=== PATIENT | male | born 1960 | race Caucasian/White ===

== ENCOUNTER 2018-09-20 00:25 | Outpatient (CLI) | payer MEDICAID, SELFPAY ==
--- NOTE | 2018-09-20 08:36 | DI.RAD_ITS ---
SYMPTOM/DIAGNOSIS; CHRONIC PAIN LEFT FOOT: Generalized osteoporosis is demonstrated. Post surgical changes involving the left great toe are noted, presumably in connection with hallux valgus surgery. There is DJD involving the interphalangeal joints, intertarsal joints and tarsal metatarsal joints. There is no evidence of a localized area of bony destruction. There is some soft tissue prominence over the distal foot. RIGHT FOOT: A hallux valgus deformity is demonstrated and there are flexion deformities involving the toes. DJD is identified at the first metatarsal phalangeal joint, intertarsal and tarsal metatarsal joints. There is no evidence of a localized area of bony destruction or mass. There is some mild soft tissue prominence over the dorsum of the distal foot.
== END 2018-09-20 00:45 ==
PROVIDERS: PCP General Practice; Visit Provider General Practice
DX: M79.671 Pain in right foot (principal); M79.672 Pain in left foot; G89.29 Other chronic pain; M81.0 Age-related osteoporosis without current pathological fracture; M19.072 Primary osteoarthritis, left ankle and foot; M20.31 Hallux varus (acquired), right foot; M21.271 Flexion deformity, right ankle and toes; M19.071 Primary osteoarthritis, right ankle and foot
CPT/HCPCS: 73630

== ENCOUNTER 2018-10-21 14:45 | Outpatient (CLI) | payer MEDICAID, SELFPAY ==
[2018-10-21 15:47] LABS: Anion Gap 12.3 mmol/L (3-11); BUN 21 mg/dL (7-18); CO2 27.7 mmol/L (21.0-32.0); CREATININE 1.53 mg/dL (0.70-1.30); Chloride 102 mmol/L (98-107); Estimated GFR 46.66 (mL/min/1.73m2); Potassium 3.6 mmol/L (3.5-5.1); Sodium 142 mmol/L (136-145)
== END 2018-10-21 15:05 ==
PROVIDERS: PCP General Practice; Visit Provider General Practice
DX: I10 Essential (primary) hypertension (principal)
CPT/HCPCS: 36415; 80051; 84520; 82565

== ENCOUNTER 2018-11-30 13:06 | Outpatient (CLI) | payer MEDICAID, SELFPAY ==
[2018-11-30 14:01] LABS: Uric Acid 8.9 mg/dL (3.5-7.2)
== END 2018-11-30 13:26 ==
PROVIDERS: PCP General Practice; Visit Provider General Practice
DX: M10.9 Gout, unspecified (principal)
CPT/HCPCS: 36415; 84550

== ENCOUNTER 2019-02-01 13:04 | Outpatient (CLI) | payer MEDICAID, SELFPAY ==
[2019-02-01 14:15] LABS: Anion Gap 8.8 mmol/L (3-11); BUN 45 mg/dL (7-18); CO2 28.2 mmol/L (21.0-32.0); CREATININE 2.01 mg/dL (0.70-1.30); Chloride 104 mmol/L (98-107); Estimated GFR 34.06 (mL/min/1.73m2); Potassium 4.1 mmol/L (3.5-5.1); Sodium 141 mmol/L (136-145)
== END 2019-02-01 13:24 ==
PROVIDERS: PCP General Practice; Visit Provider General Practice
DX: I10 Essential (primary) hypertension (principal)
CPT/HCPCS: 36415; 80051; 84520; 82565

== ENCOUNTER 2019-06-23 10:57 | Emergency (ER) | payer MEDICAID, SELFPAY ==
[2019-06-23 11:03] VITALS: BP 137/88; PULSE 82; RESP 18; TEMP 36.4; O2SAT 100
--- NOTE | 2019-06-23 11:03 | ED.GENADUL_ITS ---
Discharge Plan Disposition Patient Disposition: HOME Condition: Good Discharge Details Chief Complaint: RespSymp Clinical Impression: Cough Primary Care Provider: Unknown,Unknown ED Provider: Pat Quintana Home Meds and New Rx's Prescriptions: No Action latanoprost 0.005 % Drops 1 drp OPHTHALMIC (EYE) QPM RF: 0 amlodipine 10 mg Tablet 10 mg PO DAILY RF: 0 indomethacin 25 mg Capsule 25 mg PO DIRECTED RF: 0 hydrochlorothiazide 25 mg Tablet 25 mg PO DAILY RF: 0 metoprolol tartrate 25 mg Tablet 25 mg PO BID RF: 0 Discharge Instructions Instructions: Acute Cough (ED) Additional Instructions: Encourage water intake. Your evaluation today is reassuring. I am concerned that your cough may be associated with your lisinopril. I placed a call to Dr. Vee, to whom you will be referred for primary care, I am awaiting her callback. I will call you to discuss medication changes. If develop difficulty breathing, shortness of breath, chest pain or other new/worsening symptoms please seek care urgently once again. Otherwise, with plan to follow-up primary care next week. Care management will be in touch. Referrals: Gisela Vee [ NON-[facility] STAFF PHYSICIAN] - Discharge Data Discharge Date/Time-TO BE ENTERED AT DEPARTURE: 06/23/19 14:11 Medical Decision Making Patient is a pleasant 58-year-old male presenting today with chief complaint of cough. He reports a cough is been intermittent for the past month. States is been quite dry with no phlegm production. He denies any fevers chills. Denies any sore throat, congestion, chest pain. No recent travel. Denies any GI upset. States that this recent episode of coughing has been present for approximate the past week. He has not been feeling short of breath. Denies any history of COPD. Patient is neck smoker, last month approximately 30 years ago. Does report distant history of CHF, last issue especially 20 years ago. We do not have any medical history or medication list in the patient's chart. He does not know what medications he is on. These have been requested from his pharmacy by nursing staff. Will attempt to find more information on this patient. Patient only endorses history of HTN. STates he is taking medications for this. On exam, patient appears nontoxic. Vital signs are stable. Lungs are clear. He does have a bilateral lower extremity edema. He has a dressing over the left mid calf where he reports he has a chronic healing wound is being followed by [facility] [place]. Patient has a shuffled gait, he states htis is baseline and assocaiates with chronic foot issues for which he sees first aid instructor Plan for chest x-ray, laboratory evaluation. Will obtain EKG. At this point, I do not suspect the patient has ACS although we will be overly cautious and perform EKG and troponin. He is not having any chest pain. This is not exertional. With the extremity edema and a cough that has been present for the last month, I am concerned for CHF exacerbation. Also consider pulmonary embolism find this unlikely with no recent travel, no risk factors, no chest pain, pleuritic pain or shortness of breath. Also consider possible infectious etiology. No history of homelessness, hx of service or high risk factors for TB. Doubt pneumonia or influenza. EKG was reviewed by Dr. Locke. Patient's normal sinus rhythm with a rate of 79. Does have some nonspecific T wave abnormalities but no evidence of STEMI or acute ischemic pathology. Consulted with radiology. They advised that while there is a poor inspiratory effort, no acute pathology is noted on chest x-ray. Labs reviewed. No leukocytosis. Patient is mildly anemic. BUN is elevated 25 and creatinine is 1.57, this is baseline for the patient. Troponin is less than 0.05. BNP is normal at 69. Labs reviewed. Patient is on lisinopril. States that he has been taking lisinopril for several years. This is likely contributing to the patient's cough. Plan to consult with his new primary care please change him to a different antihypertensive Attempted to reach in service education teacher physician, did not reach them. Discussed medications further, patient had reported using Lisinopril but pharmacy reports that he is actually on amlodipine and not on lisinopril. Patient is unclear when he switched. At this time, I see no evidence of emergent pathology. History and exam is inconcistent with ACS, PE, no evdience of pneumonia. At this time, patient will be referred to PCP, I have asked our child caregiver private home to help arrange for f/u with PCP next week. All of the patients questions and concerns were addressed, he is in agreement with this plan. HPI General Mode of arrival: ambulatory . Date/Time Provider Initiated Documentation: 06/23/19 11:03 . Limitations to Documentation: no limitations . Information obtained by: patient and RN notes reviewed . History of Present Illness 58 year old M presents to the emergency department with the chief complaint of intermittent cough, described as mild, Patient started experiencing this month(s) (1) and it has been intermittent. No relieving factors improve symptom(s), No exacerbating factors reported . Patient notes no other symptoms. and cough; denies chest pain, diaphoresis, fever/chills, loss of appetite, malaise, nausea/vomiting, rash, shortness of breath and weakness. Patient did receive the following treatments prior to arrival, none Related Data Home Medications Medication Instructions Recorded Confirmed amlodipine 10 mg PO DAILY 06/23/19 06/23/19 hydrochlorothiazide 25 mg PO DAILY 06/23/19 06/23/19 indomethacin 25 mg PO DIRECTED 06/23/19 06/23/19 latanoprost 1 drp OPHTHALMIC (EYE) QPM 06/23/19 06/23/19 metoprolol tartrate 25 mg PO BID 06/23/19 06/23/19 Allergies Allergy/AdvReac Type Severity Reaction Status Date / Time No Known Allergies Allergy Unverified 06/23/19 11:07 Review of Systems Constitutional Constitutional: Reports as per HPI, Denies chills, Denies fatigue, Denies fever(s), Denies headache(s), Denies lethargy, Denies poor appetite and Denies weight loss Eyes Eyes: Denies change in vision ENT Ears, Nose, Mouth, and Throat: Denies dizziness and Denies headache(s) Cardiovascular Cardiovascular: Reports as per HPI, Denies chest pain, Denies chest pain at rest, Denies chest pain with activity, Denies diaphoresis, Reports pedal edema, Reports edema, Reports leg edema, Denies lightheadedness, Denies radiating jaw, neck or arm pain, Denies palpitations, Denies dyspnea and Denies dyspnea on exertion Respiratory Respiratory: Reports as per HPI, Denies chest congestion, Reports cough, Denies hemoptysis, Denies excessive phlegm production (states cough has been dry), Denies pain on inspiration, Denies pain with cough, Denies dyspnea, Denies dyspnea on exertion and Denies wheezing Gastrointestinal Gastrointestinal: Reports as per HPI, Denies abdominal pain, Denies diarrhea, Denies nausea and Denies vomiting Genitourinary Genitourinary: Denies system reviewed and no additional complaints, except as docu (denies change in urinary habits) Musculoskeletal Musculoskeletal: Reports as per HPI and Denies back pain Integumentary/Breasts Skin/Breast: Reports as per HPI and Denies rash Neurologic Neurologic: Reports as per HPI, Denies dizziness and Denies headache(s) Endocrine Endocrine: Denies fatigue and Denies palpitations Allergic/Immunologic Allergic/Immunologic: Denies wheezing PFSH Social History Smoking/Tobacco Use Status: Former Tobacco Use Alcohol Intake: former Exam Const General: cooperative, healthy appearing, comfortable, no acute distress and well developed Nutritional Appearance: well nourished and overweight Orientation: alert, awake and oriented x3 HENMT Head: normal to inspection Ears: hearing grossly normal bilaterally Mouth: moist mucous membranes Chest Chest: normal inspection of the chest, normal palpation of entire chest wall and no crepitus Resp Effort & Inspection: normal respiratory effort, able to speak in complete sentences and no respiratory distress Auscultation: clear to auscultation bilaterally, no rales, no rhonchi and no wheezes Cardio Rate: regular rate Rhythm: regular rhythm Heart Sounds: S1 normal and S2 normal GI Inspection: normal to inspection, no edema and non-distended Palpation: soft, no hepatosplenomegaly, not firm, no guarding, not rigid and nontender Auscultation: normal bowel sounds Skin Wounds: wounds noted (chronic, healing wound LLE) Neuro General: alert, awake and oriented x3 Cognition: normal cognition Speech: speech normal Gait: normal gait Extrem General: normal capillary refill, no calf tenderness, abnormal gait (patient states difficulty at baseline secondary to chronic foot pain) and edema (1+ BLE edema) Laterality: bilateral Psych Appearance: grossly normal and well kempt Mental Status: mental status grossly normal Speech and Movement: speech and movement normal
--- NOTE | 2019-06-23 11:30 | DI.RAD_ITS ---
EXAM: XR CHEST 2V PA LATERAL INDICATION: cough. COMPARISON: No exams were available for comparison TECHNIQUE: 2D digital imaging was performed. FINDINGS: Exam is limited by poor pulmonary inflation on both views. The heart size is within normal limits. The aorta is tortuous. The lungs are grossly clear. IMPRESSION: Limited exam. No acute abnormality. DATA REPOSITORY: RADIATION DOSE DELIVERED:
[2019-06-23 11:54] LABS: Abs Immature Grans 0.02 k/cumm (0.0-0.09); Absolute Basophil Count 0.03 k/cumm (0.0-0.2); Absolute Eosinophil Count 0.44 k/cumm (0.0-0.7); Absolute Lymphocyte Count 1.74 k/cumm (1.2-3.4); Absolute Monocyte Count 0.74 k/cumm (0.11-0.7); Absolute Neutrophil Count 3.56 k/cumm (1.2-6.7); Basophils % 0.5; Eosinophils % 6.7; HCT 38.8 % (40.0-50.0); HGB 12.6 g/dL (13.5-17.5); Immature Grans % 0.3 %; Lymphocytes % 26.6; Mean Corp. HGB Concentration 32.5 g/dL (32.0-36.0); Mean Corpuscular Hemoglobin 28.3 pg (27.0-33.0); Mean Platelet Volume 8.9 fL (8.0-11.0); Monocytes % 11.3; Neutrophils % 54.6; Platelet Count 325 x1000/uL (130-400); RBC 4.46 m/cumm (4.50-6.00); White Blood Cell Count 6.53 k/cumm (4.4-10.8)
[2019-06-23 12:16] LABS: ALT 36 U/L (16-63); AST 21 U/L (15-37); Albumin 3.4 g/dL (3.4-5.0); Alkaline Phosphatase 67 U/L (46-116); Anion Gap 11.1 mmol/L (3-11); BUN 25 mg/dL (7-18); Bilirubin, Total 0.1 mg/dL (0.2-1.0); CO2 24.9 mmol/L (21.0-32.0); CREATININE 1.57 mg/dL (0.70-1.30); Calcium 8.2 mg/dL (8.5-10.1); Chloride 106 mmol/L (98-107); Estimated GFR 45.29 (mL/min/1.73m2); Glucose 114 mg/dL (74-106); NT-proBNP 69 pg/mL (<300); Sodium 142 mmol/L (136-145); Total Protein 7.2 g/dL (6.4-8.2); Troponin I < 0.05 ng/Ml (<0.06)
[2019-06-23 14:00] VITALS: BP 145/94; PULSE 78; RESP 18; TEMP 36.4; O2SAT 96
== END 2019-06-23 14:11 | disposition home or self-care (01) ==
PROVIDERS: Emergency Provider Physician Assistant
DX: R05 Cough (principal); I10 Essential (primary) hypertension
CPT/HCPCS: 80053; 93005; 99283; 71046; 83735; 83880; 84484; 85025; 93010

== ENCOUNTER 2020-01-08 12:48 | Inpatient (IN) | payer MEDICAID, SELFPAY ==
[2020-01-08] VITALS (7 sets, daily range): BP systolic 118–168; BP diastolic 72–91; PULSE 92–119; RESP 19–20; TEMP 37.1–39; O2SAT 94–98
--- NOTE | 2020-01-08 12:45 | RT.EKG_ITS ---
APPROVED REPORT Exam: Resting ECG Patient Location: E HR:104 bpm ECG Measurements Heart Rate 104 AXIS ND 165 P 54 QRSd 101 QRS -34 QT 357 T 123 QTc 469 Conclusion Sinus tachycardia...rate> 99 Left axis deviation...QRS axis (-30,-90) Abnormal T, consider ischemia, lateral leads...T <-0.20mV, I aVL V5 V6 sinus tachycardia at 104, left axis deviation, T wave inversion lead I and aVL, no STEMI, nondiagnost ic EKG
[2020-01-08 13:41] LABS: Abs Immature Grans 0.05 10^3/uL (0.0-0.06); Absolute Basophil Count 0.03 10^3/uL (0.0-0.2); Absolute Eosinophil Count 0.07 10^3/uL (0.0-0.7); Absolute Neutrophil Count 7.55 10^3/uL (1.2-6.7); Basophils % 0.3; Eosinophils % 0.7; HCT 39.9 % (40.0-50.0); HGB 12.8 g/dL (13.5-17.5); Immature Grans % 0.5; Lymphocytes % 10.2; MCH 27.5 pg (27.0-33.0); MCHC 32.1 % (32.0-36.0); MCV 85.8 fL (80-95); Monocytes % 11.2; Neutrophils % 77.1; Nucleated RBC 0 %; Platelet Count 287 10^3/uL (130-400); RBC 4.65 10^6/uL (4.36-5.78); RDW 13.9 % (11.8-14.1); RDW-SD 43.4 fL
[2020-01-08 13:57] LABS: ALT 24 U/L (16-63); AST 16 U/L (15-37); Albumin 3.2 g/dL (3.4-5.0); Alkaline Phosphatase 62 U/L (46-116); Anion Gap 10.7 mmol/L (3-11); BUN 25 mg/dL (7-18); Bilirubin, Total 0.7 mg/dL (0.2-1.0); CO2 22.3 mmol/L (21.0-32.0); CREATININE 1.78 mg/dL (0.70-1.30); Calcium 8.9 mg/dL (8.5-10.1); Chloride 102 mmol/L (98-107); Creatine Kinase 88 U/L (39-308); Estimated GFR 39.05 (mL/min/1.73m2); Glucose 91 mg/dL (74-106); Potassium 3.7 mmol/L (3.5-5.1); Sodium 135 mmol/L (136-145); Total Protein 7.6 g/dL (6.4-8.2); Troponin I < 0.05 ng/mL (<0.06)
--- NOTE | 2020-01-08 13:57 | DI.RAD_ITS ---
EXAM: XR PORTABLE CHEST AP CLINICAL HISTORY: generalized weakness TECHNIQUE: 2D digital imaging was performed. COMPARISON: CR XR CHEST 2V PA LATERAL from 06/23/2019 FINDINGS: Exam is limited by poor pulmonary inflation. The heart size is within normal limits. The lungs are grossly clear. IMPRESSION: No acute pulmonary findings. DATA REPOSITORY: RADIATION DOSE DELIVERED:
--- NOTE | 2020-01-08 14:17 | DI.VRAD_ITS ---
PROCEDURE INFORMATION: Exam: XR Chest, 1 View Exam date and time: 01/08/2020 1:58 PM Age: 59 years old Clinical indication: Other: Weakness TECHNIQUE: Imaging protocol: XR of the chest Views: 1 view. COMPARISON: CR XR CHEST 2V PA LATERAL 06/23/2019 12:42 PM FINDINGS: Lungs: Unremarkable. No consolidation. Pleural space: Unremarkable. No pleural effusion. No pneumothorax. Heart/Mediastinum: Unremarkable. No cardiomegaly. Bones/joints: Degenerative thoracic spine. IMPRESSION: No acute findings. Dictated and Authenticated by: Aki Garcia MD. Ordering:TIMBO San MD
--- NOTE | 2020-01-08 14:27 | ED.GENADUL_ITS ---
Discharge Plan Disposition Condition: Improving Discharge Details Chief Complaint: GenMedical Admit Date/Time: 01/09/20 09:14 Admit Provider: Sarmad Kahn Attending Provider: Sarmad Kahn Primary Care Provider: Viridiana Torres ED Provider: Mena Locke Discharge Instructions Activity:: Activity as Tolerated Equipment/Supplies:: No Equipment Needed Diet:: As Tolerated Discharge Orders Discharge Orders: Discharge Order (Routine); Ordered 01/11/20 Ordered By: Liliana Del Castillo Discharge Data Discharge Date/Time-TO BE ENTERED AT DEPARTURE: 01/08/20 16:40 Medical Decision Making Will Quezada is a 59 y/o man with h/o rheumatoid and osteoarthritis, gout, HTN who presented to the emergency department with generalized arthralgias worse in wrists and knees causing him to not move from a chair even to use the bathroom over the pat 2 days. No TTP of joints on exam, significant pain with ranging knees and wrists. Concern for rheumatoid arthritis flare. Doubt gout, metabolic/lyte derangement. Exam/hx not c/w septic arthritis, meningitis, acute spinal cord pathology, CVA. Also doubt ACS, sepsis, other acute life-threatening process, but given no mobility from chair in two days plan for screening labs, EKG, UA, CXR. CXR negative. Labs non-diagnostic. Plan for steroids, admission for pain control, further eval, PT/OT. Clinical Impression: severe joint pain, ambulatory dysfunction Disposition: [facility] inpt Medical Records Medical records reviewed: Yes I reviewed the patient's medical records. Imaging Data Radiologic Study: Attestation: I personally reviewed and interpreted this imaging study as follows: Radiologist's impression: Exam(s) PROCEDURE INFORMATION: Exam: XR Chest, 1 View Exam date and time: 01/08/2020 1:58 PM Age: 59 years old Clinical indication: Other: Weakness TECHNIQUE: Imaging protocol: XR of the chest Views: 1 view. COMPARISON: CR XR CHEST 2V PA LATERAL 06/23/2019 12:42 PM FINDINGS: Lungs: Unremarkable. No consolidation. Pleural space: Unremarkable. No pleural effusion. No pneumothorax. Heart/Mediastinum: Unremarkable. No cardiomegaly. Bones/joints: Degenerative thoracic spine. IMPRESSION: No acute findings. Lab Data Lab results reviewed: Yes I reviewed the patient's lab results. Labs: Laboratory Tests Range/Units 01/08/20 01/08/20 01/08/20 13:35 13:35 13:35 WBC (4.4-10.8) 10^3/uL 9.80 RBC (4.36-5.78) 10^6/uL 4.65 Hgb (13.5-17.5) g/dL 12.8 L Hct (40.0-50.0) % 39.9 L MCV (80-95) fL 85.8 MCH (27.0-33.0) pg 27.5 MCHC (32.0-36.0) % 32.1 RDW (11.8-14.1) % 13.9 Plt Count (130-400) 10^3/uL 287 MPV (8.0-11.0) fL 9.0 Immature Gran % 0.5 Neutrophils % 77.1 Lymphocytes % 10.2 Monocytes % 11.2 Eosinophils % 0.7 Basophils % 0.3 Nucleated RBC % % 0 Absolute Neutrophils (1.2-6.7) 10^3/uL 7.55 H Absolute Lymphocytes (1.2-3.4) 10^3/uL 1.00 L Absolute Monocytes (0.1-0.8) 10^3/uL 1.10 H Absolute Eosinophils (0.0-0.7) 10^3/uL 0.07 Absolute Basophils (0.0-0.2) 10^3/uL 0.03 VBG Lactate (0.6-1.4) mmol/L 1.0 Sodium (136-145) mmol/L 135 L Potassium (3.5-5.1) mmol/L 3.7 Chloride (98-107) mmol/L 102 Carbon Dioxide (21.0-32.0) mmol/L 22.3 Anion Gap (3-11) mmol/L 10.7 BUN (7-18) mg/dL 25 H Creatinine (0.70-1.30) mg/dL 1.78 H Estimated GFR/1.73 m2 (mL/min/1.73m2) 39.05 Glucose (74-106) mg/dL 91 Calcium (8.5-10.1) mg/dL 8.9 Magnesium (1.8-2.4) mg/dL 2.0 Total Bilirubin (0.2-1.0) mg/dL 0.7 AST (15-37) U/L 16 ALT (16-63) U/L 24 Alkaline Phosphatase (46-116) U/L 62 Creatine Kinase (39-308) U/L 88 Troponin I (<0.06) ng/mL < 0.05 Total Protein (6.4-8.2) g/dL 7.6 Albumin (3.4-5.0) g/dL 3.2 L ECG Data Attestation: I personally reviewed and interpreted this ECG (s) as follows: Interpretation: EKG shows sinus tachycardia at 104, left axis deviation, T wave inversion lead I and aVL, no STEMI, nondiagnostic EKG HPI General Mode of arrival: EMS . Date/Time Provider Initiated Documentation: 01/08/20 12:57 . Limitations to Documentation: no limitations . Information obtained by: patient, RN notes reviewed and old records reviewed . HPI Narrative: Will Quezada is a 59 y/o man with h/o rheumatoid arthritis on hydroxychloroquine, osteoarthritis, HTN, and gout presenting to the emergency department with joint pain. Pt reports that he was diagnosed with rheumatoid and osteoarthritis years ago and is currently having an arthritis flare for the past 3 days. Pt reports that he ran out of HCTZ a few days ago but has been taking his other medication as usual. Pt reports that his pain has been so severe that he has not been able to get out of his chair for the past 2 days. Pt reports pain is everywhere, all of my joints, but worse in both knees and wrists. Pt reports that pain is same in quality and location as past arthritis flares but worse in severity with this episode. He denies chest pain, abdominal pain, back pain, vomiting, diarrhea, numbness, weakness, fever, rash. Pt reports that other than joint pain he feels well and in his usual state of health. Related Data Home Medications Medication Instructions Recorded Confirmed allopurinol 300 mg PO DAILY #30 tab 01/11/20 amlodipine 10 mg PO DAILY #30 tab 01/11/20 colchicine [Colcrys] 0.6 mg PO DAILY #14 tab 01/11/20 furosemide 20 mg PO DAILY #30 tab 01/11/20 hydroxychloroquine 200 mg PO BID #30 tab 01/11/20 lisinopril 20 mg PO DAILY #30 tab 01/11/20 metoprolol tartrate 25 mg PO BID #60 tab 01/11/20 prednisone 50 mg PO DAILY #50 tab 01/11/20 Previous Rx's Medication Instructions Recorded allopurinol 300 mg PO DAILY #30 tab 01/11/20 amlodipine 10 mg PO DAILY #30 tab 01/11/20 colchicine [Colcrys] 0.6 mg PO DAILY #14 tab 01/11/20 furosemide 20 mg PO DAILY #30 tab 01/11/20 hydroxychloroquine 200 mg PO BID #30 tab 01/11/20 lisinopril 20 mg PO DAILY #30 tab 01/11/20 metoprolol tartrate 25 mg PO BID #60 tab 01/11/20 prednisone 50 mg PO DAILY #50 tab 01/11/20 Allergies Allergy/AdvReac Type Severity Reaction Status Date / Time No Known Allergies Allergy Unverified 01/08/20 12:56 General Stated Complaint: GenMedical JT: 3 Review of Systems Narrative: Constitutional: denies fevers Eyes: denies eye pain ENT: denies ear pain, dental pain, sore throat Cardiovascular: denies chest pain, edema Respiratory: denies SOB, cough GI: denies abdominal pain, vomiting, diarrhea : denies flank pain MSK: denies back pain, neck pain, myalgias, reports generalized arhtralgias worse in b/l knees and b/l wrists Skin: denies rash Neuro: denies headaches, numbness, weakness PFSH Medical History Cough Gout HTN (hypertension) Social History Smoking/Tobacco Use Status: Former Tobacco Use Alcohol Intake: former Drug use: Never Substance use type: does not use Do you feel safe at home: Yes Do you feel safe in your relationship?: Yes Exam Narrative Exam Narrative: Constitutional: well and [id number], pleasant, conversing normally HENT: head atraumatic/normocephalic/normal inspection, mucous membranes moist Eyes: conjunctiva normal, sclera normal, pupils 3mm b/l Neck: no stridor, normal ROM, trachea midline Resp: normal work of breathing, LCTAB Cardio: normal rate, normal rhythm, no murmur appreciated Skin: warm, dry, normal color, no rash Neuro: alert, not altered, grossly non-focal, normal tone Ext: no edema, b/k knees without effusion/TTP/erythema/warmth, significant pain with minimal movement of knees, b/l wrists NTTP without effusion/erythema/warmth, moderate pain with ROM, no hip/ankle/shoulder/elbow TTP b/l. Psych: normal mood, normal affect, normal behavior Course Vital Signs Vital signs: Vital Signs Temperature 37.1 C 01/08/20 12:53 Pulse 92 H 01/08/20 12:53 Respiratory Rate 20 01/08/20 12:53 Blood Pressure 118/72 01/08/20 12:53 Pulse Oximetry 97 01/08/20 12:53 Temperature 37.1 C 01/08/20 12:53 Pulse 92 H 01/08/20 12:53 Respiratory Rate 01/08/20 13:04 Respiratory Effort 01/08/20 13:04 Respiratory Depth Normal 01/08/20 13:04 Respiratory Pattern Normal 01/08/20 13:04 Blood Pressure 118/72 01/08/20 12:53 Pulse Oximetry 97 01/08/20 12:53 Oxygen Delivery Method Room Air 01/08/20 12:53 Oxygen Flow Rate 0 01/08/20 12:53 Pain Level 4 01/08/20 12:53 Lab/Test Results Lab/Test Results: Laboratory Tests Range/Units 01/08/20 01/08/20 01/08/20 13:35 13:35 13:35 WBC (4.4-10.8) 10^3/uL 9.80 RBC (4.36-5.78) 10^6/uL 4.65 Hgb (13.5-17.5) g/dL 12.8 L Hct (40.0-50.0) % 39.9 L MCV (80-95) fL 85.8 MCH (27.0-33.0) pg 27.5 MCHC (32.0-36.0) % 32.1 RDW (11.8-14.1) % 13.9 Plt Count (130-400) 10^3/uL 287 MPV (8.0-11.0) fL 9.0 Immature Gran % 0.5 Neutrophils % 77.1 Lymphocytes % 10.2 Monocytes % 11.2 Eosinophils % 0.7 Basophils % 0.3 Nucleated RBC % % 0 Absolute Neutrophils (1.2-6.7) 10^3/uL 7.55 H Absolute Lymphocytes (1.2-3.4) 10^3/uL 1.00 L Absolute Monocytes (0.1-0.8) 10^3/uL 1.10 H Absolute Eosinophils (0.0-0.7) 10^3/uL 0.07 Absolute Basophils (0.0-0.2) 10^3/uL 0.03 VBG Lactate (0.6-1.4) mmol/L 1.0 Sodium (136-145) mmol/L 135 L Potassium (3.5-5.1) mmol/L 3.7 Chloride (98-107) mmol/L 102 Carbon Dioxide (21.0-32.0) mmol/L 22.3 Anion Gap (3-11) mmol/L 10.7 BUN (7-18) mg/dL 25 H Creatinine (0.70-1.30) mg/dL 1.78 H Estimated GFR/1.73 m2 (mL/min/1.73m2) 39.05 Glucose (74-106) mg/dL 91 Calcium (8.5-10.1) mg/dL 8.9 Magnesium (1.8-2.4) mg/dL 2.0 Total Bilirubin (0.2-1.0) mg/dL 0.7 AST (15-37) U/L 16 ALT (16-63) U/L 24 Alkaline Phosphatase (46-116) U/L 62 Creatine Kinase (39-308) U/L 88 Troponin I (<0.06) ng/mL < 0.05 Total Protein (6.4-8.2) g/dL 7.6 Albumin (3.4-5.0) g/dL 3.2 L
--- NOTE | 2020-01-08 16:21 | HPE_ITS ---
Date of service: 01/08/20 Time of Service: 16:21 Assessment and Plan Assessment and plan (1) Ambulatory dysfunction: Start date: 01/08/20 Start time: 16:28 Status: Acute Assessment and plan: Inability to move due to OA/RA, started on prednisone PT/OT consulted. (2) Osteoarthritis: Start date: 01/08/20 Start time: 16:28 Status: Chronic Assessment and plan: Take plaquinel for RA as above Qualifiers: Osteoarthritis location: multiple joints Osteoarthritis type: unspecified Qualified Code(s): M15.9 - Polyosteoarthritis, unspecified (3) Arthritis, rheumatoid: Start date: 01/08/20 Start time: 16:29 Status: Chronic Assessment and plan: as above Qualifiers: Rheumatoid arthritis location: multiple sites Rheumatoid factor presence: unspecified presence Qualified Code(s): M06.9 - Rheumatoid arthritis, unspecified (4) Gout: Start date: 01/08/20 Start time: 16:50 Status: Acute Assessment and plan: Left knee erythemic and swollen, will also r/o gout, uric acid, esr, crp Qualifiers: Gout site: multiple sites Chronicity: chronic (5) HTN (hypertension): Start date: 01/08/20 Start time: 16:29 Status: Chronic Assessment and plan: Monitor bp, will continue home medication above case discussed with Dr. Kahn who is in agreement. Qualifiers: Hypertension type: essential hypertension Qualified Code(s): I10 - Essential (primary) hypertension History of Present Illness History of Present Illness Chief Complaint: Ambulatory dysfunction and pain Narrative: 59 y.o male with PMH, HTN, CKD, RA/OA presents to [facility] ED with inability to ambulate over the weekend due to worsening joint pain. Mr. Quezada was sitting at his house all weekend unable to move due to worsening knee pain from his OA. He states he has not found a new provider since his last one and his pain has been getting worse. He was unable to get out of the chair causing him to defecate and urinate all over himself over the weekend. Labs unremark able, renal function at baseline, he takes his medications regularly he has been asked to be admitted to m/s obs for further management. He was started on prednisone in addition to plaquinel, PT/OT will be consulted as well. Review of Systems All systems reviewed & are unremarkable except as noted in HPI and below PFSH Medical History Cough (Inactive) Gout (Inactive) HTN (hypertension) (Chronic) Social History Smoking/Tobacco Use Status: Former Tobacco Use Alcohol Intake: former Drug use: Never Substance use type: does not use Do you feel safe at home: Yes Do you feel safe in your relationship?: Yes Meds Home Medications and Allergies Home Medications Medication Instructions Recorded Confirmed Type amlodipine 10 mg PO DAILY 06/23/19 01/08/20 History hydrochlorothiazide 25 mg PO DAILY 06/23/19 01/08/20 History allopurinol 300 mg PO DAILY 01/08/20 01/08/20 History furosemide 20 mg PO DAILY 01/08/20 01/08/20 History hydroxychloroquine 200 mg PO BID 01/08/20 01/08/20 History lisinopril 40 mg PO DAILY 01/08/20 01/08/20 History Allergies Allergy/AdvReac Type Severity Reaction Status Date / Time No Known Allergies Allergy Unverified 01/08/20 12:56 Exam Const General: ill appearing chronically Nutritional Appearance: obese Orientation: alert, awake and oriented x3 HENMT Head: normocephalic and atraumatic Eyes Pupils: PERRL EOM: EOM intact bilaterally Neck Neck: no JVD Resp Auscultation: clear to auscultation bilaterally Cardio Jugular venous pressure: no JVD Rate: regular rate Rhythm: regular rhythm Heart Sounds: S1 normal and S2 normal GI Palpation: soft and no hepatosplenomegaly Skin General skin exam: dry skin Lesions: no lesions Rashes: no rashes Neuro General: patient alert, patient awake and patient oriented x3 Psych Speech and Movement: speech and movement normal Mood: congruent mood Results Labs Result diagrams: 01/08/20 13:35 01/08/20 13:35 Labs: Laboratory Results - last 24 hr 01/08/20 01/08/20 01/08/20 13:35 13:35 13:35 WBC 9.80 RBC 4.65 Hgb 12.8 L Hct 39.9 L MCV 85.8 MCH 27.5 MCHC 32.1 RDW 13.9 Plt Count 287 MPV 9.0 Immature Gran % 0.5 Neutrophils % 77.1 Lymphocytes % 10.2 Monocytes % 11.2 Eosinophils % 0.7 Basophils % 0.3 Nucleated RBC % 0 Absolute Neutrophils 7.55 H Absolute Lymphocytes 1.00 L Absolute Monocytes 1.10 H Absolute Eosinophils 0.07 Absolute Basophils 0.03 VBG Lactate 1.0 Sodium 135 L Potassium 3.7 Chloride 102 Carbon Dioxide 22.3 Anion Gap 10.7 BUN 25 H Creatinine 1.78 H Estimated GFR/1.73 m2 39.05 Glucose 91 Calcium 8.9 Magnesium 2.0 Total Bilirubin 0.7 AST 16 ALT 24 Alkaline Phosphatase 62 Creatine Kinase 88 Troponin I < 0.05 Total Protein 7.6 Albumin 3.2 L Last Vital Signs Temp 37.1 C 01/08/20 12:53 Pulse 92 H 01/08/20 12:53 Resp 20 01/08/20 13:04 BP 118/72 01/08/20 12:53 Pulse Ox 97 01/08/20 12:53 COVID-19 Screening Have you,or household,traveled outside [place] in last 14 days?: No Had IN PERSON contact w/suspected or confirmed C-19 person: No
[2020-01-08 17:37] LABS: Bilirubin Negative (Negative); Blood Moderate (Negative); Clarity Clear (Clear); Glucose Negative (Negative); Ketones Negative (Negative); Leukocyte Esterase Negative (Negative); Nitrite Negative (Negative); Specific Gravity >= 1.030 (1.005-1.025); Urobilinogen 0.2 EU/dL (Up TO 0.2); pH 5.5 (5-8)
[2020-01-08 17:42] LABS: C-Reactive Protein 23.48 mg/dL (0.0-0.3); Uric Acid 9.1 mg/dL (3.5-7.2)
[2020-01-08 17:50] LABS: Troponin I < 0.05 ng/mL (<0.06)
[2020-01-08 17:53] LABS: Bacteria Few HPF (Negative); C & S Indicated? No; Casts Negative LPF (Negative); Crystals Negative HPF (Negative); Epithelial Cells Negative HPF (Negative); Mucus Trace (Negative); Other Cells Negative (Negative); WBC Negative HPF (0-5)
[2020-01-08] MEDS: Acetaminophen 325 MG TAB 650 MG PO (18:20)
[2020-01-08] MEDS: traMADol 50 MG TAB PO (18:20)
[2020-01-08 18:38] LABS: ESR 59 mm/hr (1-20)
[2020-01-08] MEDS: Normal Saline Flush 10 ML SYR IVP (19:56)
[2020-01-08] MEDS: Enoxaparin 40 MG/0.4 ML SYR SC (19:56)
[2020-01-08] MEDS: Hydroxychloroquine 200 MG TAB PO (19:56)
[2020-01-09 03:49] VITALS: BP 147/88; PULSE 101; RESP 16; TEMP 37.9; O2SAT 95
[2020-01-09] MEDS: hydroCHLOROthiazide 25 MG TAB PO (08:01)
[2020-01-09] MEDS: predniSONE 20 MG TAB 60 MG PO (08:01)
[2020-01-09] MEDS: Furosemide 20 MG TAB PO (08:02)
[2020-01-09] MEDS: Omeprazole 20 MG CAPCR PO (08:02)
[2020-01-09] MEDS: amLODIPine 10 MG TAB PO (08:02)
[2020-01-09] MEDS: traMADol 50 MG TAB PO ×2 (08:02→14:39)
[2020-01-09] MEDS: Allopurinol 300 MG TAB PO (08:02)
[2020-01-09] MEDS: Hydroxychloroquine 200 MG TAB PO ×2 (08:02→19:36)
[2020-01-09 08:18] LABS: COVID-19 RT-PCR UVMMC Result Negative (Negative)
[2020-01-09 08:26] VITALS: BP 131/79; PULSE 115; RESP 19; TEMP 37.8; O2SAT 96
[2020-01-09 08:29] VITALS: TEMP 37.8
[2020-01-09] MEDS: Acetaminophen 325 MG TAB 650 MG PO (08:29)
--- NOTE | 2020-01-09 08:49 | PDOC.CMIN ---
- If Service Date Differs Date of service: 01/09/20 Time of Service: 17:16 Care Management Initial Assess REASON FOR HOSPITALIZATION:: Pain, Ambulatory dysfunction PAST MEDICAL HISTORY/PAST SURGICAL HISTORY:: Cough, Gout, HTN, CKD, RA/OA presents to [facility] ED with inability to ambulate over the weekend due to worsening joint pain. Mr. Quezada was sitting at his house all weekend unable to move due to worsening knee pain from his OA. PREVIOUS FUNCTIONAL STATUS/SOCIAL/FAMILY SUPPORTS:: Will resides with his significant other in [place], [place]. He reports living locally for the last two years and enjoying his custodial. 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 He speaks highly of the company. Will reports his quality of life is limited by pain r/t RA and since his PCP retired, he has not been medically managed. He reports no longer seeing a [facility] RA specialist (previously Earline Bernal), labs not being monitored and medications not being refilled. He reports being able to drive but not currently having a vehicle. He reports being aware of local resources and does not identify any needs that are not currently being met (except his medical needs). CURRENT FUNCTIONAL STATUS:: Will is lying in bed, forthcoming with information and pleasant in action. ADVANCE DIRECTIVES:: None on file at [facility]. CODE STATUS:: Full Code INSURANCE COVERAGE / FINANCIAL ISSUES:: Medicaid CURRENT HOME/COMMUNITY SERVICES/EQUIPMENT:: No current services or equipment. PRIMARY CARE PHYSICIAN:: Referral faxed to Renaldo Will will require [facility] support for transportation to appointments. POTENTIAL DISCHARGE NEEDS:: Nutrition consult, physical therapy/occupational therapy evaluations, determination of discharge planning recommendations. PATIENT/FAMILY EDUCATION NEEDS:: Review of discharge instructions, discuss Ask Me Three. ANTICIPATED BARRIERS TO DISCHARGE:: None identified. TRANSPORTATION:: TBD by disposition. PLAN:: Will will be evaluated for further needs, CM continues to follow.
--- NOTE | 2020-01-09 09:02 | OT.INIE ---
Occupational Therapy Notes Inpatient Occupational Therapy Evaluation Date: 01/09/20 Referring Doctor:Nuha Almazan NP OT Orders: Non-Urgent Precautions: Fall, Standard, Full PATIENT PROFILE/ADMITTING DIAGNOSIS: Pt presented to the ED on 01/08/20 with c/o pain in his (B) LE. He was admitted to Med Surg with Gout, OA, RA, and HTN. Past Medical History- Medical History Cough (Inactive) Gout (Inactive) HTN (hypertension) (Chronic) Social History/Home Situation: Pt states that he lives in an apartment with his girlfriend. He reports that he has stairs to enter and that he has a walk in shower but denies discussing his baseline level of function reporting that he is (I) when he is not in pain. He can drive but is not currently as he is in between cars and he notes that he has no issues when the pain is not present. Pt reports that he utilizes a cane at times for functional mobility. Equipment owned/DME: Cane SUBJECTIVE: Pt was lying in bed when OT arrived. He is agreeable to OT session but slightly agitated as he reports a 5-7/10 pain throughout his (B) LE and (R) UE which he refuses to move at this time. OT does try to assess pt's baseline when he reports I would rather you figure out my pain because none of that matters. OBJECTIVE: General Observation: (R) UE with limited AROM, IV (R) UE, decreased (B) LE movement, pt expresses pain and pain behaviors throughout session. Mental Status: A&Ox3 Pain: 5-7/10 pain ROM: RUE Pt denies only slight shoulder flexion L UE AROM WFL STRENGTH: RUE pt has weak public health staff nurse strength LUE 4/5 throughout globally SENSATION: Intact (B) UE FUNCTIONAL MOBILITY/ADLS: Supine-sit (S) Sit-supine (S) BATHING Pt denies performance due to his pain. DRESSING Sitting in bed pt denies performance of don and doffing socks and reports that he is not interested. He was willing to perform AROM which he has AROM WFL of (L) UE which he states pain is the limiting factor. GROOMING Sitting in bed pt is able to touch the top of his head which is required for brushing hair. BALANCE: Static sitting Normal Dynamic Sitting Good SPECIAL TESTS: Daily Activity Limitations Standardized Measure [facility] AM -PAC ?6 clicks? Daily Activity Inpatient Short Form: Raw score: 13 Standardized score: 32.03 CMS score: 66.57% INFORMED CONSENT/EDUCATION: Pt instructed in purpose of OT Consult and plan of care. ASSESSMENT: Patient is a 59-year-old male referred to occupational therapy services with diagnosis of Gout, OA, RA, HTN. Patient presents with clinical signs and symptoms consistent with dx, as demonstrated by the following impairment level findings: Pain in (B) LE and (R) UE, decreased functional mobility required for ADL performance, decreased ADL/IADL performance which is limited due to pain, decrease performance of standing ADLs, inability to perform ADLs at baseline level of function. Impairments are contributing to the following functional limitations: Decreased functional mobility, decreased LE dressing and bathing, decreased (B) UE use for ADL performance. [facility] score 13 Patient is assessed as a Moderate 73026 complexity based on the following: History: see above Examination: see functional limitations as noted above Presentation: evolving Decision Making: [facility] 13 GOALS Goals x1 week 1. Transfers (I) from supine to sit and from bed-chair 2. Dressing (I) with don and doffing (B) socks, (I) don and doffing shirt 3. Bathing at sink (I) UE and seated in chair (I) (B) LE 4. Toileting on toilet (I) 5. Eating (I) PLAN OF CARE/TREATMENT PLAN: 1x/day, 5 days/ week x 1week Initiate Occupational Therapy Services for bathing, dressing, grooming, toileting, eating, transfer training. DISCHARGE RECOMMENDATIONS Pt is limited in his ADL/IADL routines due to pain. OT does feel that pt could return home when medically cleared per MD once pain is better managed. TREATMENT TIME/MINUTES/CODES 13819, 20 minutes (07:40) [facility]
[2020-01-09] MEDS: Colchicine 0.6 MG TAB 1.2 MG PO (10:19)
--- NOTE | 2020-01-09 10:58 | IN_ITS ---
Date of service: 01/09/20 Time of Service: 10:58 PT Notes Visit Reasons: PAIN, AMBULATORY DYSFUNCTION Physical Therapy Inpatient Initial Evaluation Date: 01/09/2020 Referring Doctor: Nuha Almazan NP PT Orders: PT CONSULT: Eval/treat. Precautions: Fall. Standard. Activity as tolerated. Patient Profile/Admitting Diagnosis: Will is a 59-year-old male who presented to the ED on 01/08/2020 with complaints of generalized pain and inability to walk. Patient is diagnosed with osteoarthritis, ambulatory dysfunction, gout, and hypertension with a referral for physical therapy for mobility progression and safety assessment. PMHX: Medical History Cough (Inactive) Gout (Inactive) HTN (hypertension) (Chronic) Social History/Home Situation: Lives with girlfriend in a private home with 10- 12 steps to enter with a rail on the right going up. Independent with household distances only using the single-point cane. 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 Equipment Owned/DME: Single-point cane Subjective: Will is not agreeable to getting out of bed until they can figure out his colchicine dosaging. He feels that waiting for the pain to be more manageable will be the best course of action as movement adds to his struggle. He states that he has not gotten bed since he came in yesterday. Objective: General Observation: IV access in left UE. Index finger, middle finger and ring finger on the left side and fixed MCP and IP extension as flexion causes pain. Elbow in flexion. Mental Status: Alert and oriented x4 Pain: 8/10 in the left upper extremity and 4?5/10 in bilateral knees and left ankle and foot ROM: Right Upper Extremity: Shoulder Flexion WFL. Shoulder abduction WFL. Elbow flexion WFL. Wrist flexion WFL. Opening and closing of hand WFL. Left Upper Extremity: Shoulder Flexion allows only up to 10 degrees of shoulder flexion due to pain. Shoulder abduction allows up to about 10 degrees due to pain. Elbow flexion unable to move due to pain, about 45 degrees of flexion. Wrist flexion unable due to pain. Unable to open and close hand due to pain. Right Lower Extremity: Hip flexion allows up to 90 degrees in supine. Hip abduction allows up to 10 degrees. Knee flexion up to 80 degrees. Ankle dorsiflexion unable due to pain. Ankle plantarflexion unable due to pain. Left Lower Extremity: Hip flexion unable due to pain. Hip abduction unable due to pain. Knee flexion unable due to pain. Ankle dorsiflexion unable due to pain. Ankle plantarflexion unable due to pain. Strength: Right Upper Extremity: Shoulder flexors 4-/5. Shoulder abductors 4-/5. Elbow flexors 4-/5. Elbow extensors 4-/5. Grain Broker strong. Left Upper Extremity: Shoulder flexors 3-/5. Shoulder abductors 3-/5. Elbow flexors 3-/5. Elbow extensors 3-/5. Grain Broker unable due to pain. Right Lower Extremity: Hip flexors 3--/5. Hip abductors 3-/5. Knee flexors 3-/5. Knee extensors 3-/5. Ankle dorsiflexors unable to test due to pain. Ankle plantarflexors unable to test due to pain. Left Lower Extremity: Unable due to pain. Sensation: Intact as to pain and pressure on bilateral lower extremities. Bed Mobility/Transfers: Patient refused due to pain complaint. Will assess in the next visit and coordinate with nurse for premedication for pain. Gait: Patient refused due to pain complaint. Will assess in the next visit and coordinate with nurse for premedication for pain. Balance: Patient refused due to pain complaint. Will assess in the next visit and coordinate with nurse for premedication for pain. Special Tests: Mobility Limitations Standardized Measure [facility] AM-PAC 6 clicks Basic Mobility Inpatient Short Form: Raw Score: 6 CMS Score: 100% deficit Informed Consent/Education: Patient instructed in purpose of PT consult and plan of care. Assessment: Will demonstrates severe mobility deficit limiting bed mobility, transfers, and ambulation performance resulting from significant pain complaint from gout and osteoarthritis. Premedication for pain will be needed to encouarge gradual return to mobility ADL task completion. Will is a 59-year-old male who presented to the ED on 01/08/2020 with complaints of generalized pain and inability to walk. Patient is diagnosed with osteoarthritis, ambulatory dysfunction, gout, and hypertension with a referral for physical therapy for mobility progression and safety assessment. Patient presents with clinical signs and symptoms consistent with current/admitting diagnoses that have resulted to mobility limitations, gait instability, generalized weakness, and impairment of motor control as demonstrated by the following impairment level findings: 1. Decreased strength to B UE/LE major muscle groups 2. Impaired sitting/standing balance 3. Impaired activity tolerance 4. Limitation of joint range of motion in B UE/LE Impairments are contributing to the following functional limitations: 1. Dependent bed mobility skills 2. Increased dependence with transfers 3. Inability to safely ambulate without assistive device and physical assistance 4. Increase completion time for mobility ADL performance 5. Increased fall risk 6. Inability to negotiate steps alone safely Patient is assessed as a 58611 moderate complexity based on the following: History: 59 [id number] with impairment level findings, functional limitations, and past medical history as indicated above Examination: Demonstrable impairment in strength, balance, and mobility level with underlying impairments and functional limitations as documented above Presentation:Evolving Decision Makin moderate complexity Goals: Goals X1 week 1. Supine-Sit standby assist 2. Sit-Supine standby assist 3. Sit-Stand standby assist 4. Stand-Sit standby assist 5. Bed-Chair standby assist 6. Chair-Bedstandby assist 7. Contact-guard assist for gait on level surface with use of least restrictive device for at least 300 feet without report of pain nor dyspnea 8. Contact-guard assist for stair negotiation while holding onto bilateral rails for at least 10 steps without report of pain nor dyspnea 9. Independent with home exercise program 10. Good static and dynamic standing balance/tolerance Plan of Care/Treatment Plan: 1-2x/day, 7 days/week x 1 week. Plan of care has been reviewed with the SPIN[employer]ING [employer]AME [employer]ER providing the service under Physical Therapy direction. Initiate Physical Therapy intervention for strengthening, bed mobility, transfers, gait, stairs, balance training, use of assistive device. DISCHARGE RECOMMENDATIONS: Patient will benefit from [facility] facility placement for continued skilled physical therapy services in order to progress mobility level, strength, and balance in preparation for a safe discharge to home. TREATMENT CODE/TIME: 11382 x 27 minutes beginning at 10:58 AM. Thank you for the opportunity to participate in the care of this patient. Mari Llamas PT, DPT, CLT [facility] [place], [place]
[2020-01-09] MEDS: Colchicine 0.6 MG TAB PO (11:25)
--- NOTE | 2020-01-09 13:53 | CHAPLAIN ---
Will was resting in bed when I visited. He told me that his girlfriend lives a stone's throw away from the hospital. He was very pleasant, but not interested in further conversation.
--- NOTE | 2020-01-09 14:35 | PGE_ITS ---
Date of Service Date of service: 01/09/20 Time of Service: 14:36 Assessment and Plan Assessment and plan (1) Ambulatory dysfunction: Status: Acute Assessment and plan: Inability to move due to OA/RA, started on prednisone PT/OT consulted. (2) Osteoarthritis: Status: Chronic Assessment and plan: Take plaquinel for RA as above Qualifiers: Osteoarthritis location: multiple joints Osteoarthritis type: unspecified Qualified Code(s): M15.9 - Polyosteoarthritis, unspecified (3) Arthritis, rheumatoid: Status: Chronic Assessment and plan: as above Qualifiers: Rheumatoid arthritis location: multiple sites Rheumatoid factor presence: unspecified presence Qualified Code(s): M06.9 - Rheumatoid arthritis, unspecified (4) Gout: Status: Acute Assessment and plan: started on colchicine Qualifiers: Gout site: multiple sites Chronicity: chronic (5) HTN (hypertension): Status: Chronic Assessment and plan: Monitor bp, will continue home medication above case discussed with Dr. Kahn who is in agreement. Qualifiers: Hypertension type: essential hypertension Qualified Code(s): I10 - Essential (primary) hypertension Subjective Subjective Interval history since last seen: c/o bilateral knee and left wrist/hand pain, still running temps with max 39.0 last evening, max 37.8. Exam Const General: ill appearing chronically Nutritional Appearance: obese Orientation: alert, awake and oriented x3 HENMT Head: normocephalic and atraumatic Eyes Pupils: PERRL EOM: EOM intact bilaterally Neck Neck: no JVD Resp Auscultation: clear to auscultation bilaterally Cardio Jugular venous pressure: no JVD Rate: regular rate Rhythm: regular rhythm Heart Sounds: S1 normal and S2 normal GI Palpation: soft and no hepatosplenomegaly Skin General skin exam: dry skin Lesions: no lesions Rashes: no rashes Neuro General: patient alert, patient awake and patient oriented x3 Psych Speech and Movement: speech and movement normal Mood: congruent mood Objective Objective Clinical Data: Abnormal lab results 01/08/20 01/08/20 01/08/20 Range/Units 17:15 17:20 17:20 ESR 59 H (1-20) mm/hr Uric Acid 9.1 H (3.5-7.2) mg/dL C-Reactive Protein 23.48 H (0.0-0.3) mg/dL Ur Specific [place] >= 1.030 H (1.005-1.025) Urine Protein 100 H (Negative) mg/dL Urine Blood Moderate H (Negative) Urine RBC 5-10 H (0-2) HPF Vital Signs Temperature 37.8 C H 01/09/20 08:29 Temperature Source Tympanic 01/09/20 08:26 Pulse 115 H 01/09/20 08:26 Pulse Rhythm Regular 01/09/20 09:13 Respiratory Rate 19 01/09/20 08:26 Respiratory Effort Non-Labored 01/09/20 09:13 Respiratory Depth Normal 01/09/20 09:13 Respiratory Pattern Normal 01/09/20 09:13 Blood Pressure 131/79 01/09/20 08:26 Pulse Oximetry 96 01/09/20 08:26 Oxygen Delivery Method Room Air 01/09/20 08:26 Oxygen Flow Rate 0 01/09/20 08:26 Pain Level 4 01/09/20 09:29 Intake & Output 01/08/20 01/09/20 01/09/20 23:59 11:59 23:59 Intake Total 480 / 480 Output Total 125 / 125 925 / 1325 400 / 1325 Balance -125 / -125 -445 / -845 -400 / -845 Weight 136.078 kg Intake: Oral 480 / 480 Output: Urine 125 / 125 925 / 1325 400 / 1325 Other: Urine Color Dark Ling Yellow Yellow Urine Appearance Clear Clear Clear Urine Odor Normal Strong Comment concentrated Voiding Methods Urinal Urinal Urinal Laboratory Results WBC 9.80 10^3/uL (4.4-10.8) 01/08/20 13:35 RBC 4.65 10^6/uL (4.36-5.78) 01/08/20 13:35 Hgb 12.8 g/dL (13.5-17.5) L 01/08/20 13:35 Hct 39.9 % (40.0-50.0) L 01/08/20 13:35 MCV 85.8 fL (80-95) 01/08/20 13:35 MCH 27.5 pg (27.0-33.0) 01/08/20 13:35 MCHC 32.1 % (32.0-36.0) 01/08/20 13:35 RDW 13.9 % (11.8-14.1) 01/08/20 13:35 Plt Count 287 10^3/uL (130-400) 01/08/20 13:35 MPV 9.0 fL (8.0-11.0) 01/08/20 13:35 Immature Gran % 0.5 01/08/20 13:35 Neutrophils % 77.1 01/08/20 13:35 Lymphocytes % 10.2 01/08/20 13:35 Monocytes % 11.2 01/08/20 13:35 Eosinophils % 0.7 01/08/20 13:35 Basophils % 0.3 01/08/20 13:35 Nucleated RBC % 0 % 01/08/20 13:35 Absolute Neutrophils 7.55 10^3/uL (1.2-6.7) H 01/08/20 13:35 Absolute Lymphocytes 1.00 10^3/uL (1.2-3.4) L 01/08/20 13:35 Absolute Monocytes 1.10 10^3/uL (0.1-0.8) H 01/08/20 13:35 Absolute Eosinophils 0.07 10^3/uL (0.0-0.7) 01/08/20 13:35 Absolute Basophils 0.03 10^3/uL (0.0-0.2) 01/08/20 13:35 ESR 59 mm/hr (1-20) H 01/08/20 17:20 VBG Lactate 1.0 mmol/L (0.6-1.4) 01/08/20 13:35 Sodium 135 mmol/L (136-145) L 01/08/20 13:35 Potassium 3.7 mmol/L (3.5-5.1) 01/08/20 13:35 Chloride 102 mmol/L (98-107) 01/08/20 13:35 Carbon Dioxide 22.3 mmol/L (21.0-32.0) 01/08/20 13:35 Anion Gap 10.7 mmol/L (3-11) 01/08/20 13:35 BUN 25 mg/dL (7-18) H 01/08/20 13:35 Creatinine 1.78 mg/dL (0.70-1.30) H 01/08/20 13:35 Estimated GFR/1.73 m2 39.05 (mL/min/1.73m2) 01/08/20 13:35 Glucose 91 mg/dL (74-106) 01/08/20 13:35 Uric Acid 9.1 mg/dL (3.5-7.2) H 01/08/20 17:20 Calcium 8.9 mg/dL (8.5-10.1) 01/08/20 13:35 Magnesium 2.0 mg/dL (1.8-2.4) 01/08/20 13:35 Total Bilirubin 0.7 mg/dL (0.2-1.0) 01/08/20 13:35 AST 16 U/L (15-37) 01/08/20 13:35 ALT 24 U/L (16-63) 01/08/20 13:35 Alkaline Phosphatase 62 U/L (46-116) 01/08/20 13:35 Creatine Kinase 88 U/L (39-308) 01/08/20 13:35 Troponin I < 0.05 ng/mL (<0.06) 01/08/20 17:20 C-Reactive Protein 23.48 mg/dL (0.0-0.3) H 01/08/20 17:20 Total Protein 7.6 g/dL (6.4-8.2) 01/08/20 13:35 Albumin 3.2 g/dL (3.4-5.0) L 01/08/20 13:35 Urine Color Yellow (Yellow) 01/08/20 17:15 Urine Clarity Clear (Clear) 01/08/20 17:15 Urine pH 5.5 (5-8) 01/08/20 17:15 Ur Specific [place] >= 1.030 (1.005-1.025) H 01/08/20 17:15 Urine Protein 100 mg/dL (Negative) H 01/08/20 17:15 Urine Ketones Negative mg/dL (Negative) 01/08/20 17:15 Urine Blood Moderate (Negative) H 01/08/20 17:15 Urine Nitrite Negative (Negative) 01/08/20 17:15 Urine Bilirubin Negative (Negative) 01/08/20 17:15 Urine Urobilinogen 0.2 EU/dL (Up TO 0.2) 01/08/20 17:15 Ur Leukocyte Esterase Negative (Negative) 01/08/20 17:15 Urine RBC 5-10 HPF (0-2) H 01/08/20 17:15 Urine WBC Negative HPF (0-5) 01/08/20 17:15 Ur Epithelial Cells Negative HPF (Negative) 01/08/20 17:15 Urine Crystals Negative HPF (Negative) 01/08/20 17:15 Urine Bacteria Few HPF (Negative) 01/08/20 17:15 Urine Casts Negative LPF (Negative) 01/08/20 17:15 Urine Mucus Trace (Negative) 01/08/20 17:15 Urine Other Negative (Negative) 01/08/20 17:15 Ur Culture Indicated? No 01/08/20 17:15 Urine Glucose Negative mg/dL (Negative) 01/08/20 17:15 COVID-19 PCR Cancelled 01/08/20 17:01 Nasopharyn COVID-19 PCR Cancelled 01/08/20 17:01 Ref Test Perform Site Cancelled 01/08/20 17:01
--- NOTE | 2020-01-09 15:24 | PTTR_ITS ---
Date of service: 01/09/20 Time of Service: 15:24 PT Notes Visit Reasons: PAIN, AMBULATORY DYSFUNCTION Physical Therapy Inpatient Treatment Note Date: 01/09/2020 Precautions: Fall. Standard. Activity as tolerated. Subjective: Emphasizing prevention of pneumonia and clots, patient is agreeable to sitting up and getting out of bed to transfer to reclining chair for the afternoon session. He complained of B knee pain during stand to sit movement transition. Objective: General Observation: IV access in left UE. Index finger, middle finger and ring finger on the left side able to bend and grasp nurse Jorge Luis' hand during forward scoot to edge of bed. Mental Status: Alert and oriented x4 Pain: 5/10 in B knees, L elbow Bed Mobility/Transfers: Supine to sit mod assist with HOB at 45 degrees Sit to stand minimal assist of 2, increased completion time due to pain Stand to sit minimal assist of 2, increased completion time due to pain Bed to chair minimal assist of 2, increased completion time due to pain Gait: 10-12 small steps using front and walker with full weightbearing and minimal assist of 2 with decreased step length/height and decreased marshall with moderate pain report in bilateral knees. Balance: Static Sitting: Good Dynamic Sitting: Good Static standing: Poor Dyanamic standing: Poor Assessment: Will demonstrates severe mobility deficit limiting bed mobility, transfers, and ambulation performance resulting from significant pain complaint from gout and osteoarthritis. Premedication for pain will be needed to encouarge gradual return to mobility ADL task completion. Will is a 59-year-old male who presented to the ED on 01/08/2020 with complaints of generalized pain and inability to walk. Patient is diagnosed with osteoarthritis, ambulatory dysfunction, gout, and hypertension with a referral for physical therapy for mobility progression and safety assessment. Patient presents with clinical signs and symptoms consistent with current/admitting diagnoses that have Plan of Care/Treatment Plan: 1-2x/day, 7 days/week x 1 week. Plan of care has been reviewed with the CARDIOPULMONARY TECHNOLOGIST providing the service under Physical Therapy direction. Initiate Physical Therapy intervention for strengthening, bed mobility, transfers, gait, stairs, balance training, use of assistive device. DISCHARGE RECOMMENDATIONS: Patient will benefit from [facility] for continued skilled physical therapy services in order to progress mobility level, strength, and balance in preparation for a safe discharge to home. TREATMENT CODE/TIME: 20260 x 24 minutes beginning at 15:24 PM.
[2020-01-09 15:36] VITALS: BP 118/71; PULSE 98; RESP 18; TEMP 36.1; O2SAT 93
[2020-01-09 19:29] VITALS: BP 128/80; PULSE 109; RESP 18; TEMP 36.8; O2SAT 95
[2020-01-09] MEDS: Enoxaparin 40 MG/0.4 ML SYR SC (19:36)
[2020-01-09] MEDS: Normal Saline Flush 10 ML SYR IVP (21:18)
[2020-01-10] MEDS: traMADol 50 MG TAB PO ×2 (00:05→07:50)
[2020-01-10 03:15] VITALS: BP 133/78; PULSE 95; RESP 18; TEMP 36.6; O2SAT 96
[2020-01-10 07:18] VITALS: BP 124/81; PULSE 95; RESP 18; TEMP 36.7; O2SAT 96
[2020-01-10] MEDS: Allopurinol 300 MG TAB PO (07:50)
[2020-01-10] MEDS: Hydroxychloroquine 200 MG TAB PO ×2 (07:50→19:49)
[2020-01-10] MEDS: Omeprazole 20 MG CAPCR PO (07:50)
[2020-01-10] MEDS: Colchicine 0.6 MG TAB PO (07:51)
[2020-01-10] MEDS: predniSONE 20 MG TAB 60 MG PO (07:51)
[2020-01-10] MEDS: Furosemide 20 MG TAB PO (07:51)
[2020-01-10] MEDS: hydroCHLOROthiazide 25 MG TAB PO (07:51)
[2020-01-10] MEDS: amLODIPine 10 MG TAB PO (07:51)
--- NOTE | 2020-01-10 09:17 | PDOC.CMPRO ---
Care Management Progress Note S/O: Will continues to be closely monitored at this time. He was sitting up in his chair when CM met with him. He reported feeling much better and stated his wrist felt better but was still at about 70%. He reported feeling like now that he is on the right medications, he will be on the mend. He reported being in much less pain today. CM continues to follow. A: 59 year old male admitted to [facility] 01/09/20 for Pain, Ambulatory dysfunction P: Will continues to be closely monitored but is making gains toward discharge. PT and OT are recommending SNF, though Will is hesitant to agree as he feels once he is stable on his medications, he will be able to return home. CM will continue to follow and review with Will. He will require follow up appointment with Dr. Earline Loredo at [facility], as well as new patient appointment at [facility]; CM faxed referral and continues to follow.
--- NOTE | 2020-01-10 09:33 | OTTR_ITS ---
Date of service: 01/10/20 Time of Service: 09:15 Occupational Therapy Notes Occupational Therapy Inpatient Treatment Note Date: 01/10/20 PRECAUTIONS: Fall, Standard, Full SUBJECTIVE: Pt was sitting in bed when OT arrived. He was agreeable to OT session and reports that he is ready to get washed up. OBJECTIVE: PAIN: c/o pain in (L) UE and (B) LE BATHING: sitting in bed with max (A) Set up/clean up Upper Body: With use of (R) UE (I) with face, abdomen and upper side of (L) UE, max (A) under (L) arm and under side if (L) UE Lower Body: (I) with (R) UE to (B) knees but denies any further due to pain DRESSING: Sitting in bed Upper Extremity: Min (A) with [facility] gown GROOMING: with max (A) set up/clean up able to brush his teeth with good technique. EATING: Sitting in bed able to bring food to mouth, open and close containers and cut food (I) with use of (R) hand. ASSESSMENT/PLAN: Pt is unable to use his (L) UE per his request. He notes that his pain is limiting in terms of his functional (I) and he is unable to perform his ADLs without being in the seated position. He is not able to hold any AROM of his (L) UE for greater than 30 seconds. He is receptive to education today but is not willing to use his (L) UE at this noting that the pain is too much in his (L) wrist and forearm. OT will work with pt to progress his functional (I). IF his pain continues to be as bothersome, OT does feel that pt would benefit from SNF. TREATMENT CODES/TIME: 45095, 17 minutes (09:15) Keila Horton OTR/[facility]
--- NOTE | 2020-01-10 10:30 | PT.INTREAT ---
Date of service: 01/10/20 Time of Service: 10:30 PT Notes Visit Reasons: PAIN, AMBULATORY DYSFUNCTION Physical Therapy Inpatient Treatment Note Date: 01/10/2020 Precautions: Fall. Standard. Activity as tolerated. Subjective: Will is more cooperative today and is agreeable to wlaking and performing exercises for this session. He states that as his gout is being flushed out of his body, he hopes to move a lot better. He reports that he has not gotten a good night's sleep. Objective: General Observation: IV access in left UE. Index finger, middle finger and ring finger on the left side able to bend and grasp nurse Jorge Luis' hand during forward scoot to edge of bed. Mental Status: Alert and oriented x4 Pain: 5/10 in B knees, L elbow Bed Mobility/Transfers: Supine to sit minimal assist with HOB at 45 degrees Sit to stand minimal assist cues needed for hand placement Stand to sit minimal assist cues needed for hand placement Bed to chair minimal assist cues needed for hand placement Gait: 60 feet using front and walker with full weight bearing and CGA with step-to gait pattern with no increase in pain complaint. [place] increasing. Balance: Static Sitting: Normal Dynamic Sitting: Normal Static standing: Fair Dyanamic standing: Fair Assessment: Will demonstrates significant mobility improvement for this morning's session compared to yesterday requiring only CGA of 1 compared to needing assist of 2 yesterday. His pain level has improved since yesterday allowing improved independence and confidence with ambulation and transfers. His level of cooperation is improving as well. Plan of Care/Treatment Plan: 1-2x/day, 7 days/week x 1 week. Plan of care has been reviewed with the FINANCIAL AID ADMINISTRATOR providing the service under Physical Therapy direction. Initiate Physical Therapy intervention for strengthening, bed mobility, transfers, gait, stairs, balance training, use of assistive device. DISCHARGE RECOMMENDATIONS: Patient will benefit from [facility] facility placement for continued skilled physical therapy services in order to progress mobility level, strength, and balance in preparation for a safe discharge to home. TREATMENT CODE/TIME: 72954 x 16 minutes, 72959 x 15 minutes beginning at 10:30 AM.
[2020-01-10] MEDS: Acetaminophen 325 MG TAB 650 MG PO (11:06)
--- NOTE | 2020-01-10 11:21 | W.NUTRFU ---
Date of service: 01/10/20 Time of Service: 11:21 Nutritional Follow up NOTE: 59 year old male admitted with OA, with HTN, CKD. Following Heart Healthy Diet with excellent intake (>75% of meals), BMI indicates morbid obesity. Not at risk for nutritional decline at this time. Will continue to follow. Time Spent in Nutritional Counseling and Treatment: 0 time spent face to face
--- NOTE | 2020-01-10 12:46 | PGE_ITS ---
Date of Service Date of service: 01/10/20 Time of Service: 12:46 Assessment and Plan Assessment and plan (1) Ambulatory dysfunction: Status: Acute Assessment and plan: Inability to move due to OA/RA, started on prednisone PT/OT consulted. (2) Osteoarthritis: Status: Chronic Assessment and plan: Take plaquinel for RA as above Qualifiers: Osteoarthritis location: multiple joints Osteoarthritis type: unspecified Qualified Code(s): M15.9 - Polyosteoarthritis, unspecified (3) Arthritis, rheumatoid: Status: Chronic Assessment and plan: as above Qualifiers: Rheumatoid arthritis location: multiple sites Rheumatoid factor presence: unspecified presence Qualified Code(s): M06.9 - Rheumatoid arthritis, unspecified (4) Gout: Status: Acute Assessment and plan: started on colchicine with some improvements. Qualifiers: Chronicity: chronic Gout site: multiple sites (5) HTN (hypertension): Status: Chronic Assessment and plan: Monitor bp, will continue home medication above case discussed with Dr. Kahn who is in agreement. Qualifiers: Hypertension type: essential hypertension Qualified Code(s): I10 - Essential (primary) hypertension Subjective Subjective Patient reports: still having pain, tolerating liquids well, tolerating a regular diet and afebrile Interval history since last seen: pain is slowly improving. no fevers, hemodynamically stable, eating and drinking well, voicing no new c/o Exam Const General: ill appearing chronically Nutritional Appearance: obese Orientation: alert, awake and oriented x3 [facility] Head: normocephalic and atraumatic Eyes Pupils: PERRL EOM: EOM intact bilaterally Neck Neck: no JVD Resp Auscultation: clear to auscultation bilaterally Cardio Jugular venous pressure: no JVD Rate: regular rate Rhythm: regular rhythm Heart Sounds: S1 normal and S2 normal GI Inspection: normal to inspection Palpation: soft Auscultation: normal bowel sounds Skin General skin exam: dry skin Lesions: no lesions Rashes: no rashes Neuro General: patient alert, patient awake and patient oriented x3 Psych Speech and Movement: speech and movement normal Mood: congruent mood Objective Objective Clinical Data: Vital Signs Temperature 36.7 C 01/10/20 07:18 Temperature Source Tympanic 01/10/20 07:18 Pulse 95 H 01/10/20 07:18 Pulse Rhythm Regular 01/10/20 07:11 Respiratory Rate 18 01/10/20 07:18 Respiratory Effort Non-Labored 01/10/20 07:11 Respiratory Depth Normal 01/10/20 07:11 Respiratory Pattern Normal 01/10/20 07:11 Blood Pressure 124/81 01/10/20 07:18 Pulse Oximetry 96 01/10/20 07:18 Oxygen Delivery Method Room Air 01/10/20 07:18 Oxygen Flow Rate 0 01/10/20 07:18 Pain Level 4 01/10/20 12:06 Intake & Output 01/09/20 01/10/20 01/10/20 23:59 11:59 23:59 Intake Total 250 / 730 790 / 790 Output Total 600 / 1525 900 / 900 Balance -350 / -795 -110 / -110 Intake: Oral 250 / 730 790 / 790 Output: Urine 600 / 1525 900 / 900 Other: Urine Color Yellow Yellow Urine Appearance Clear Clear Urine Odor Normal Comment Void x1 in the urinal. Voiding Methods Urinal Urinal Laboratory Results WBC 9.80 10^3/uL (4.4-10.8) 01/08/20 13:35 RBC 4.65 10^6/uL (4.36-5.78) 01/08/20 13:35 Hgb 12.8 g/dL (13.5-17.5) L 01/08/20 13:35 Hct 39.9 % (40.0-50.0) L 01/08/20 13:35 MCV 85.8 fL (80-95) 01/08/20 13:35 MCH 27.5 pg (27.0-33.0) 01/08/20 13:35 MCHC 32.1 % (32.0-36.0) 01/08/20 13:35 RDW 13.9 % (11.8-14.1) 01/08/20 13:35 Plt Count 287 10^3/uL (130-400) 01/08/20 13:35 MPV 9.0 fL (8.0-11.0) 01/08/20 13:35 Immature Gran % 0.5 01/08/20 13:35 Neutrophils % 77.1 01/08/20 13:35 Lymphocytes % 10.2 01/08/20 13:35 Monocytes % 11.2 09/07/20 13:35 Eosinophils % 0.7 01/08/20 13:35 Basophils % 0.3 01/08/20 13:35 Nucleated RBC % 0 % 01/08/20 13:35 Absolute Neutrophils 7.55 10^3/uL (1.2-6.7) H 01/08/20 13:35 Absolute Lymphocytes 1.00 10^3/uL (1.2-3.4) L 01/08/20 13:35 Absolute Monocytes 1.10 10^3/uL (0.1-0.8) H 01/08/20 13:35 Absolute Eosinophils 0.07 10^3/uL (0.0-0.7) 01/08/20 13:35 Absolute Basophils 0.03 10^3/uL (0.0-0.2) 01/08/20 13:35 ESR 59 mm/hr (1-20) H 01/08/20 17:20 VBG Lactate 1.0 mmol/L (0.6-1.4) 01/08/20 13:35 Sodium 135 mmol/L (136-145) L 01/08/20 13:35 Potassium 3.7 mmol/L (3.5-5.1) 01/08/20 13:35 Chloride 102 mmol/L (98-107) 01/08/20 13:35 Carbon Dioxide 22.3 mmol/L (21.0-32.0) 01/08/20 13:35 Anion Gap 10.7 mmol/L (3-11) 01/08/20 13:35 BUN 25 mg/dL (7-18) H 01/08/20 13:35 Creatinine 1.78 mg/dL (0.70-1.30) H 01/08/20 13:35 Estimated GFR/1.73 m2 39.05 (mL/min/1.73m2) 01/08/20 13:35 Glucose 91 mg/dL (74-106) 01/08/20 13:35 Uric Acid 9.1 mg/dL (3.5-7.2) H 01/08/20 17:20 Calcium 8.9 mg/dL (8.5-10.1) 01/08/20 13:35 Magnesium 2.0 mg/dL (1.8-2.4) 01/08/20 13:35 Total Bilirubin 0.7 mg/dL (0.2-1.0) 01/08/20 13:35 AST 16 U/L (15-37) 01/08/20 13:35 ALT 24 U/L (16-63) 01/08/20 13:35 Alkaline Phosphatase 62 U/L (46-116) 01/08/20 13:35 Creatine Kinase 88 U/L (39-308) 01/08/20 13:35 Troponin I < 0.05 ng/mL (<0.06) 01/08/20 17:20 C-Reactive Protein 23.48 mg/dL (0.0-0.3) H 01/08/20 17:20 Total Protein 7.6 g/dL (6.4-8.2) 01/08/20 13:35 Albumin 3.2 g/dL (3.4-5.0) L 01/08/20 13:35 Urine Color Yellow (Yellow) 01/08/20 17:15 Urine Clarity Clear (Clear) 01/08/20 17:15 Urine pH 5.5 (5-8) 01/08/20 17:15 Ur Specific [place] >= 1.030 (1.005-1.025) H 01/08/20 17:15 Urine Protein 100 mg/dL (Negative) H 01/08/20 17:15 Urine Ketones Negative mg/dL (Negative) 01/08/20 17:15 Urine Blood Moderate (Negative) H 01/08/20 17:15 Urine Nitrite Negative (Negative) 01/08/20 17:15 Urine Bilirubin Negative (Negative) 01/08/20 17:15 Urine Urobilinogen 0.2 EU/dL (Up TO 0.2) 01/08/20 17:15 Ur Leukocyte Esterase Negative (Negative) 01/08/20 17:15 Urine RBC 5-10 HPF (0-2) H 01/08/20 17:15 Urine WBC Negative HPF (0-5) 01/08/20 17:15 Ur Epithelial Cells Negative HPF (Negative) 01/08/20 17:15 Urine Crystals Negative HPF (Negative) 01/08/20 17:15 Urine Bacteria Few HPF (Negative) 01/08/20 17:15 Urine Casts Negative LPF (Negative) 01/08/20 17:15 Urine Mucus Trace (Negative) 01/08/20 17:15 Urine Other Negative (Negative) 01/08/20 17:15 Ur Culture Indicated? No 01/08/20 17:15 Urine Glucose Negative mg/dL (Negative) 01/08/20 17:15 COVID-19 PCR Cancelled 01/08/20 17:01 Nasopharyn COVID-19 PCR Cancelled 01/08/20 17:01 Ref Test Perform Site Cancelled 01/08/20 17:01
--- NOTE | 2020-01-10 14:46 | PHA.REVIEW ---
Pharmacy Admission Review - Admission Clinical Review (Last Updated 01/08/20 @ 16:49 by Nuha Almazan NP) Gout (Acute) Ambulatory dysfunction (Acute) No Known Allergies Allergy (Unverified 01/08/20 12:56) Height 5 ft 10.08 in Weight 136.078 kg - Renal Dosing Renal Dosing: BUN 25 mg/dL (7-18) H 01/08/20 13:35 Creatinine 1.78 mg/dL (0.70-1.30) H 01/08/20 13:35 Medications needing adjustments: Reviewed (Lisinopril held due to increased SCr - no labs since 01/07 to reevaluate) - Anticoagulation Anticoagulation: Hgb 12.8 g/dL (13.5-17.5) L 01/08/20 13:35 Hct 39.9 % (40.0-50.0) L 01/08/20 13:35 Plt Count 287 10^3/uL (130-400) 01/08/20 13:35 Creatinine 1.78 mg/dL (0.70-1.30) H 01/08/20 13:35 DVT Prohphylaxis: Reviewed Medications: Enoxaparin Therapeutic Anticoagulation: N/A - Opiate Usage Evaluate Pain Scale/Pains Meds: Reviewed (only trsmsfol) Scheduled Bowel Reg ordered if on Opiates?: Yes (prn orders) - Relevant Labs ESR 59 mm/hr (1-20) H 01/08/20 17:20 Sodium 135 mmol/L (136-145) L 01/08/20 13:35 Potassium 3.7 mmol/L (3.5-5.1) 01/08/20 13:35 Chloride 102 mmol/L (98-107) 01/08/20 13:35 Magnesium 2.0 mg/dL (1.8-2.4) 01/08/20 13:35 C-Reactive Protein 23.48 mg/dL (0.0-0.3) H 01/08/20 17:20 Electrolytes, C-Reactive P, ESR: Reviewed - DM Control DM Control: Glucose 91 mg/dL (74-106) 01/08/20 13:35 Insulin Dosing: Reviewed - Heart Failure/OH Heart Failure/OH: Troponin I < 0.05 ng/mL (<0.06) 01/08/20 17:20 EF%, YADY's, B-Blockers, Diuretics: Reviewed - BP Control BP Control: Blood Pressure 124/81 Blood Pressure 133/78 If elevated: Reviewed - IV to PO Switch IV Medications: Reviewed - Home Meds Home Med List reviewed: Reviewed Relevent Home Meds Not ordered & why?: Lisinopril, metoprolol; furosemide and allopurinol are on home med list and ordered but cannot confirm pt is still taking via external med hx -- per CM continuity of care has been difficult since pt's PCP retired - Current meds Current Medication Order Review: Reviewed
--- NOTE | 2020-01-10 16:01 | PT.INTREAT ---
Date of service: 01/10/20 Time of Service: 16:01 PT Notes Visit Reasons: PAIN, AMBULATORY DYSFUNCTION Physical Therapy Inpatient Treatment Note Date: 01/10/2020 (AFTERNOON session) Precautions: Fall. Standard. Activity as tolerated. Subjective: Much more agreeable to working with PT this afternoon. Reports continued decrease in pain level and is happy that MD has figured out medication dosaging for his gout and osteoaarthritis. Objective: General Observation: IV access in left UE. Mental Status: Alert and oriented x4 Pain: 3-4/10 in B knees, L elbow Bed Mobility/Transfers: Sit to stand from reclining chair minimal assist cues needed for hand placement Stand to sit onot recliner chair minimal assist cues needed for hand placement Gait: 70 feet using front and walker with full weight bearing and CGA with step-to gait pattern with no increase in pain complaint. [place] increasing. Verbal cues needed for walker management as he tends to lag behind his walker. Balance: Static Sitting: Normal Dynamic Sitting: Normal Static standing: Fair Dyanamic standing: Fair Assessment: Will demonstrates significant mobility improvement for this afternoon's session compared to yesterday requiring only CGA of 1 compared to needing assist of 2 yesterday. His pain level has improved since yesterday allowing improved independence and confidence with ambulation and transfers. His level of cooperation is improving as well. Plan of Care/Treatment Plan: 1-2x/day, 7 days/week x 1 week. Plan of care has been reviewed with the GROUP EXERCISE INSTRUCTOR providing the service under Physical Therapy direction. Initiate Physical Therapy intervention for strengthening, bed mobility, transfers, gait, stairs, balance training, use of assistive device. DISCHARGE RECOMMENDATIONS: Patient will benefit from retirement facility placement for continued skilled physical therapy services in order to progress mobility level, strength, and balance in preparation for a safe discharge to home. TREATMENT CODE/TIME: 98117 x 24 minutes beginning at 16:01 PM.
[2020-01-10 16:15] VITALS: BP 117/79; PULSE 101; RESP 18; TEMP 36.6; O2SAT 98
[2020-01-10] MEDS: Enoxaparin 40 MG/0.4 ML SYR SC (19:49)
[2020-01-11 00:26] VITALS: BP 124/86; PULSE 101; RESP 18; TEMP 36.3; O2SAT 98
[2020-01-11 07:17] LABS: Anion Gap 12.6 mmol/L (3-11); BUN 35 mg/dL (7-18); CO2 23.4 mmol/L (21.0-32.0); CREATININE 1.82 mg/dL (0.70-1.30); Calcium 8.6 mg/dL (8.5-10.1); Chloride 98 mmol/L (98-107); Estimated GFR 38.06 (mL/min/1.73m2); Glucose 105 mg/dL (74-106); Potassium 3.8 mmol/L (3.5-5.1); Sodium 134 mmol/L (136-145)
[2020-01-11 07:21] LABS: Abs Immature Grans 0.09 10^3/uL (0.0-0.06); Absolute Basophil Count 0.01 10^3/uL (0.0-0.2); Absolute Lymphocyte Count 1.46 10^3/uL (1.2-3.4); Absolute Monocyte Count 1.14 10^3/uL (0.1-0.8); Basophils % 0.1; HGB 12.5 g/dL (13.5-17.5); Immature Grans % 0.7; Lymphocytes % 10.9; MCH 27.4 pg (27.0-33.0); MCHC 32.9 % (32.0-36.0); MCV 83.2 fL (80-95); MPV 9.7 fL (8.0-11.0); Monocytes % 8.5; Neutrophils % 79.8; Nucleated RBC 0 %; Platelet Count 376 10^3/uL (130-400); RBC 4.57 10^6/uL (4.36-5.78); RDW 13.7 % (11.8-14.1); RDW-SD 41.8 fL; WBC 13.43 10^3/uL (4.4-10.8)
[2020-01-11 07:25] LABS: Absolute Neutrophil Count 10.72 10^3/uL (1.2-6.7)
--- NOTE | 2020-01-11 07:28 | OT.INTREAT ---
Date of service: 01/11/20 Time of Service: 07:05 Occupational Therapy Notes Occupational Therapy Inpatient Treatment Note Date: 01/11/20 PRECAUTIONS: Fall, Standard, Full SUBJECTIVE: Pt was sitting on the side of the bed when OT arrived. He was agreeable to OT session and reports that he is feeling better and anxious to return home. OBJECTIVE: PAIN:no c/o pain BATHING: Sitting on side of the bed with max (A) set up/clean up Upper Body: (I) face, (B) UE, abdomen and underarms, min (A) hair Lower Body: (I) jasmyne area, (B) LE to ankles DRESSING: Sitting on side of the bed Upper Extremity: (I) [facility] gown Lower Extremity: (I) able to don and doff (B) socks GROOMING: Sitting on side of the bed (I) with brushing teeth with max (A) clean up ASSESSMENT/PLAN: Pt was able to perform his dressing and bathing (I) with no c/o pain or discomfort in his (B) UE. He refused standing ADLs as he reports that he just wants to return home and not use too much of his energy. OT did not have to provide vc or (A) to pt besides set up/clean up at this time. OT does feel that pts pain is getting better and this is overall increasing his functional activity tolerance. TREATMENT CODES/TIME: 50401y9, 25 minutes (07:05) Keila Horton OTR/[facility]
[2020-01-11 07:32] VITALS: BP 150/93; PULSE 104; RESP 16; TEMP 36.8; O2SAT 95
[2020-01-11] MEDS: Hydroxychloroquine 200 MG TAB PO (07:54)
[2020-01-11] MEDS: Acetaminophen 325 MG TAB 650 MG PO (07:54)
[2020-01-11] MEDS: Allopurinol 300 MG TAB PO (07:55)
[2020-01-11] MEDS: Omeprazole 20 MG CAPCR PO (07:55)
[2020-01-11] MEDS: hydroCHLOROthiazide 25 MG TAB PO (07:55)
[2020-01-11] MEDS: Colchicine 0.6 MG TAB PO (07:55)
[2020-01-11] MEDS: amLODIPine 10 MG TAB PO (07:55)
[2020-01-11] MEDS: predniSONE 20 MG TAB 60 MG PO (07:56)
[2020-01-11] MEDS: Furosemide 20 MG TAB PO (07:56)
[2020-01-11] MEDS: Normal Saline Flush 10 ML SYR IVP (07:56)
--- NOTE | 2020-01-11 09:58 | PT.INTREAT ---
Date of service: 01/11/20 Time of Service: 09:58 PT Notes Visit Reasons: PAIN, AMBULATORY DYSFUNCTION Inpatient Physical Therapy Treatment Note [facility] Date: 01/11/2020 PRECAUTIONS:Fall SUBJECTIVE: Will is agreeable to participating in PT this morning, although he does indicate that he has been extremely busy already this morning. OBJECTIVE: Issued and measured FWW for patient for at home and personal use. PAIN: No c/o pain BED MOBILITY/TRANSFERS Sit-stand: Min A from recliner surface Stand-sit: SBA GAIT Assistive Device: FWW Weight bearing: Full Assist: CGA Distance: 80' Deviation: Cueing for FWW mechanics for safety THEREX: Patient completed a LE strengthening program, in a seated position, as per flow sheet. He requires verbal and visual cueing for proper exercise performance. ASSESSMENT: Patient tolerated session well, without complaint. He was able to tolerate a slight progression in gait distance with FWW support, CGA, and wheelchair follow. Patient would benefit from continued global strengthening including gait and transfer training for improved mobility and ability to perform daily functional tasks. PLAN: Continue with global strengthening, gait and transfer training, and addition of stair training. TREATMENT CODE/TIME: 25 minutes; 94220, [id number]
--- NOTE | 2020-01-11 10:38 | W.PM.DS.N ---
Date of service: 01/11/20 Time of Service: 10:38 DS: Diagnosis Discharge Diagnosis (1) Ambulatory dysfunction: Status: Acute (2) Osteoarthritis: Status: Chronic (3) Arthritis, rheumatoid: Status: Chronic (4) Gout: Status: Acute (5) HTN (hypertension): Status: Chronic Discharge Plan Disposition Patient Disposition: HOME Condition: Improving Discharge Details Reason For Visit: PAIN, AMBULATORY DYSFUNCTION Admit Date/Time: 01/09/20 09:14 Admit Provider: Sarmad Kahn Attending Provider: Sarmad Kahn Primary Care Provider: Viridiana Torres Hospital Course Hospital Course: This is a 59 y.o male with past medical history of HTN, CKD, RA/OA presents to the ED with inability to ambulate over the weekend due to worsening joint pain. His work up was suggestive of his untreated RA and he was started on prednisone in addition to plaquinel. His symptoms were very slow to respond and gouty flare was also a concern so he was started on colchicine. His symptoms finally started improving. He was working with PT/OT and slowly improved to safely be discharged. he declined home health services. Case management following and he will be followed up outpatient at [facility], he will be referred to [place] [facility] On admission his lisinopril was placed on hold due to his elevated creatinine. This has stabilized and his creatinine on discharge is 1.8. He will be resumed on lisinopril 20 mg daily which is half his previous dose. Due to his gouty flare his hydrochlorothiazide will be placed on hold. He has been provided prescriptions for all of his medication a 30-day supply. He will also be tapered on prednisone 50 mg daily for 3 days 40 mg daily for 3 days 30 mg daily etc. he was advised to continue colchicine for 2 to 3 days beyond resolution of his gouty flare. discharge plan discussed with Dr Kahn who is in agreement Home Meds and New Rx's Prescriptions: New colchicine [Colcrys] 0.6 mg Tablet 0.6 mg PO DAILY Qty: 14 RF: 0 prednisone 10 mg tablet 50 mg PO DAILY Qty: 50 RF: 0 Continued amlodipine 10 mg Tablet 10 mg PO DAILY Qty: 30 RF: 0 allopurinol 300 mg Tablet 300 mg PO DAILY Qty: 30 RF: 0 furosemide 20 mg Tablet 20 mg PO DAILY Qty: 30 RF: 0 hydroxychloroquine 200 mg tablet 200 mg PO BID Qty: 30 RF: 0 metoprolol tartrate 25 mg Tablet 25 mg PO BID Qty: 60 RF: 0 Changed lisinopril 40 mg tablet 20 mg PO DAILY Qty: 30 RF: 0 Discontinued hydrochlorothiazide 25 mg Tablet 25 mg PO DAILY RF: 0 Discharge Instructions Instructions: Gout (DC), Rheumatoid Arthritis (DC) Additional Instructions: Continue colchicine and stop 2 to 3 days after flare resolves. You can increase dose to 0.6 mg twice daily if needed. You will taper steroids starting tomorrow morning with prednisone 50 mg daily for 3 days then 40 mg daily for 3 days then 30 mg daily for 3 days then 20 mg daily for 3 days then 10 mg daily for 3 days then defer to primary care provider or rheumatology. Make sure you take this with food and morning is best. Stand Alone Forms: Nursing Discharge Form Referrals: Nuha Mcmillan FURNACE CHARGER [NURSE PRACTITIONER] - 02/12/20 11:15 am (New Patient appointment) Activity:: Activity as Tolerated Equipment/Supplies:: No Equipment Needed Diet:: As Tolerated Discharge Orders Discharge Orders: Discharge Order (Routine); Ordered 01/11/20 Ordered By: Liliana Del Castillo DS: Summary Status at Discharge Functional status at discharge: uses cane/walker Overall status at discharge: patient is progressing back to baseline Mental Status: mental status grossly normal Speech and Movement: speech and movement normal Mood: congruent mood Affect: normal affect Exam Const General: ill appearing chronically Nutritional Appearance: obese Orientation: alert, awake and oriented x3 HENMT Head: normocephalic and atraumatic Eyes Pupils: PERRL EOM: EOM intact bilaterally Neck Neck: no JVD Resp Auscultation: clear to auscultation bilaterally Cardio Jugular venous pressure: no JVD Rate: regular rate Rhythm: regular rhythm Heart Sounds: S1 normal and S2 normal GI Inspection: normal to inspection Palpation: soft Auscultation: normal bowel sounds Skin General skin exam: dry skin Lesions: no lesions Rashes: no rashes Neuro General: patient alert, patient awake and patient oriented x3 Psych Mental Status: mental status grossly normal Speech and Movement: speech and movement normal Mood: congruent mood Affect: normal affect DS: Data Vitals/I&O Vitals and I&O: Vital Signs Temperature 36.8 C 01/11/20 07:32 Temperature Source Tympanic 01/11/20 07:32 Pulse 104 H 01/11/20 07:32 Pulse Rhythm Regular 01/11/20 08:37 Respiratory Rate 16 01/11/20 07:32 Respiratory Effort 01/11/20 08:37 Respiratory Depth Normal 01/11/20 08:37 Respiratory Pattern Normal 01/11/20 08:37 Blood Pressure 150/93 H 01/11/20 07:32 Pulse Oximetry 95 01/11/20 07:32 Oxygen Delivery Method Room Air 01/11/20 07:32 Oxygen Flow Rate 0 01/11/20 07:32 Pain Level 2 01/11/20 07:54 Intake & Output 01/10/20 01/10/20 01/11/20 11:59 23:59 11:59 Intake Total 790 / 1470 680 / 1470 680 / 680 Output Total 900 / 1650 750 / 1650 480 / 480 Balance -110 / -180 -70 / -180 200 / 200 Intake: IV Oral 790 / 1470 680 / 1470 670 / 670 Output: Urine 900 / 1650 750 / 1650 480 / 480 Other: Urine Color Yellow Yellow Yellow Urine Appearance Clear Clear Clear Urine Odor Normal Normal None Comment Void x1 in the urinal. Void x1 in the toilet. Stool Size Large Stool Characteristics Soft Formed Brown Voiding Methods Urinal Urinal Urinal Data Completed and Pending Labs on day of discharge: Labs from last 24 hours 01/11/20 01/11/20 06:20 05:35 WBC 13.43 H RBC 4.57 Hgb 12.5 L Hct 38.0 L MCV 83.2 MCH 27.4 MCHC 32.9 RDW 13.7 Plt Count 376 MPV 9.7 Immature Gran % 0.7 Neutrophils % 79.8 Lymphocytes % 10.9 Monocytes % 8.5 Eosinophils % 0.0 Basophils % 0.1 Nucleated RBC % 0 Absolute Neutrophils 10.72 H Absolute Lymphocytes 1.46 Absolute Monocytes 1.14 H Absolute Eosinophils 0.00 Absolute Basophils 0.01 Sodium 134 L Potassium 3.8 Chloride 98 Carbon Dioxide 23.4 Anion Gap 12.6 H BUN 35 H D Creatinine 1.82 H Estimated GFR/1.73 m2 38.06 Glucose 105 Calcium 8.6 Preliminary micro results at discharge 01/08/20 19:08 Blood Culture - Preliminary Blood NO GROWTH 48 HOURS 01/08/20 18:55 Blood Culture - Preliminary Blood NO GROWTH 48 HOURS PFSH Medical History (Updated 01/08/20 @ 16:50 by Nuha Almazan NP) Cough Gout HTN (hypertension) Social History Smoking/Tobacco Use Status: Former Tobacco Use Alcohol Intake: former Drug use: Never Substance use type: does not use Do you feel safe at home: Yes Do you feel safe in your relationship?: Yes
--- NOTE | 2020-01-11 10:39 | PDOC.CMPRO ---
- If Service Date Differs Date of service: 01/11/20 Time of Service: 10:39
[2020-01-11 11:00] VITALS: BP 114/77; PULSE 102; RESP 14; TEMP 36.5; O2SAT 96
[2020-01-11] MEDS: Metoprolol 25 MG TAB PO (11:11)
[2020-01-11] MEDS: Lisinopril 20 MG TAB PO (11:11)
--- NOTE | 2020-01-11 15:21 | PDOC.CMDIS ---
- If Service Date Differs Date of service: 01/11/20 Time of Service: 15:21 LACE Index Scoring Tool - Questions: Length of Stay (in days): 2 Acuity (Admit via E.D.?): Yes Comorbidities: Liver or Renal Disease E.D. Visits: 2 - Answers: Total Score: 12 Risk of Readmission: High Risk Care Management Discharge Reason for Hospitalization: Pain, Ambulatory dysfunction Discharge Plan: Will will be discharged home with no new services. He declined HH or outpatient PT services. He will follow up with his providers and dischage plan of care. Will will transport via [facility] coordinated by CM. Patient/Family Education Needs: Discharge plan, limitations, follow up, Ask Me Three.
--- NOTE | 2020-01-12 08:19 | INDS_ITS ---
Date of service: 01/12/20 Time of Service: 08:19 PT Notes Visit Reasons: PAIN, AMBULATORY DYSFUNCTION Inpatient Physical Therapy Discharge Summary Dates: 01/12/2020 Dates of Service: 01/09/2020 through 01/11/2020 This is a clinical summary of care provided on the duration of dates listed above. No charge was made in the completion of this documentation. Referring Doctor: Nuha Almazan NP PT Orders: PT CONSULT: Eval/treat. Precautions: Fall. Standard. Activity as tolerated. Patient Profile/Admitting Diagnosis: Will is a 59-year-old male who presented to the ED on 01/08/2020 with complaints of generalized pain and inability to walk. Patient is diagnosed with osteoarthritis, ambulatory dysfunction, gout, and hypertension with a referral for physical therapy for mobility progression and safety assessment. PMHX: Medical History Cough (Inactive) Gout (Inactive) HTN (hypertension) (Chronic) Social History/Home Situation: Lives with girlfriend in a private home with 10- 12 steps to enter with a rail on the right going up. Independent with household distances only using the single-point cane. 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 Equipment Owned/DME: Single-point cane Subjective: NT. See most recent [facility] notes. Objective: General Observation: NT. See most recent [facility] notes. Mental Status: NT. See most recent [facility] notes. Pain: NT. See most recent [facility] notes. T ROM: Right Upper Extremity: Shoulder Flexion WFL. Shoulder abduction WFL. Elbow flexion WFL. Wrist flexion WFL. Opening and closing of hand WFL. Left Upper Extremity: Shoulder Flexion allows only up to 10 degrees of shoulder flexion due to pain. Shoulder abduction allows up to about 10 degrees due to pain. Elbow flexion unable to move due to pain, about 45 degrees of flexion. Wrist flexion unable due to pain. Unable to open and close hand due to pain. Right Lower Extremity: Hip flexion allows up to 90 degrees in supine. Hip abduction allows up to 10 degrees. Knee flexion up to 80 degrees. Ankle dorsiflexion unable due to pain. Ankle plantarflexion unable due to pain. Left Lower Extremity: Hip flexion unable due to pain. Hip abduction unable due to pain. Knee flexion unable due to pain. Ankle dorsiflexion unable due to pain. Ankle plantarflexion unable due to pain. Strength: Right Upper Extremity: Shoulder flexors 4-/5. Shoulder abductors 4-/5. Elbow flexors 4-/5. Elbow extensors 4-/5. Garbage Collection Supervisor strong. Left Upper Extremity: Shoulder flexors 3-/5. Shoulder abductors 3-/5. Elbow flexors 3-/5. Elbow extensors 3-/5. Garbage Collection Supervisor unable due to pain. Right Lower Extremity: Hip flexors 3--/5. Hip abductors 3-/5. Knee flexors 3-/5. Knee extensors 3-/5. Ankle dorsiflexors unable to test due to pain. Ankle plantarflexors unable to test due to pain. Left Lower Extremity: Unable due to pain. Sensation: Intact as to pain and pressure on bilateral lower extremities. Bed Mobility/Transfers: Supine to sit contact-guard assist Sit to stand minimal assist Stand to sit standby assist Bed to chair minimal assist Chair to bed minimal assist Gait: 80 feet using a front wheeled walker with full weight bearing and contact- guard assist with minimal cueing provided for walker management. Balance: Sitting static: Normal Sitting dynamic: Normal Standing static: Fair Standing dynamic: Fair Assessment: Will demonstrates improving mobility level as a result of this episode of care. Pre-medication for pain will be needed to encourage gradual return to mobility ADL task completion. Will is a 59-year-old male who presented to the ED on 01/08/2020 with complaints of generalized pain and inability to walk. Patient is diagnosed with osteoarthritis, ambulatory dysfunction, gout, and hypertension with a referral for physical therapy for mobility progression and safety assessment. Patient continues to present with clinical signs and symptoms consistent with current/admitting diagnoses that have resulted to mobility limitations, gait instability, generalized weakness, and impairment of motor control as demonstrated by the following impairment level findings: 1. Decreased strength to B UE/LE major muscle groups 2. Impaired standing balance 3. Impaired activity tolerance 4. Limitation of joint range of motion in B UE/LE Impairments are continue to contribute to the following functional limitations: 1. Increased dependence with transfers 2. Inability to safely ambulate without assistive device and physical assistance 3. Increase completion time for mobility ADL performance 4. Increased fall risk 5. Inability to negotiate steps alone safely Goals: Goals X1 week 1. Supine-Sit standby assist MET 2. Sit-Supine standby assist MET 3. Sit-Stand standby assist NOT MET 4. Stand-Sit standby assist MET 5. Bed-Chair standby assist NOT MET 6. Chair-Bedstandby assist NOT MET 7. Contact-guard assist for gait on level surface with use of least restrictive device for at least 300 feet without report of pain nor dyspnea MET 8. Contact-guard assist for stair negotiation while holding onto bilateral rails for at least 10 steps without report of pain nor dyspnea NOT MET 9. Independent with home exercise program NOT MET 10. Good static and dynamic standing balance/tolerance NOT MET DISCHARGE RECOMMENDATIONS: Patient will benefit from [facility] facility placement for continued skilled physical therapy services in order to progress mobility level, strength, and balance in preparation for a safe discharge to home. TREATMENT CODE/TIME: ME Thank you for the opportunity to participate in the care of this patient. Mari Llamas PT, DPT, CLT [facility] [place], [place]
--- NOTE | 2020-01-15 07:13 | OT.INDS ---
Date of service: 01/15/20 Time of Service: 07:13 Occupational Therapy Notes Occupational Therapy Inpatient Discharge Summary Date: 01/15/20 Dates of Service: 01/09/20-01/12/20 Referring Doctor:Nuha Almazan NP OT Orders: Non-Urgent Precautions: Fall, Standard, Full This document serves as a summary of care, no skilled OT services were provided for this documentation PATIENT PROFILE/ADMITTING DIAGNOSIS: Pt presented to the ED on 01/08/20 with c/o pain in his (B) LE. He was admitted to Med Surg with Gout, OA, RA, and HTN. Past Medical History- Medical History Cough (Inactive) Gout (Inactive) HTN (hypertension) (Chronic) Social History/Home Situation: Pt states that he lives in an apartment with his girlfriend. He reports that he has stairs to enter and that he has a walk in shower but denies discussing his baseline level of function reporting that he is (I) when he is not in pain. He can drive but is not currently as he is in between cars and he notes that he has no issues when the pain is not present. Pt reports that he utilizes a cane at times for functional mobility. Equipment owned/DME: Cane SUBJECTIVE: NT OBJECTIVE: ROM: RUE Pt denies only slight shoulder flexion L UE AROM WFL STRENGTH: RUE pt has weak sample maker original strength LUE 4/5 throughout globally SENSATION: Intact (B) UE FUNCTIONAL MOBILITY/ADLS: BATHING: Sitting on side of the bed with max (A) set up/clean up Upper Body: (I) face, (B) UE, abdomen and underarms, min (A) hair Lower Body: (I) jasmyne area, (B) LE to ankles DRESSING: Sitting on side of the bed Upper Extremity: (I) don and doffing hospital gown Lower Extremity: (I) able to don and doff (B) socks GROOMING: Sitting on side of the bed (I) with brushing teeth with max (A) clean up BALANCE: Static sitting Normal Dynamic Sitting Good ASSESSMENT: Patient is a 59-year-old male referred to occupational therapy services with diagnosis of Gout, OA, RA, HTN. Pt was seen for 3 skilled OT sessions. He was not agreeable to use of his (B) UE until his last session. He was limited due to pain in his (L) UE and (B) LE. He was not receptive to education at the first 2 sessions but in his last session made significant improvements in his functional activity tolerance. OT does feel that this was due to pts pain tolerance and level. GOALS 1. Transfers (I) from supine to sit and from bed-chair -met 2. Dressing (I) with don and doffing (B) socks, (I) don and doffing shirt -met 3. Bathing at sink (I) UE and seated in chair (I) (B) LE- pt denied at all attempts 4. Toileting on toilet (I)- NT 5. Eating (I)- met PLAN OF CARE/TREATMENT PLAN: Pt denied services as well as Outpatient care and was discharged home and medically cleared per MD on 01/12/20 DISCHARGE RECOMMENDATIONS Pt is limited in his ADL/IADL routines due to pain. OT does feel that pt could return home when medically cleared per MD once pain is better managed. TREATMENT TIME/MINUTES/CODES N/A Keila Horton OTR/L [facility]
== END 2020-01-11 13:11 | disposition home or self-care (01) | DRG 556 ==
LOC: ER 16:04 → MS 17:01
PROVIDERS: Nurse Practitioner Acute Care; Nurse Practitioner Family; Admitting Provider Family Medicine; Emergency Provider Student in an Organized Health Care Education/Training Program; PCP Nurse Practitioner Family; Visit Provider Family Medicine
DX: R26.2 Difficulty in walking, not elsewhere classified (principal); Z68.41 Body mass index [BMI] 40.0-44.9, adult; M15.9 Polyosteoarthritis, unspecified; M06.9 Rheumatoid arthritis, unspecified; M1A.9XX0 Chronic gout, unspecified, without tophus (tophi); I12.9 Hypertensive chronic kidney disease with stage 1 through stage 4 chronic kidney disease, or unspecified chronic kidney disease; N18.9 Chronic kidney disease, unspecified; E66.9 Obesity, unspecified
CPT/HCPCS: 36410; 36415; 80048; 80053; 82550; 85652; 87040; 93005; 97110; 97162; 97166; 97530; 97535; 99223; 99233; 99239; 99285; J1650; U0003; 71045; 81003; 81015; 83605; 83735; 84484; 84550; 85025; 86140; 93010; 99284; G0378; J7512

== ENCOUNTER 2020-05-16 12:25 | Outpatient (REF) | payer MEDICAID, SELFPAY ==
[2020-05-16 13:56] LABS: ALT 32 U/L (16-63); AST 21 U/L (15-37); Albumin 3.7 g/dL (3.4-5.0); Alkaline Phosphatase 63 U/L (46-116); Anion Gap 10.7 mmol/L (3-11); BUN 19 mg/dL (7-18); Bilirubin, Total 0.3 mg/dL (0.2-1.0); CO2 25.3 mmol/L (21.0-32.0); CREATININE 1.52 mg/dL (0.70-1.30); Calcium 8.3 mg/dL (8.5-10.1); Calculated LDL 127 mg/dL (<100); Chloride 103 mmol/L (98-107); Cholesterol 173 mg/dL (<200); Estimated GFR 46.86 (mL/min/1.73m2); Glucose 93 mg/dL (74-106); HDL Cholesterol 36 mg/dL (40-60); Potassium 4.1 mmol/L (3.5-5.1); Sodium 139 mmol/L (136-145); Triglyceride 54 mg/dL (<150)
[2020-05-16 14:09] LABS: Uric Acid 4.5 mg/dL (3.5-7.2)
== END 2020-05-16 12:45 ==
LOC: NCHCN 12:25
PROVIDERS: PCP Nurse Practitioner Family; Visit Provider Family Medicine
DX: I10 Essential (primary) hypertension (principal); E66.3 Overweight; M06.9 Rheumatoid arthritis, unspecified
CPT/HCPCS: 80053; 80061; 84550

== ENCOUNTER 2021-05-29 08:44 | Outpatient (REF) | payer MEDICARE, MEDICAID, SELFPAY ==
[2021-05-29 16:12] LABS: ALT 19 U/L (16-63); AST 16 U/L (15-37); Albumin 3.8 g/dL (3.4-5.0); Alkaline Phosphatase 80 U/L (46-116); Anion Gap 13.3 mmol/L (3-11); BUN 14 mg/dL (7-18); Bilirubin, Total 0.4 mg/dL (0.2-1.0); CO2 23.7 mmol/L (21.0-32.0); CREATININE 1.4 mg/dL (0.70-1.30); Calcium 8.7 mg/dL (8.5-10.1); Calculated LDL 125 mg/dL (<100); Chloride 103 mmol/L (98-107); Cholesterol 176 mg/dL (<200); Estimated GFR 51.35 (mL/min/1.73m2); Glucose 91 mg/dL (74-106); HDL Cholesterol 32 mg/dL (40-60); Potassium 3.7 mmol/L (3.5-5.1); Sodium 140 mmol/L (136-145); Total Protein 7.2 g/dL (6.4-8.2); Triglyceride 98 mg/dL (<150)
== END 2021-05-29 08:45 | disposition home or self-care (01) ==
LOC: NCHCN 08:44
PROVIDERS: PCP Nurse Practitioner Family; Visit Provider Family Medicine
DX: I10 Essential (primary) hypertension (principal); E66.3 Overweight; Z79.899 Other long term (current) drug therapy
CPT/HCPCS: 80053; 80061

== ENCOUNTER 2022-06-24 13:00 | Inpatient (IN) | payer MEDICARE, MEDICAID, SELFPAY ==
[2022-06-24] VITALS (38 sets, daily range): BP systolic 121–167; BP diastolic 91–111; PULSE 71–115; RESP 11–33; TEMP 36.7–37.1; O2SAT 95–100
--- NOTE | 2022-06-24 13:00 | DI.RAD_ITS ---
Exam(s) XR PORTABLE CHEST AP EXAM: XR PORTABLE CHEST AP CLINICAL HISTORY: vtach s/p cardioversion TECHNIQUE: 2D digital imaging was performed of the chest. Two images were obtained. AP views were obtained. COMPARISON: CR,XR XR PORTABLE CHEST AP from 01/08/2020 FINDINGS: There is poor inspiration. Monitoring equipment is seen overlying the left hemithorax. MEDIASTINUM: Normal. HEART: Normal. PULMONARY VASCULATURE: Normal. LUNGS: Clear. PLEURAL SPACE: No pleural effusion or pneumothorax. BONE:Within normal limits for the patient's age. OTHER FINDINGS:Normal. IMPRESSION: No acute pulmonary findings. DATA REPOSITORY: RADIATION DOSE DELIVERED:
--- NOTE | 2022-06-24 13:00 | RT.EKG_ITS ---
APPROVED REPORT Exam: Resting ECG Reason for Exam: [facility] Patient Location: E HR:105 bpm ECG Measurements Heart Rate 105 AXIS MS 148 P 33 QRSd 111 QRS -42 QT 375 T 120 QTc 496 Conclusion Sinus tachycardia...rate> 99 LAD, consider left anterior fascicular block...axis(240,-40), S>R II III aVF Posterior infarct, old...prom R T, V1-V3 or Q >40mS, V7-V9 Abnormal T, consider ischemia, lateral leads...T <-0.20mV, I aVL V5 V6 st dep I, aVL
--- NOTE | 2022-06-24 13:14 | ED.GENADUL_ITS ---
Discharge Plan Disposition Patient Disposition: Admit to [facility] Condition: Serious Discharge Details Clinical Impression: Ventricular tachycardia Primary Care Provider: Viridiana Torres ED Provider: Shakeel Locke Home Meds and New Rx's Prescriptions: Continued amlodipine 10 mg Tablet 10 mg PO DAILY Qty: 30 0RF allopurinol 300 mg Tablet 300 mg PO DAILY Qty: 30 0RF furosemide 20 mg Tablet 20 mg PO DAILY Qty: 30 0RF hydroxychloroquine 200 mg tablet 200 mg PO BID Qty: 30 0RF lisinopril 40 mg tablet 20 mg PO DAILY Qty: 30 0RF Patient Comments: take 1 tablet by mouth once daily metoprolol tartrate 25 mg Tablet 25 mg PO BID Qty: 60 0RF cyclobenzaprine 10 mg tablet 10 mg PO 1XD Patient Comments: TAKE ONE TABLET BY MOUTH THREE TIMES A DAY NEEDED Medical Decision Making 1315 --61-year-old male with history of hypertension, osteoarthritis, ambulatory dysfunction, here after episode of monomorphic ventricular tachycardia and hypotension requiring cardioversion in the field. Patient is now hemodynamically stable and mentating well. Unclear etiology for ventricular tachycardia. Consider ACS. EKG was reviewed and interpreted by me: Sinus tachycardia 105 bpm no STEMI, ST depressions noted lead I and aVL Consider electrolyte abnormalities. Patient also seems to have some facial spasm is intermittent. Consider seizure disorder lives not been previously diagnosed versus other neurologic disease. -- Labs reviewed: Creatinine is elevated at 1.7. Free T4 mildly elevated. D- dimer negative. Troponin negative. CT of the head was interpreted by radiology: Negative for acute process. Patient is remained stable on residential monitor. Heart rate improved to 70s and blood pressure stable. Plan to admit to hospitalist service. I called and spoke with Dr. Kahn, discussed ED presentation and course, he will admit the patient. Care transition at time of admission. Lab Data Lab results reviewed: Yes I reviewed the patient's lab results. Labs: Laboratory Tests Range/Units 06/24/22 06/24/22 06/24/22 13:05 13:05 13:21 WBC (4.4-10.8) 10^3/uL 5.05 RBC (4.36-5.78) 10^6/uL 5.71 Hgb (13.5-17.5) g/dL 16.3 Hct (40.0-50.0) % 50.6 H MCV (80-95) fL 89 MCH (27.0-33.0) pg 28.5 MCHC (32.0-36.0) % 32.2 RDW (11.8-14.1) % 13.7 Plt Count (130-400) 10^3/uL 327 MPV (8.0-11.0) fL 9.3 Immature Gran % 0.6 Neutrophils % 51.3 Lymphocytes % 31.5 Monocytes % 10.1 Eosinophils % 5.5 Basophils % 1.0 Nucleated RBC % (0.0-0.3) % 0.0 Absolute Neutrophils (1.2-6.7) 10^3/uL 2.59 Absolute Lymphocytes (1.2-3.4) 10^3/uL 1.59 Absolute Monocytes (0.1-0.8) 10^3/uL 0.51 Absolute Eosinophils (0.0-0.7) 10^3/uL 0.28 Absolute Basophils (0.0-0.2) 10^3/uL 0.05 Sodium (136-145) mmol/L 142 Potassium (3.5-5.1) mmol/L 4.2 Chloride (98-107) mmol/L 104 Carbon Dioxide (21.0-32.0) mmol/L 29.1 Anion Gap (3-11) mmol/L 8.9 BUN (7-18) mg/dL 13 Creatinine (0.70-1.30) mg/dL 1.7 H Est GFR (CKD-EPI 2020) (mL/min/1.73m2) 44.74 Glucose (74-106) mg/dL 88 Calcium (8.5-10.1) mg/dL 9.2 Magnesium (1.8-2.4) mg/dL 1.8 Total Bilirubin (0.2-1.0) mg/dL 0.4 AST (15-37) U/L 50 H ALT (16-63) U/L 50 Alkaline Phosphatase (46-116) U/L 73 Troponin I (<or=60) ng/L < 50 Total Protein (6.4-8.2) g/dL 8.0 Albumin (3.4-5.0) g/dL 4.0 TSH (0.36-3.74) uIU/mL 6.59 H Free T4 (0.76-1.46) ng/dL 1.91 H COVID-19 Source Nasal/Nares SARS-CoV-2 (PCR) (Negative) Negative HPI General Mode of arrival: EMS . Date/Time Provider Initiated Documentation: 06/24/22 13:10 . Limitations to Documentation: no limitations . Information obtained by: patient and EMS . HPI Narrative: 61-year-old male presents after unresponsive episode with ventricular ta chycardia. Patient notes he woke up this morning feeling well and later developed palpitations. He was in his recliner when he lost consciousness. called EMS. EMS arrived to find the patient unconscious hypotensive and with wide-complex regular tachycardia. Cardioversion was performed with 100 J and patient successfully cardioverted. Patient patient now mentating at baseline. He has no complaints. Related Data Home Medications Medication Instructions Recorded Confirmed allopurinol 300 mg tablet 300 mg PO DAILY #30 tabs 01/11/20 06/24/22 amlodipine 10 mg tablet 10 mg PO DAILY #30 tabs 01/11/20 06/24/22 furosemide 20 mg tablet 20 mg PO DAILY #30 tabs 01/11/20 06/24/22 hydroxychloroquine 200 mg tablet 200 mg PO BID #30 tabs 01/11/20 06/24/22 lisinopril 40 mg tablet 20 mg PO DAILY #30 tabs 01/11/20 06/24/22 metoprolol tartrate 25 mg tablet 25 mg PO BID #60 tabs 01/11/20 06/24/22 cyclobenzaprine 10 mg tablet 10 mg PO 1XD 06/24/22 06/24/22 Previous Rx's Medication Instructions Recorded allopurinol 300 mg tablet 300 mg PO DAILY #30 tabs 01/11/20 amlodipine 10 mg tablet 10 mg PO DAILY #30 tabs 01/11/20 furosemide 20 mg tablet 20 mg PO DAILY #30 tabs 01/11/20 hydroxychloroquine 200 mg tablet 200 mg PO BID #30 tabs 01/11/20 lisinopril 40 mg tablet 20 mg PO DAILY #30 tabs 01/11/20 metoprolol tartrate 25 mg tablet 25 mg PO BID #60 tabs 01/11/20 Allergies Allergy/AdvReac Type Severity Reaction Status Date / Time No Known Allergies Allergy Unverified 06/24/22 14:32 General Stated Complaint: Palpitatns JT: 2 PFSH All Active Problems (Updated 06/24/22 @ 14:43 by Shakeel Locke MD) Ventricular tachycardia (Chronic) Gout (Acute) Ambulatory dysfunction (Acute) Osteoarthritis (Chronic) Arthritis, rheumatoid (Chronic) HTN (hypertension) (Chronic) Medical History Cough Surgical History History of bunionectomy of left great toe Social History Smoking/Tobacco Use Status: Former Tobacco Use Smoking risk assessment performed?: Yes Alcohol Intake: former Drug use: Never Substance use type: does not use Do you feel safe at home: Yes Do you feel safe in your relationship?: Yes Exam Const General: cooperative and no acute distress HENMT Mouth: mucous membranes dry Eyes Conjunctivae: normal conjunctivae Sclera: normal sclerae Neck Neck: trachea midline Resp Auscultation: clear to auscultation bilaterally, no rales, no rhonchi and no wheezes Cardio Rate: tachycardic Rhythm: regular rhythm Heart Sounds: no murmurs GI Palpation: soft, not firm, no guarding, no masses, not rigid and nontender Skin General skin exam: no rashes or lesions noted Neuro General: patient alert, patient awake and tone normal Other: Intermittent spasms of left face that are involuntary Extrem General: no edema Psych Appearance: grossly normal Mental Status: mental status grossly normal Course Vital Signs Vital signs: Vital Signs Temperature 37.1 C 06/24/22 13:00 Pulse 115 H 06/24/22 13:00 Respiratory Rate 20 06/24/22 13:00 Blood Pressure 154/103 H 06/24/22 13:00 Pulse Oximetry 98 06/24/22 13:00 Temperature 37.1 C 06/24/22 13:00 Pulse 115 H 06/24/22 13:00 Respiratory Rate 20 06/24/22 13:00 Blood Pressure 154/103 H 06/24/22 13:00 Pulse Oximetry 98 06/24/22 13:00 Oxygen Delivery Method Room Air 06/24/22 13:00 Oxygen Flow Rate 0 06/24/22 13:00 Pain Level 0 06/24/22 13:00
[2022-06-24 13:24] LABS: Source Nasal/Nares
[2022-06-24 13:29] LABS: Abs Immature Grans 0.03 10^3/uL (0.0-0.06); Absolute Basophil Count 0.05 10^3/uL (0.0-0.2); Absolute Eosinophil Count 0.28 10^3/uL (0.0-0.7); Absolute Lymphocyte Count 1.59 10^3/uL (1.2-3.4); Absolute Monocyte Count 0.51 10^3/uL (0.1-0.8); Absolute Neutrophil Count 2.59 10^3/uL (1.2-6.7); Eosinophils % 5.5; HCT 50.6 % (40.0-50.0); HGB 16.3 g/dL (13.5-17.5); Immature Grans % 0.6; Lymphocytes % 31.5; MCH 28.5 pg (27.0-33.0); MCHC 32.2 % (32.0-36.0); MCV 89 fL (80-95); MPV 9.3 fL (8.0-11.0); Monocytes % 10.1; Neutrophils % 51.3; Platelet Count 327 10^3/uL (130-400); RBC 5.71 10^6/uL (4.36-5.78); RDW 13.7 % (11.8-14.1); RDW-SD 44.4 fL; WBC 5.05 10^3/uL (4.4-10.8)
[2022-06-24 13:49] LABS: ALT 50 U/L (16-63); AST 50 U/L (15-37); Alkaline Phosphatase 73 U/L (46-116); Anion Gap 8.9 mmol/L (3-11); BUN 13 mg/dL (7-18); Bilirubin, Total 0.4 mg/dL (0.2-1.0); CO2 29.1 mmol/L (21.0-32.0); CREATININE 1.7 mg/dL (0.70-1.30); Calcium 9.2 mg/dL (8.5-10.1); Chloride 104 mmol/L (98-107); Estimated GFR 44.74 (mL/min/1.73m2); Glucose 88 mg/dL (74-106); Magnesium 1.8 mg/dL (1.8-2.4); Potassium 4.2 mmol/L (3.5-5.1); Sodium 142 mmol/L (136-145); TSH (W/Ref FT4) 6.59 uIU/mL (0.36-3.74); Troponin I < 50 ng/L (<or=60)
[2022-06-24 13:56] LABS: COVID-19 PCR Negative (Negative)
[2022-06-24 14:07] LABS: FREE T4 1.91 ng/dL (0.76-1.46)
[2022-06-24 17:28] LABS: Troponin I 526 ng/L (<or=60)
--- NOTE | 2022-06-24 18:43 | HPE_ITS ---
Date of service: 06/24/22 Time of Service: 18:43 Assessment and Plan Assessment and plan (1) Ventricular tachycardia: Status: Chronic Assessment and plan: Now in NSR s/p cardioversion. Cardiology consulted. Telemetry monitoring in the ICU Will likely need cardiac catheterization. Troponin initially negative, then 526 > 439. Demand ischemia d/t Vtach. (2) HTN (hypertension): Status: Chronic Assessment and plan: Cont metoprolol; may need to titrate upward. Cont amlodipine and lisinopril. 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 Palliative consult. (4) Arthritis, rheumatoid: Status: Chronic Assessment and plan: Cont hydroxychloroquine. Qualifiers: Rheumatoid arthritis location: multiple sites Rheumatoid factor presence: unspecified presence Qualified Code(s): M06.9 - Rheumatoid arthritis, unspecified History of Present Illness History of Present Illness Chief Complaint: Syncope, V-tach Narrative: This is a 61 yo male with a PMH of HTN, ambulatory dysfunction, impaired cognition, RA, ambulatory dysfunction. He presented via EMS after his found him unresponsive in a recliner. He had told his earlier that he felt well initially upon waking then developed palpitations. He did not c/o CP. EMS found him unresponsive and hypotensive with a wide-complex regular tachycardia. Cardioversion performed with 100J and he cardioverted to sinus rhythm. He returned, per , to his baseline level of mentation. He was hemodynamically stable upon arrival to the ED. Labs of note were a creatinine of 1.7. Negative d-dimer and troponin. Free T4 mildly elevated. TSH 6.59. CT head negative for acute process. On monitoring engineer his HR was in the 70's and BP stable. Admitted to the ICU for further workup and cardiology consult. Review of Systems All systems reviewed & are unremarkable except as noted in HPI and below PFSH All Active Problems (Updated 06/25/22 @ 14:43 by Sarmad Kahn MD) Cognitive impairment (Acute) Urinary retention (Acute) Ventricular tachycardia (Chronic) Gout (Acute) Ambulatory dysfunction (Acute) Osteoarthritis (Chronic) Arthritis, rheumatoid (Chronic) HTN (hypertension) (Chronic) Medical History Cough Surgical History History of bunionectomy of left great toe Social History Smoking/Tobacco Use Status: Former Tobacco Use Smoking risk assessment performed?: Yes Alcohol Intake: former Drug use: Never Substance use type: does not use Do you feel safe at home: Yes Do you feel safe in your relationship?: Yes Meds Allergies and Home Medications Allergies Allergy/AdvReac Type Severity Reaction Status Date / Time No Known Allergies Allergy Unverified 06/24/22 14:32 Home Medications Medication Instructions Recorded Confirmed Type allopurinol 300 mg tablet 300 mg PO DAILY #30 tabs 01/11/20 06/24/22 Rx amlodipine 10 mg tablet 10 mg PO DAILY #30 tabs 01/11/20 06/24/22 Rx furosemide 20 mg tablet 20 mg PO DAILY #30 tabs 01/11/20 06/24/22 Rx hydroxychloroquine 200 mg tablet 200 mg PO BID #30 tabs 01/11/20 06/24/22 Rx lisinopril 40 mg tablet 20 mg PO DAILY #30 tabs 01/11/20 06/24/22 Rx metoprolol tartrate 25 mg tablet 25 mg PO BID #60 tabs 01/11/20 06/24/22 Rx cyclobenzaprine 10 mg tablet 10 mg PO 1XD 06/24/22 06/24/22 History Exam Narrative Exam Narrative: 61 yo male that appears older than stated age. He was initially using the urinal while in bed. Appeared restless but not agitated. Const General: cooperative and no acute distress Nutritional Appearance: obese Orientation: alert and oriented to person Limitations: altered mental status (Poor recall of recent events. ) [facility] Head: normocephalic and atraumatic Eyes General: appearance normal, both eyes and all related structures Sclera: sclerae normal Neck Neck: full ROM Resp Effort & Inspection: normal respiratory effort Auscultation: clear to auscultation bilaterally Cardio Rate: regular rate Rhythm: regular rhythm Heart Sounds: S1 normal and S2 normal GI Inspection: non-distended Palpation: soft and nontender Skin General skin exam: no rashes or lesions noted Neuro General: no focal motor deficits Cranial Nerves: facial strength normal Speech: speech normal Extrem General: no pedal edema and no calf tenderness Psych Appearance: grossly normal Affect: blunted Results Labs 06/24/22 13:05 06/24/22 13:05 Labs: Laboratory Results - last 24 hr 06/24/22 06/24/22 06/24/22 13:05 13:05 13:21 WBC 5.05 RBC 5.71 Hgb 16.3 Hct 50.6 H MCV 89 MCH 28.5 MCHC 32.2 RDW 13.7 Plt Count 327 MPV 9.3 Immature Gran % 0.6 Neutrophils % 51.3 Lymphocytes % 31.5 Monocytes % 10.1 Eosinophils % 5.5 Basophils % 1.0 Nucleated RBC % 0.0 Absolute Neutrophils 2.59 Absolute Lymphocytes 1.59 Absolute Monocytes 0.51 Absolute Eosinophils 0.28 Absolute Basophils 0.05 Sodium 142 Potassium 4.2 Chloride 104 Carbon Dioxide 29.1 Anion Gap 8.9 BUN 13 Creatinine 1.7 H Est GFR (CKD-EPI 2020) 44.74 Glucose 88 Calcium 9.2 Magnesium 1.8 Total Bilirubin 0.4 AST 50 H ALT 50 Alkaline Phosphatase 73 Troponin I < 50 Total Protein 8.0 Albumin 4.0 TSH 6.59 H Free T4 1.91 H COVID-19 Source Nasal/Nares SARS-CoV-2 (PCR) Negative 06/24/22 16:45 WBC RBC Hgb Hct MCV MCH MCHC RDW Plt Count MPV Immature Gran % Neutrophils % Lymphocytes % Monocytes % Eosinophils % Basophils % Nucleated RBC % Absolute Neutrophils Absolute Lymphocytes Absolute Monocytes Absolute Eosinophils Absolute Basophils Sodium Potassium Chloride Carbon Dioxide Anion Gap BUN Creatinine Est GFR (CKD-EPI 2020) Glucose Calcium Magnesium Total Bilirubin AST ALT Alkaline Phosphatase Troponin I 526 H* Total Protein Albumin TSH Free T4 COVID-19 Source SARS-CoV-2 (PCR) Last Vital Signs Temp 36.7 C 06/24/22 16:08 Pulse 71 06/24/22 16:08 Resp 20 06/24/22 16:08 BP 134/94 H 06/24/22 15:45 Pulse Ox 95 06/24/22 16:08 Time Spent Time spent with Patient: 40-54 minutes Time was spent: preparing to see the patient(eg.review tests), ordering medications,tests, procedures, indepentently interpreting results and counseling the patient
[2022-06-24] MEDS: Metoprolol 25 MG TAB PO (20:41)
[2022-06-24] MEDS: Hydroxychloroquine 200 MG TAB PO (20:41)
[2022-06-24 21:24] LABS: Troponin I 439 ng/L (<or=60)
[2022-06-25] VITALS (36 sets, daily range): BP systolic 129–185; BP diastolic 80–134; PULSE 66–95; RESP 10–30; TEMP 36.6–37.4; O2SAT 93–100
[2022-06-25] MEDS: LORazepam 1 MG TAB PO ×2 (01:32→19:40)
[2022-06-25] MEDS: hydrALAZINE 10 MG TAB PO (03:03)
[2022-06-25 06:41] LABS: Anion Gap 8.6 mmol/L (3-11); BUN 17 mg/dL (7-18); CO2 25.4 mmol/L (21.0-32.0); CREATININE 1.4 mg/dL (0.70-1.30); Calcium 8.6 mg/dL (8.5-10.1); Chloride 106 mmol/L (98-107); Estimated GFR 56.48 (mL/min/1.73m2); Glucose 91 mg/dL (74-106); Potassium 3.7 mmol/L (3.5-5.1); Sodium 140 mmol/L (136-145)
--- NOTE | 2022-06-25 08:44 | PDOC.CMIN ---
- If Service Date Differs Date of service: 06/25/22 Time of Service: 08:44 Care Management Initial Assess REASON FOR HOSPITALIZATION:: Ventricular tachycardia PAST MEDICAL HISTORY/PAST SURGICAL HISTORY:: All Active Problems (Updated 06/24/22 @ 14:43 by Shakeel Locke MD). Ventricular tachycardia (Chronic). Gout (Acute). Ambulatory dysfunction (Acute). Osteoarthritis (Chronic). Arthritis, rheumatoid (Chronic). HTN (hypertension) (Chronic). Medical History . Cough. Surgical History . History of bunionectomy of left great toe PREVIOUS FUNCTIONAL STATUS/SOCIAL/FAMILY SUPPORTS:: Will, who likes to be called Kamran, resides with his significant other Chavez in an apartment in [place], [place]. 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 He requires help with showering and dressing and uses a walker for ambulation. Chavez provides all of his care and they receive no community services. CURRENT FUNCTIONAL STATUS:: Kamran was sitting up in bed talking to his significant other Chavez on the phone when CM met with him. He stated that he felt well and that things are going well at home. He denied the need for any services or assistance. CM also spoke to Chavez on the phone earlier. She confirmed that they are doing alright'. She indicated that Kamran began having memoy issues a couple of years ago and that it seems to be getting worse. She did state that she has been giving him Prevagen and it seems to help. She also stated that his confusion is worse in the morning and tends to clear later in the day. CM offered to send a referral to [facility] for memory loss support but Chavez declined at this time. ADVANCE DIRECTIVES:: none on file Has patient been provided with info about the portal/API?: Yes Did the patient sign up for the portal?: No CODE STATUS:: Full Code INSURANCE COVERAGE / FINANCIAL ISSUES:: Medicare. Medicaid CURRENT HOME/COMMUNITY SERVICES/EQUIPMENT:: uses a walker at time PRIMARY CARE PHYSICIAN:: Viridiana Torres POTENTIAL DISCHARGE NEEDS:: follow up with PCP and plan of care PATIENT/FAMILY EDUCATION NEEDS:: Review of discharge instructions, limitations, follow up plan, activity, discuss [employer] TRANSPORTATION:: via privatre vehicle with family PLAN:: Anticipate Kamran will discharge home with no new services. He will follow up with Cardiology and his PCP and plan of care as prescribed. CM will offer support to Kamran and his discharge planning needs.
--- NOTE | 2022-06-25 09:05 | W.CARDCONSUL ---
Date of service: 06/25/22 Time of Service: 09:05 Assessment and Plan Assessment and plan (1) Ventricular tachycardia: Status: Chronic Assessment and plan: The case was discussed with Dr. Kahn Patient had sustained monomorphic ventricular tachycardia requiring cardioversion. This would be presumed to be on the basis of myocardial ischemia unless determined otherwise. His troponins are elevated and would be consistent with this. I would recommend uptitrating his beta-yoni as allowed by blood pressure and heart rate (he is on low-dose Lopressor). Consider change to metoprolol succinate. He also should have amiodarone administered intravenously for 24 to 48 hours, follow-up EKGs and an echocardiogram. Ideally an ischemic evaluation consisting of coronary angiography would be recommended. It is important to know if his LV function is normal so the echo would be the first step (2) HTN (hypertension): Status: Chronic Qualifiers: Hypertension type: essential hypertension Qualified Code(s): I10 - Essential (primary) hypertension History of Present Illness History of Present Illness Chief Complaint: Ventricular tachycardia Narrative: This is a 61-year-old man with a history of hypertension and rheumatoid arthritis who was admitted after being found with monomorphic ventricular tachycardia requiring cardioversion. History was obtained from the patient's over phone. She says he was in his usual state of health went to sit in their living room. He said his heart was racing. She tried to feel his pulse and noted that it was rapid and weak. Thereafter he did not respond appropriately to questioning and she called 911. According to the emergency room records, the patient required cardioversion for monomorphic ventricular tachycardia. His subsequent electrocardiogram showed sinus rhythm left anterior fascicular block early R wave transition and lateral ST-T abnormalities. No ST elevation was noted. Troponins have been elevated to 526 and 439. He has had additional brief runs of nonsustained ventricular tachycardia and AIVR overnight. He has not had a second EKG. Echocardiogram is pending Reportedly the patient has no specific cardiac history though the says that years ago when they lived in [place] he had a similar unresponsive spell for which she was briefly hospitalized. She does not think he had any cardiac testing. Family history is notable for coronary disease in his mother In addition to rheumatoid arthritis, the patient has gout and some degree of abnormal mental status and is often confused or has memory issues Review of Systems Narrative: Unable to obtain due to patient's mental status PFSH All Active Problems (Updated 06/24/22 @ 14:43 by Shakeel Locke MD) Ventricular tachycardia (Chronic) Gout (Acute) Ambulatory dysfunction (Acute) Osteoarthritis (Chronic) Arthritis, rheumatoid (Chronic) HTN (hypertension) (Chronic) Medical History Cough Surgical History History of bunionectomy of left great toe Social History Smoking/Tobacco Use Status: Former Tobacco Use Smoking risk assessment performed?: Yes Alcohol Intake: former Drug use: Never Substance use type: does not use Do you feel safe at home: Yes Do you feel safe in your relationship?: Yes Exam Const Other: Well-developed well-nourished looks older than stated age no acute distress Neck Other: No neck vein distention no V waves carotid pulsations are grossly normal Resp Auscultation: clear to auscultation bilaterally Cardio Other: Heart is regular distant no murmur or gallop Extrem Other: No peripheral edema Results Last Vital Signs Temp 36.8 C 06/24/22 20:00 Pulse 73 06/25/22 06:01 Resp 18 06/25/22 06:01 BP 155/95 H 06/25/22 06:01 Pulse Ox 98 06/25/22 03:31 Labs 06/24/22 13:05 06/25/22 05:23 Labs: Laboratory Results - last 24 hr 06/24/22 06/24/22 06/24/22 13:05 13:05 13:21 WBC 5.05 RBC 5.71 Hgb 16.3 Hct 50.6 H MCV 89 MCH 28.5 MCHC 32.2 RDW 13.7 Plt Count 327 MPV 9.3 Immature Gran % 0.6 Neutrophils % 51.3 Lymphocytes % 31.5 Monocytes % 10.1 Eosinophils % 5.5 Basophils % 1.0 Nucleated RBC % 0.0 Absolute Neutrophils 2.59 Absolute Lymphocytes 1.59 Absolute Monocytes 0.51 Absolute Eosinophils 0.28 Absolute Basophils 0.05 Sodium 142 Potassium 4.2 Chloride 104 Carbon Dioxide 29.1 Anion Gap 8.9 BUN 13 Creatinine 1.7 H Est GFR (CKD-EPI 2021) 44.74 Glucose 88 Calcium 9.2 Magnesium 1.8 Total Bilirubin 0.4 AST 50 H ALT 50 Alkaline Phosphatase 73 Troponin I < 50 Total Protein 8.0 Albumin 4.0 TSH 6.59 H Free T4 1.91 H COVID-19 Source Nasal/Nares SARS-CoV-2 (PCR) Negative 06/24/22 06/24/22 06/25/22 16:45 20:46 05:23 WBC RBC Hgb Hct MCV MCH MCHC RDW Plt Count MPV Immature Gran % Neutrophils % Lymphocytes % Monocytes % Eosinophils % Basophils % Nucleated RBC % Absolute Neutrophils Absolute Lymphocytes Absolute Monocytes Absolute Eosinophils Absolute Basophils Sodium 140 Potassium 3.7 Chloride 106 Carbon Dioxide 25.4 Anion Gap 8.6 BUN 17 Creatinine 1.4 H Est GFR (CKD-EPI 2020) 56.48 Glucose 91 Calcium 8.6 Magnesium Total Bilirubin AST ALT Alkaline Phosphatase Troponin I 526 H* 439 H* Total Protein Albumin TSH Free T4 COVID-19 Source SARS-CoV-2 (PCR)
[2022-06-25] MEDS: Lisinopril 20 MG TAB PO (09:32)
[2022-06-25] MEDS: amLODIPine 10 MG TAB PO (09:32)
[2022-06-25] MEDS: Cyclobenzaprine 10 MG TAB PO (09:32)
[2022-06-25] MEDS: Hydroxychloroquine 200 MG TAB PO ×2 (09:32→19:40)
[2022-06-25] MEDS: Allopurinol 300 MG TAB PO (09:32)
[2022-06-25] MEDS: Metoprolol CR 50 MG TABCR PO ×2 (09:32→19:48)
--- NOTE | 2022-06-25 09:55 | PHA.REVIEW2 ---
Pharmacy Admission Review - Admission Clinical Review No Known Allergies Allergy (Unverified 06/24/22 14:32) Resuscitation Status Full Code Height 5 ft 10 in Weight 99.2 kg - Renal Dosing Renal Dosing: BUN 17 mg/dL (7-18) 06/25/22 05:23 Creatinine 1.4 mg/dL (0.70-1.30) H 06/25/22 05:23 - Anticoagulation Anticoagulation: Hgb 16.3 g/dL (13.5-17.5) 06/24/22 13:05 Hct 50.6 % (40.0-50.0) H 06/24/22 13:05 Plt Count 327 10^3/uL (130-400) 06/24/22 13:05 Creatinine 1.4 mg/dL (0.70-1.30) H 06/25/22 05:23 - Relevant Labs Sodium 140 mmol/L (136-145) 06/25/22 05:23 Potassium 3.7 mmol/L (3.5-5.1) 06/25/22 05:23 Chloride 106 mmol/L (98-107) 06/25/22 05:23 Magnesium 1.8 mg/dL (1.8-2.4) 06/24/22 13:05 - DM Control DM Control: Glucose 91 mg/dL (74-106) 06/25/22 05:23 - Cardiac Review Cardiac Review: Troponin I 439 ng/L (<or=60) H* 06/24/22 20:46
[2022-06-25] MEDS: Lidocaine 2% Jelly 6 ML SYR ×2 (11:15→14:14)
[2022-06-25] MEDS: Tamsulosin 0.4 MG CAPCR PO (11:40)
--- NOTE | 2022-06-25 12:37 | W.UROLOGYCON ---
Date of service: 06/25/22 Time of Service: 12:40 Assessment and Plan Assessment and plan (1) Urinary retention: Status: Acute Assessment and plan: His Castellanos cath that there is now successfully placed and he has been started on tamsulosin. We generally recommend a voiding trial after about 3 days worth of tamsulosin. It is also helpful to optimize the patient's bowel function and mobility before giving a voiding trial. I would expect the patient's voiding symptoms to return to his baseline as he recovers. History of Present Illness History of Present Illness Chief Complaint: Urinary retention Narrative: This is a 61-year-old gentleman who was admitted to the hospital for an episode of ventricular tachycardia. The patient tells me he did not really have any urinary symptoms prior to his admission, but he has had issues with urinary incontinence and an inability to completely empty his bladder since his cardiac episode. He was bladder scanned for a volume of 350 cc. The staff was unable to place a Castellanos catheter. I have been asked to place an indwelling catheter. He has not had any prior urologic surgery. He has had catheters previously. He has no other history of urethral injuries or trauma. Review of Systems Constitutional Constitutional: Denies chills and Denies fever(s) Gastrointestinal Gastrointestinal: Denies nausea and Denies vomiting Neurologic Neurologic: Denies confusion and Denies seizure-like activity Psychiatric Psychiatric: Denies confusion PFSH All Active Problems (Updated 06/25/22 @ 12:47 by Noel Hernández MD) Urinary retention (Acute) Ventricular tachycardia (Chronic) Gout (Acute) Ambulatory dysfunction (Acute) Osteoarthritis (Chronic) Arthritis, rheumatoid (Chronic) HTN (hypertension) (Chronic) Medical History Cough Surgical History History of bunionectomy of left great toe Social History Smoking/Tobacco Use Status: Former Tobacco Use Smoking risk assessment performed?: Yes Alcohol Intake: former Drug use: Never Substance use type: does not use Do you feel safe at home: Yes Do you feel safe in your relationship?: Yes Exam Narrative Exam Narrative: He appears fairly stable He does not appear septic or toxic His vital signs are documented elsewhere His abdomen is soft with no peritoneal signs He is uncircumcised. He is awake and alert Results Last Vital Signs Temp 36.7 C 06/25/22 08:00 Pulse 86 06/25/22 11:01 Resp 23 06/25/22 11:01 BP 139/81 06/25/22 11:01 Pulse Ox 100 06/25/22 08:06 Labs 06/24/22 13:05 06/25/22 05:23 Labs: Laboratory Results - last 24 hr 06/24/22 06/24/22 06/24/22 13:05 13:05 13:21 WBC 5.05 RBC 5.71 Hgb 16.3 Hct 50.6 H MCV 89 MCH 28.5 MCHC 32.2 RDW 13.7 Plt Count 327 MPV 9.3 Immature Gran % 0.6 Neutrophils % 51.3 Lymphocytes % 31.5 Monocytes % 10.1 Eosinophils % 5.5 Basophils % 1.0 Nucleated RBC % 0.0 Absolute Neutrophils 2.59 Absolute Lymphocytes 1.59 Absolute Monocytes 0.51 Absolute Eosinophils 0.28 Absolute Basophils 0.05 Sodium 142 Potassium 4.2 Chloride 104 Carbon Dioxide 29.1 Anion Gap 8.9 BUN 13 Creatinine 1.7 H Est GFR (CKD-EPI 2020) 44.74 Glucose 88 Calcium 9.2 Magnesium 1.8 Total Bilirubin 0.4 AST 50 H ALT 50 Alkaline Phosphatase 73 Troponin I < 50 Total Protein 8.0 Albumin 4.0 TSH 6.59 H Free T4 1.91 H COVID-19 Source Nasal/Nares SARS-CoV-2 (PCR) Negative 06/24/22 06/24/22 06/25/22 16:45 20:46 05:23 WBC RBC Hgb Hct MCV MCH MCHC RDW Plt Count MPV Immature Gran % Neutrophils % Lymphocytes % Monocytes % Eosinophils % Basophils % Nucleated RBC % Absolute Neutrophils Absolute Lymphocytes Absolute Monocytes Absolute Eosinophils Absolute Basophils Sodium 140 Potassium 3.7 Chloride 106 Carbon Dioxide 25.4 Anion Gap 8.6 BUN 17 Creatinine 1.4 H Est GFR (CKD-EPI 2020) 56.48 Glucose 91 Calcium 8.6 Magnesium Total Bilirubin AST ALT Alkaline Phosphatase Troponin I 526 H* 439 H* Total Protein Albumin TSH Free T4 COVID-19 Source SARS-CoV-2 (PCR) Insert Bladder Catheter Procedure performed by: Noel Hernández Indication for procedure: Yes Position of patient: supine Sterilizing agent: Yes Type: other Type of anesthesia: topical gel Catheter size (Fr): 16 Catheter type: coude tip Lubrication: Yes Catheter inserted: without difficulty Volume instilled into catheter balloon: 10 mL Amount of urine: 100 mL Urine color: clear Urine clarity: clear Clots present: No Irrigation: No Catheter attached to: bedside drainage bag Patient tolerated procedures: well Complications: No
[2022-06-25] MEDS: Normal Saline-STERILE FIELD 0.9% 10 ML SYR (14:07)
--- NOTE | 2022-06-25 14:10 | DI.US_ITS ---
APPROVED REPORT EXAM: Comprehensive 2D, Doppler, and color-flow Echocardiogram Patient Location: In-Patient Room/Bed: PCI379 Wallpaper Inspector And Shipper: Adri Mares RDCS (AE) Indications: V Tach, Cardioverted HTN Other Information Study Quality: Fair. Technically limited study due to body habitus, inability to position patient exa m done supine bedside. Conclusion Normal left ventricular wall thickness and chamber size. Estimated ejection fraction is 50 to 55%. There are no segmental wall motion abnormalities Normal right ventricular size and systolic function Both atria are normal in size Aortic valve is mildly sclerotic and trileaflet without stenosis or regurgitation Normal mitral valve with mild regurgitation Wall motion Left Ventricle The left ventricle is normal size. Left ventricular systolic function is mildly decreased. There is n ormal left ventricular wall thickness. There are no segmental wall motion abnormalities There is no v entricular septal defect visualized. LVEF is 50-55%. Right Ventricle The right ventricle is normal size. The right ventricular systolic function is normal. Atria The left atrium size is normal. The right atrium size is normal. The interatrial septum is intact wit h no evidence for an atrial septal defect. Aortic Valve The Aortic valve is mildly sclerotic. Aortic valve is trileaflet. There is no aortic valvular stenosi s. No aortic regurgitation is present. Mitral Valve The mitral valve is normal in structure. No evidence of mitral valve stenosis. Mild mitral regurgitat ion. Tricuspid Valve The tricuspid valve is normal in structure. There is no tricuspid valve stenosis. Trace tricuspid reg urgitation. Unable to assess PA pressure. Pulmonic Valve The pulmonary valve is normal in structure. There is no pulmonic valvular stenosis. There is no pulmo wilber valvular regurgitation. Great Vessels The aortic root is normal in size. The ascending aorta is normal in size. Aortic arch is not l visual ized. The IVC was not visualized. Pericardium Technically limited subcostal imaging 2D Dimensions IVSD d PLAX 0.73 cm M: 0.6-1.2 LV Vol A2C d MOD 119.6 mL LVPW d PLAX 0.73 cm M: 0.6 - 1.2 LV Vol A4C d MOD 123.2 mL LVID d PLAX 4.67 cm M: 4.2 - 5.8 LA vol/ BSA A2C s A-L 20.2 mL/m2 LVDs 3.40 cm M: 2.5 - 4.0 LA vol/ BSA A4C s A-L 24.7 mL/m2 Ao Root d 2.85 cm M: 3.1 - 3.7 LA Vol/ BSA Biplane s A-L 23.8 mL/m2 RA Area A4C 15.21 cm2 LA Area A4C s MOD 19.29 cm2 RA Vol/ BSA A4C s A-L 17.2 mL/m2 LA Area A2C s MOD 16.34 cm2 Ao Asc Diam d 3.36 cm M: 2.6 - 3.4 LV EF A4C MOD 50.4 % LV EF Teichholz 52.6 % LV EF A2C MOD 50.5 % LVEF (Serrano's) 49.47 % M: 52 - 72 LV EF Biplane MOD 49.5 % LV Volume 89.30 mL M: 62 - 150 SV 60.44 mL LV Volume Index 41.15 mL/m2 M: 34 - 74 SV Index 27.91 mL/m2 LV Vol Biplane MOD 122.2 mL FS 26.90 % M-Mode TAPSE 1.37 cm (M/F) >1.7 LV Diastology MV E' medial 0.056 (>0.07 m/s) E/A Ratio 0.6 LV E/e MED 10.60 (<14) MV E Vmax 0.60 (0.4-1.3 m/s) MV E' lateral 0.072 (>0.1 m/s) MV A Vmax 0.95 (0.4-1.3 m/s) LV E/e LAT 8.25 (<14) MV E/A Ratio 0.60 MV E/E' medial 10.61 MV E/E' lateral 8.27 Aortic Valve LVOT Area 3.58 cm2 AoV Area Vmax 3.20 cm2 LVOT Vmax 1.21 m/s AoV Area/ BSA (Vmax) 1.48 cm2/m2 LVOT Mean Derik. 0.74 m/s KORY Mean Derik. 2.81 cm2 LVOT Peak Grad 5.9 mmHg KORY Mean Derik. Index 1.30 cm2/m2 LVOT Mean Grad 2.7 mmHg LVOT VTI 0.209 m LVOT Diam s 2.10 cm AoV Vmax 1.36 m/s Velocity Ratio 0.89 AoV Mean Derik. 0.94 m/s AoV Peak Grad 7.4 mmHg LVOT SV 74.73 mL AoV Mean Grad 4.0 mmHg AoV VTI 0.230 m AoV Area VTI 3.24 cm2 AoV Area/ BSA (VTI) 1.50 cm/m2 Mitral Valve MV DT 279 (160-240 msec) MV PHT 81 msec MV Area PHT 2.72 cm2 MV VTI 0.211 m MV Area VTI 3.54 (4.0-6.0 cm2) Pulmonary Valve PV Vmax 0.82 (0.5-1.5 m/s) RVOT Peak Gr. 1.50 mmHg PV Peak Grad 2.7 mmHg RVOT Mean Gr. 0.70 mmHg PV Mean Grad 1.5 mmHg RVOT VTI 0.107 m PV VTI 0.141 m RVOT Vmax 0.61 m/s
--- NOTE | 2022-06-25 15:11 | PGE_ITS ---
Date of Service Date of service: 06/25/22 Time of Service: 15:12 Assessment and Plan Assessment and plan (1) Urinary retention: Status: Acute Assessment and plan: Obstructive process secondary to BPH. Urology consult appreciated. Initiated tamsulosin Castellanos catheter placed by Dr Hernández (2) Gout: Status: Acute Assessment and plan: Cont allopurinol Qualifiers: Gout site: multiple sites Chronicity: chronic (3) Ventricular tachycardia: Status: Chronic Assessment and plan: Now in NSR s/p cardioversion. Cardiology consult appreciated. Recommended amiodarone drip for 24-48 hours. This was initiated. Also recommended increasing metoprolol; increased to Toprol Xl 50mg BID. Telemetry monitoring in the ICU Will likely need cardiac catheterization. Troponin initially negative, then 526 > 439. Demand ischemia d/t Vtach. (4) HTN (hypertension): Status: Chronic Assessment and plan: Cont metoprolol, now at increased dosage. Cont amlodipine and lisinopril. 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 Palliative consult. (6) Arthritis, rheumatoid: Status: Chronic Assessment and plan: Cont hydroxychloroquine. Qualifiers: Rheumatoid arthritis location: multiple sites Rheumatoid factor presence: unspecified presence Qualified Code(s): M06.9 - Rheumatoid arthritis, unspecified Subjective Subjective Patient reports: tolerating a regular diet and afebrile; denies nausea or vomiting Interval history since last seen: Patient having difficulty voiding; voids small amounts. No dysuria. Also noted to be confused and endorses this has been gradually progressing. Impulsive. Exam Narrative Exam Narrative: 61 yo male that appears older than stated age. Const General: cooperative and no acute distress Nutritional Appearance: obese Orientation: alert and oriented to person Limitations: altered mental status (Poor recall of recent events. ) HENWA Head: normocephalic and atraumatic Eyes General: appearance normal, both eyes and all related structures Sclera: sclerae normal Neck Neck: full ROM Resp Effort & Inspection: normal respiratory effort Auscultation: clear to auscultation bilaterally Cardio Rate: regular rate Rhythm: regular rhythm Heart Sounds: S1 normal and S2 normal GI Inspection: non-distended Palpation: soft and nontender Skin General skin exam: no rashes or lesions noted Neuro General: no focal motor deficits Cranial Nerves: facial strength normal Speech: speech normal Extrem General: no pedal edema and no calf tenderness Psych Appearance: grossly normal Mental Status: other (confused. Memory impaired. ) Mood: other (confused. Memory impaired. ) Affect: blunted Objective Last Vital Signs Temp 36.6 C 06/25/22 12:40 Pulse 87 06/25/22 14:12 Resp 23 06/25/22 14:00 BP 161/106 H 06/25/22 14:12 Pulse Ox 93 06/25/22 12:40 Laboratory Results - last 24 hr 06/24/22 06/24/22 06/25/22 16:45 20:46 05:23 Sodium 140 Potassium 3.7 Chloride 106 Carbon Dioxide 25.4 Anion Gap 8.6 BUN 17 Creatinine 1.4 H Est GFR (CKD-EPI 2020) 56.48 Glucose 91 Calcium 8.6 Troponin I 526 H* 439 H* Time Spent with Patient Time Spent with Patient: 25-34 minutes Time was spent: preparing to see the patient(eg.review tests), ordering medications,tests, procedures, referring, communicating with other health adult daycare coordinator and indepentently interpreting results
[2022-06-25] MEDS: Polyethylene Glycol 3350 17 GM PACKET PO (15:29)
[2022-06-25] MEDS: Metoprolol CR 25 MG TABCR PO (17:09)
[2022-06-25] MEDS: Amiodarone in Dextrose 360 MG/200 ML BAG 33.333 MG IV (17:57)
[2022-06-25] MEDS: Normal Saline Flush 10 ML SYR IVP (19:40)
[2022-06-25] MEDS: Haloperidol 5 MG/ML VIAL IM/IV (19:48)
[2022-06-26] VITALS (27 sets, daily range): BP systolic 126–151; BP diastolic 88–121; PULSE 63–90; RESP 14–28; TEMP 36.4–36.8; O2SAT 95–98
[2022-06-26] MEDS: Amiodarone in Dextrose 360 MG/200 ML BAG 16.667 MG IV ×2 (02:49→15:50)
[2022-06-26 07:27] LABS: ALT 30 U/L (16-63); AST 23 U/L (15-37); Albumin 3.1 g/dL (3.4-5.0); Alkaline Phosphatase 61 U/L (46-116); BUN 17 mg/dL (7-18); Bilirubin, Total 0.3 mg/dL (0.2-1.0); CREATININE 1.4 mg/dL (0.70-1.30); Calcium 8.8 mg/dL (8.5-10.1); Chloride 105 mmol/L (98-107); Estimated GFR 56.48 (mL/min/1.73m2); Glucose 97 mg/dL (74-106); Potassium 3.8 mmol/L (3.5-5.1); Sodium 139 mmol/L (136-145); Total Protein 6.4 g/dL (6.4-8.2)
[2022-06-26] MEDS: Cyclobenzaprine 10 MG TAB PO (09:04)
[2022-06-26] MEDS: Metoprolol CR 50 MG TABCR PO ×2 (09:04→20:03)
[2022-06-26] MEDS: Tamsulosin 0.4 MG CAPCR PO (09:05)
[2022-06-26] MEDS: Hydroxychloroquine 200 MG TAB PO ×2 (09:05→20:03)
[2022-06-26] MEDS: amLODIPine 10 MG TAB PO (09:05)
[2022-06-26] MEDS: Allopurinol 300 MG TAB PO (09:05)
[2022-06-26] MEDS: Polyethylene Glycol 3350 17 GM PACKET PO (09:06)
[2022-06-26] MEDS: Normal Saline Flush 10 ML SYR IVP ×2 (09:06→20:03)
[2022-06-26] MEDS: Lisinopril 20 MG TAB PO (09:06)
--- NOTE | 2022-06-26 10:16 | PDOC.CMPRO ---
- If Service Date Differs Date of service: 06/26/22 Time of Service: 10:16 Care Management Progress Note S/O:Kamran was sitting up in bed when CM met with him. He engaged easily with CM and was very pleasant, but also very vague. He smiled often and answered questions but was unable to provide a lot of information. He is unclear about his plan of care and does not have any idea when he will be discharged. A PT consult has been ordered but will not be done until tomorrow. Kamran has no further episodes of ventricular tachycardia. A: Kamran is a 61 year old man admitted on 06/24/22 with ventricular tachycardia P:Anticipate Kamran will discharge home with no new services. He will follow up with Cardiology and his PCP and plan of care as prescribed. CM will offer support to Kamran and his discharge planning needs.
--- NOTE | 2022-06-26 15:11 | W.PM.PROGNOT ---
Date of Service Date of service: 06/26/22 Time of Service: 15:11 Assessment and Plan Assessment and plan (1) Urinary retention: Status: Acute Assessment and plan: Obstructive process secondary to BPH. Urology consult appreciated. Initiated tamsulosin Castellanos catheter placed by Dr Hernández Voiding trial tomorrow. (2) Gout: Status: Acute Assessment and plan: Cont allopurinol Qualifiers: Gout site: multiple sites Chronicity: chronic (3) Ventricular tachycardia: Status: Chronic Assessment and plan: Now in NSR s/p cardioversion. Cardiology consult appreciated. Recommended amiodarone drip for 24-48 hours. This was initiated. Also recommended increasing metoprolol; increased to Toprol Xl 50mg BID. Telemetry monitoring in the ICU Cardiac catheterization would be recommended, however, given his significant dementia, he would not be considered a good candidate for cardiac interventions. Palliative consulted; is a full code. Troponin initially negative, then 526 > 439. Demand ischemia d/t Vtach. (4) HTN (hypertension): Status: Chronic Assessment and plan: Cont metoprolol, now at increased dosage. Cont amlodipine and lisinopril. Improved. 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 Palliative consult. (6) Arthritis, rheumatoid: Status: Chronic Assessment and plan: Ambulatory dysfunction from arthritis. Uses a wheelchair. Cont hydroxychloroquine. Qualifiers: Rheumatoid arthritis location: multiple sites Rheumatoid factor presence: unspecified presence Qualified Code(s): M06.9 - Rheumatoid arthritis, unspecified (7) Discharge planning issues: Status: Acute Assessment and plan: A meeting of palliative with the would be very helpful in deciding on goals of care. Certainly his code status should be addressed. I spoke with his significant other, Chavez. She still feels he would want to be a full code though he doesn't have the cognitive capacity at this time to comprehend the implications of full code vs DNR. Subjective Subjective Patient reports: no new complaints, tolerating a regular diet and afebrile; denies diarrhea, nausea or vomiting Interval history since last seen: Less impulsive; is more redirectable. Exam Narrative Exam Narrative: 61 yo male that appears older than stated age. In bed. Const General: cooperative and no acute distress Nutritional Appearance: obese Orientation: alert and oriented to person Limitations: altered mental status (Poor recall of recent events. ) [facility] Head: normocephalic and atraumatic Eyes General: appearance normal, both eyes and all related structures Sclera: sclerae normal Neck Neck: full ROM Resp Effort & Inspection: normal respiratory effort Auscultation: clear to auscultation bilaterally Cardio Rate: regular rate Rhythm: regular rhythm Heart Sounds: S1 normal and S2 normal GI Inspection: non-distended Palpation: soft and nontender Skin General skin exam: no rashes or lesions noted Neuro General: no focal motor deficits Cranial Nerves: facial strength normal Speech: speech normal Extrem General: no pedal edema and no calf tenderness Psych Appearance: grossly normal Mental Status: other (confused. Memory impaired. ) Mood: other (confused. Memory impaired. ) Affect: blunted Objective Last Vital Signs Temp 36.5 C 06/26/22 09:00 Pulse 75 06/26/22 08:01 Resp 20 06/26/22 08:01 BP 141/98 H 06/26/22 08:01 Pulse Ox 96 06/26/22 04:00 Laboratory Results - last 24 hr 06/26/22 05:40 Sodium 139 Potassium 3.8 Chloride 105 Carbon Dioxide 26.0 Anion Gap 8.0 BUN 17 Creatinine 1.4 H Est GFR (CKD-EPI 2020) 56.48 Glucose 97 Calcium 8.8 Total Bilirubin 0.3 AST 23 ALT 30 Alkaline Phosphatase 61 Total Protein 6.4 Albumin 3.1 L Time Spent with Patient Time Spent with Patient: 25-34 minutes Time was spent: preparing to see the patient(eg.review tests), ordering medications,tests, procedures, indepentently interpreting results and counseling the patient
--- NOTE | 2022-06-26 16:07 | IN_ITS ---
Date of service: 06/26/22 Time of Service: 15:30 PT Notes Visit Reasons: V-Tach Inpatient Physical Therapy Evaluation Date: 06/26/22 Referring Doctor: Sarmad Kahn MD PT Orders: PT CONSULT: non-urgent evaluation Precautions: Standard, fall risk Patient Profile/Admitting Diagnosis: 61-year-old male admitted for management of ventricular tachycardia now NSR status post cardioversion, with other complicating factors of urinary retention and gout. PMHX: All Active Problems?(Updated 06/25/22 @ 14:43 by Sarmad Kahn MD) Cognitive impairment (Acute) Urinary retention (Acute) Ventricular tachycardia (Chronic) Gout (Acute) Ambulatory dysfunction (Acute) Osteoarthritis (Chronic) Arthritis, rheumatoid (Chronic) HTN (hypertension) (Chronic) Medical History? Cough Surgical History? History of bunionectomy of left great toe Social History/Home Situation: Lives in a private home with his , this is a two-story home with a bedroom on the second floor. He does have a bedroom on the first floor that he can utilize, as well as a first-floor bathroom. He has 5 steps to enter with a rail. He is retired. His is supportive. Current Functional Limitations: Requires assist and guarding for sit to stand and ambulation with RW, limited to 30 feet of walking. Premorbid level of function: Independent with ambulation of walker and furniture traveling within the home. Tolerated 45 minutes of activity without rest. No fall history Equipment Owned/DME: RW Subjective: Denies any pain, fatigues quickly Objective: General Observation: Sitting upright in chair, on the phone with his . He has telemetry, Castellanos, IV left cubital fossa Mental Status: Alert and oriented to person place and time Pain: 0/10 Vital Signs: BP 137/98, HR 80, O2 on room air 98 to 100% including w/activity ROM: Right Upper Extremity: Grossly about 145 degrees of shoulder elevation, elbow wrist digits WNL Left Upper Extremity: Grossly about 145 degrees of shoulder elevation, elbow wrist digits WNL Right Lower Extremity: Grossly WNL Left Lower Extremity: Grossly WNL Strength: Right Upper Extremity: Grossly 4+/5 throughout Left Upper Extremity: Grossly 4+/5 throughout Right Lower Extremity: Grossly 5/5 throughout Left Lower Extremity: Grossly 5/5 throughout Sensation: Intact Bed Mobility/Transfers: STS RW, CG x1 Stand to sit from RW, CG x1 Stand pivot, RW, CG x1 Nursing reporting getting out of bed, required mod assist of 2 Gait: RW x 30 ft, CG x1. Unsteady Balance: Static Sitting: Good Dynamic Sitting: Good Static Standing: Fair with RW Dynamic Standing: Poor Special Tests: Mobility Limitations Standardized Measure [facility] AM-PAC 6 clicks Basic Mobility Inpatient Short Form: 57.7% disability Informed Consent/Education: Patient instructed in purpose of PT consult and plan of care. Assessment: Patient is a 61 year old male referred to physical therapy services with the diagnosis of ventricular tachycardia now NSR status post cardioversion with complications of urinary retention and gout, admitted on 06/24/2022. Patient presents with clinical signs and symptoms consistent with generalized weakness and gait instability due to patient's cardiac condition, requiring PT services to improve overall strength, balance, and dynamic stability to perform functional tasks without risk of falling, and in hopes of returning to premorbid level of function for return home. Patient is assessed as a High 14622 complexity based on the following: History: See comorbidities Examination: Unsteady gait, poor balance, muscle fatigue, dependent on contact- guard for ambulation and functional transfers Presentation: Unstable Decision Making: Easy, impact 57% disability Goals: Goals X1 week 1. Supine-Sit close supervision 2. Sit-Supine close supervision 3. Sit-Stand close supervision to RW 4. Stand-Sit close supervision to RW 5. Bed-Chair close supervision RW 6. Chair-Bed close supervision RW 7. Gait 50 feet, close supervision RW 8. Stairs 5, contact-guard, 1 rail 9. Independent with home exercise program 10. Balance every dynamic ambulation with RW, requires contact-guard Plan of Care/Treatment Plan: 1-2x/day, 7 days/week x 1 week. Plan of care has been reviewed with the [facility] providing the service under Physical Therapy direction. Initiate Physical Therapy intervention for strengthening, bed mobility, transfers, gait, stairs, balance training, use of assistive device. DISCHARGE RECOMMENDATIONS: Home with home health service, with supervision of TREATMENT CODE/TIME: 30 minutes, [id number], 3:30 to 4 PM Documented with Dragon voice recognition software.
[2022-06-26] MEDS: Amiodarone 200 MG TAB PO (20:03)
[2022-06-26] MEDS: Senna TAB 1 TAB PO (20:03)
[2022-06-27] VITALS (8 sets, daily range): BP systolic 109–154; BP diastolic 75–96; PULSE 74–90; RESP 16–18; TEMP 36.7–37.4; O2SAT 95–98
[2022-06-27 08:42] LABS: Abs Immature Grans 0.03 10^3/uL (0.0-0.06); Absolute Basophil Count 0.03 10^3/uL (0.0-0.2); Absolute Lymphocyte Count 1.55 10^3/uL (1.2-3.4); Basophils % 0.5; Eosinophils % 3.2; HCT 45.2 % (40.0-50.0); HGB 15.1 g/dL (13.5-17.5); Immature Grans % 0.5; MCH 28.5 pg (27.0-33.0); MCHC 33.4 % (32.0-36.0); MCV 85 fL (80-95); MPV 9.4 fL (8.0-11.0); Monocytes % 9.7; Neutrophils % 61.1; Platelet Count 360 10^3/uL (130-400); RDW 13.4 % (11.8-14.1); RDW-SD 41.8 fL; WBC 6.21 10^3/uL (4.4-10.8)
[2022-06-27] MEDS: Lisinopril 20 MG TAB PO (08:46)
[2022-06-27] MEDS: Polyethylene Glycol 3350 17 GM PACKET PO (08:46)
[2022-06-27] MEDS: Cyclobenzaprine 10 MG TAB PO (08:47)
[2022-06-27] MEDS: Allopurinol 300 MG TAB PO (08:47)
[2022-06-27] MEDS: amLODIPine 10 MG TAB PO (08:47)
[2022-06-27] MEDS: Tamsulosin 0.4 MG CAPCR PO (08:47)
[2022-06-27] MEDS: Amiodarone 200 MG TAB PO ×2 (08:47→20:34)
[2022-06-27] MEDS: Hydroxychloroquine 200 MG TAB PO ×2 (08:47→20:34)
[2022-06-27] MEDS: Metoprolol CR 50 MG TABCR PO ×2 (08:47→20:34)
[2022-06-27 08:56] LABS: Anion Gap 6.4 mmol/L (3-11); BUN 26 mg/dL (7-18); CO2 24.6 mmol/L (21.0-32.0); CREATININE 1.8 mg/dL (0.70-1.30); Calcium 9.2 mg/dL (8.5-10.1); Chloride 103 mmol/L (98-107); Estimated GFR 41.77 (mL/min/1.73m2); Glucose 100 mg/dL (74-106); Magnesium 2.1 mg/dL (1.8-2.4); Sodium 134 mmol/L (136-145)
[2022-06-27] MEDS: LORazepam 1 MG TAB PO (11:18)
--- NOTE | 2022-06-27 12:07 | PT.INTREAT ---
PT Notes Visit Reasons: V-Tach Inpatient Physical Therapy Treatment Note [facility] Date: 06/27/22 SUBJECTIVE: Will states that he wants to go home. He seems to be very confused this am. OBJECTIVE: [] BED MOBILITY/TRANSFERS Sit-stand: CGA Stand-sit:SBA GAIT Assistive Device: FWW Weight bearing: full Assist: CGA Distance: approx 30' Deviation: initially wanted to carry walker but after a few steps and vc he was able to use it properly. THEREX: attempted. Unable to follow directions. Focused on being d/c'd ASSESSMENT: tolerated session well. Required a few steps to get himself acclimated, then did quite well. No LOB noted. PLAN: will try to incorporate ex at next session, continue functional mobility. TREATMENT CODE/TIME: 20 min. [id number]
[2022-06-27] MEDS: QUEtiapine 25 MG TAB PO (13:34)
[2022-06-27 14:02] LABS: Bilirubin Negative (Negative); Blood Moderate (Negative); Clarity Sl Cloudy (Clear); Glucose Negative (Negative); Ketones Trace mg/dL (Negative); Leukocyte Esterase Small (Negative); Nitrite Negative (Negative); Specific Gravity 1.025 (1.005-1.025); Urobilinogen 0.2 mg/dL (Up to 0.2); pH 5.5 (5-8)
[2022-06-27 14:15] LABS: Bacteria Few HPF (Negative); Crystals Negative HPF (Negative); Epithelial Cells Rare HPF (Negative); Mucus Trace (Negative)
[2022-06-27 14:16] LABS: C & S Indicated? Yes; Casts 0-2 Hyaline LPF (Negative)
--- NOTE | 2022-06-27 19:05 | PGE_ITS ---
Date of Service Date of service: 06/27/22 Time of Service: 17:45 Assessment and Plan Assessment and plan (1) Ventricular tachycardia: Status: Chronic Assessment and plan: Remains on NSR post cardioversion and load with amiodarone. Continue amiodarone. Continue telemetry as tolerated. Await palliative care consult. If behaviors controlled, would consider transfer to a tertiary care facility for further ischemic evaluation as well as a possible AICD placement. (2) Dementia with behavioral disturbance: Status: Acute Assessment and plan: Seroquel seems to do well for his behaviors. Additionally, presence of his has been very helpful. (3) Urinary retention: Status: Acute Assessment and plan: Due to BPH. Await urology consult. Continue flomax, nice catheter. (4) Gout: Status: Acute Assessment and plan: Continue allopurinol Qualifiers: Gout site: multiple sites Chronicity: chronic (5) HTN (hypertension): Status: Chronic Assessment and plan: Continue metoprolol, amlodipine, and lisinopril. Qualifiers: Hypertension type: essential hypertension Qualified Code(s): I10 - Essential (primary) hypertension (6) Arthritis, rheumatoid: Status: Chronic Assessment and plan: Continue hydroxychloroquine. Qualifiers: Rheumatoid arthritis location: multiple sites Rheumatoid factor presence: unspecified presence Qualified Code(s): M06.9 - Rheumatoid arthritis, unspecified (7) Discharge planning issues: Status: Acute Assessment and plan: Full code await palliative care. (8) DVT prophylaxis: Status: Acute Assessment and plan: SCDs due to hematuria? Consider heparin SC Subjective Subjective Interval history since last seen: Agitated today and not keeping his telemetry leads on. Lorazepam made him worse. Discussed with - she states he always gets agitated when he is away from her, but does well with her at the bedside. Nursing supervisor wheel shop/administration permitted for the to remain with the patient to help soothe him. Telemetry was getting put back on this evening. Up until then, no Vtach was observed, but the patient did not wear telemetry consistently. states that she would like him to remain full code and agrees to transfer for an evaluation for an AICD and ischemic workup. But we discussed how given the fact that he does not keep telemetry on, this may not be the right decision for him. She will think about it. For today, the focus is to get his behavior under control. Palliative care is consulted. Exam Narrative Exam Narrative: General: Middle-aged male who is resting in bed, arousable, somnolent, does not answer my questions or follow commands HEENT: eyes closed; seen earlier when awake - EOMI, MMM Heart: RRR Lungs: CTAB Abdomen: soft, nontender, nondistended Extremities: no edema BLEs. Objective Last Vital Signs Temp 37.4 C 06/27/22 15:02 Pulse 90 06/27/22 15:02 Resp 16 06/27/22 15:02 BP 119/84 06/27/22 15:02 Pulse Ox 95 06/27/22 15:02 Laboratory Results - last 24 hr 06/27/22 06/27/22 06/27/22 08:00 08:00 13:09 WBC 6.21 RBC 5.30 Hgb 15.1 Hct 45.2 MCV 85 D MCH 28.5 MCHC 33.4 RDW 13.4 Plt Count 360 MPV 9.4 Immature Gran % 0.5 Neutrophils % 61.1 Lymphocytes % 25.0 Monocytes % 9.7 Eosinophils % 3.2 Basophils % 0.5 Nucleated RBC % 0.0 Absolute Neutrophils 3.80 Absolute Lymphocytes 1.55 Absolute Monocytes 0.60 Absolute Eosinophils 0.20 Absolute Basophils 0.03 Sodium 134 L Potassium 4.0 Chloride 103 Carbon Dioxide 24.6 Anion Gap 6.4 BUN 26 H Creatinine 1.8 H Est GFR (CKD-EPI 2020) 41.77 Glucose 100 Calcium 9.2 Magnesium 2.1 Urine Color Yellow Urine Clarity Sl Cloudy Urine pH 5.5 Ur Specific [place] 1.025 Urine Protein 30 H Urine Ketones Trace H Urine Blood Moderate H Urine Nitrite Negative Urine Bilirubin Negative Urine Urobilinogen 0.2 Ur Leukocyte Esterase Small H Urine RBC 3-5 H Urine WBC 5-10 Ur Epithelial Cells Rare Urine Crystals Negative Urine Bacteria Few Urine Casts 0-2 Hyaline Urine Mucus Trace Ur Culture Indicated? Yes Urine Glucose Negative Time Spent with Patient Time Spent with Patient: 35-49 minutes Time was spent: preparing to see the patient(eg.review tests), obtaining and/or reviewing separately otained hiistory, ordering medications,tests, procedures, referring, communicating with other health director of primary care, indepentently interpreting results, counseling the patient and care coordination
[2022-06-28] VITALS (9 sets, daily range): BP systolic 102–129; BP diastolic 69–84; PULSE 61–79; RESP 16–19; TEMP 35.8–36.6; O2SAT 96–98
[2022-06-28 06:57] LABS: Abs Immature Grans 0.04 10^3/uL (0.0-0.06); Absolute Basophil Count 0.02 10^3/uL (0.0-0.2); Absolute Eosinophil Count 0.22 10^3/uL (0.0-0.7); Absolute Lymphocyte Count 1.89 10^3/uL (1.2-3.4); Absolute Monocyte Count 0.77 10^3/uL (0.1-0.8); Absolute Neutrophil Count 4.13 10^3/uL (1.2-6.7); Basophils % 0.3; Eosinophils % 3.1; HCT 40.2 % (40.0-50.0); HGB 13.5 g/dL (13.5-17.5); Immature Grans % 0.6; Lymphocytes % 26.7; MCH 29.2 pg (27.0-33.0); MCHC 33.6 % (32.0-36.0); MCV 87 fL (80-95); MPV 9.5 fL (8.0-11.0); Monocytes % 10.9; Neutrophils % 58.4; Platelet Count 303 10^3/uL (130-400); RBC 4.63 10^6/uL (4.36-5.78); RDW 13.7 % (11.8-14.1); RDW-SD 43.3 fL; WBC 7.07 10^3/uL (4.4-10.8)
[2022-06-28 07:16] LABS: Anion Gap 8.9 mmol/L (3-11); BUN 34 mg/dL (7-18); CO2 25.1 mmol/L (21.0-32.0); Calcium 8.6 mg/dL (8.5-10.1); Chloride 104 mmol/L (98-107); Estimated GFR 36.81 (mL/min/1.73m2); Glucose 84 mg/dL (74-106); Magnesium 2.1 mg/dL (1.8-2.4); Potassium 4.2 mmol/L (3.5-5.1); Sodium 138 mmol/L (136-145)
--- NOTE | 2022-06-28 19:03 | W.PM.PROGNOT ---
Date of Service Date of service: 06/28/22 Time of Service: 10:45 Assessment and Plan Assessment and plan (1) Ventricular tachycardia: Status: Chronic Assessment and plan: Remains on NSR post cardioversion and load with amiodarone. Continue amiodarone. Continue telemetry as tolerated. Given new information re provigil, I wonder if that's not what caused his Vtach. This would be a diagnosis of exclusion, but I hesitate to restart it without verifying that possibility with pharmacy. Await palliative care consult to help make decision re transfer. (2) Dementia with behavioral disturbance: Status: Acute Assessment and plan: Seroquel seems to do well for his behaviors. Additionally, presence of his has been very helpful. I am holding off on restarting provigil until I have a conversation with pharmacy about the possibility that it could have contributed to vtach. (3) Urinary retention: Status: Acute Assessment and plan: Due to BPH. Await urology consult. Continue flomax, nice catheter. (4) Gout: Status: Acute Assessment and plan: Continue allopurinol Qualifiers: Gout site: multiple sites Chronicity: chronic (5) HTN (hypertension): Status: Chronic Assessment and plan: Continue metoprolol, amlodipine, and lisinopril. Qualifiers: Hypertension type: essential hypertension Qualified Code(s): I10 - Essential (primary) hypertension (6) Arthritis, rheumatoid: Status: Chronic Assessment and plan: Continue hydroxychloroquine. Qualifiers: Rheumatoid arthritis location: multiple sites Rheumatoid factor presence: unspecified presence Qualified Code(s): M06.9 - Rheumatoid arthritis, unspecified (7) Discharge planning issues: Status: Acute Assessment and plan: Full code await palliative care. (8) DVT prophylaxis: Status: Acute Assessment and plan: SCDs due to hematuria? Start SC heparin. Subjective Subjective Interval history since last seen: Mr Quezada states that he is feeling well. He denies dizziness, chest pain,shortness of breath, nausea. His behaviors have been much better controlled since arrival of his . She states that modafinil is one of his medications and that he takes it at home and that it helps. When I had a conversation with the patient as to whether or not he would be willing to be transferred to have something done on his heart (and he was able to have this conversation with me today in a very reasonable way), he stated that he would like to think about it and make that decision when he is more clear. I owe it to this pearl (pointing at himself). We agreed that he would wait until tomorrow. Exam Narrative Exam Narrative: General: Middle-aged male who is awake in bed, A&Ox2 (thinks it's 2021, knows the president is Cristina), HEENT: EOMI, MMM Heart: RRR Lungs: CTAB Abdomen: soft, nontender, nondistended Extremities: no edema BLEs. Objective Last Vital Signs Temp 36.6 C 06/28/22 15:31 Pulse 74 06/28/22 15:31 Resp 17 06/28/22 15:31 BP 110/78 06/28/22 15:31 Pulse Ox 97 06/28/22 15:31 Laboratory Results - last 24 hr 06/28/22 06/28/22 05:46 05:46 WBC 7.07 RBC 4.63 Hgb 13.5 Hct 40.2 MCV 87 MCH 29.2 MCHC 33.6 RDW 13.7 Plt Count 303 MPV 9.5 Immature Gran % 0.6 Neutrophils % 58.4 Lymphocytes % 26.7 Monocytes % 10.9 Eosinophils % 3.1 Basophils % 0.3 Nucleated RBC % 0.0 Absolute Neutrophils 4.13 Absolute Lymphocytes 1.89 Absolute Monocytes 0.77 Absolute Eosinophils 0.22 Absolute Basophils 0.02 Sodium 138 Potassium 4.2 Chloride 104 Carbon Dioxide 25.1 Anion Gap 8.9 BUN 34 H Creatinine 2.0 H Est GFR (CKD-EPI 2020) 36.81 Glucose 84 Calcium 8.6 Magnesium 2.1 Time Spent with Patient Time Spent with Patient: 35-49 minutes Time was spent: preparing to see the patient(eg.review tests), obtaining and/or reviewing separately otained hiistory, ordering medications,tests, procedures, referring, communicating with other health patient care provider, indepentently interpreting results, counseling the patient and care coordination
[2022-06-28] MEDS: Hydroxychloroquine 200 MG TAB PO (19:39)
[2022-06-28] MEDS: Metoprolol CR 50 MG TABCR PO (19:39)
[2022-06-28] MEDS: Heparin 5,000 UNITS/ML VIAL 5000 UNITS SC (19:39)
[2022-06-28] MEDS: Amiodarone 200 MG TAB PO (19:40)
[2022-06-29] VITALS (7 sets, daily range): BP systolic 129–158; BP diastolic 83–100; PULSE 67–81; RESP 14–18; TEMP 36.1–36.5; O2SAT 97–98
[2022-06-29] MEDS: Heparin 5,000 UNITS/ML VIAL 5000 UNITS SC ×3 (04:11→19:46)
[2022-06-29 07:11] LABS: Basophils % 0.7; Eosinophils % 5.8; HCT 41.6 % (40.0-50.0); HGB 13.9 g/dL (13.5-17.5); Immature Grans % 0.5; Lymphocytes % 30.1; MCH 29.1 pg (27.0-33.0); MCHC 33.4 % (32.0-36.0); MCV 87 fL (80-95); MPV 9.7 fL (8.0-11.0); Monocytes % 8.3; Neutrophils % 54.6; Platelet Count 280 10^3/uL (130-400); RBC 4.77 10^6/uL (4.36-5.78); RDW 13.7 % (11.8-14.1); RDW-SD 43.5 fL; WBC 6.02 10^3/uL (4.4-10.8)
[2022-06-29 07:12] LABS: Abs Immature Grans 0.03 10^3/uL (0.0-0.06); Absolute Basophil Count 0.04 10^3/uL (0.0-0.2); Absolute Eosinophil Count 0.35 10^3/uL (0.0-0.7); Absolute Lymphocyte Count 1.81 10^3/uL (1.2-3.4); Absolute Neutrophil Count 3.29 10^3/uL (1.2-6.7)
[2022-06-29 07:37] LABS: Anion Gap 10.2 mmol/L (3-11); BUN 35 mg/dL (7-18); CO2 25.8 mmol/L (21.0-32.0); CREATININE 1.9 mg/dL (0.70-1.30); Calcium 8.7 mg/dL (8.5-10.1); Chloride 104 mmol/L (98-107); Estimated GFR 39.15 (mL/min/1.73m2); Glucose 135 mg/dL (74-106); Magnesium 2.2 mg/dL (1.8-2.4); Potassium 3.8 mmol/L (3.5-5.1); Sodium 140 mmol/L (136-145)
--- NOTE | 2022-06-29 08:31 | PT.INTREAT ---
Date of service: 06/28/22 PT Notes Visit Reasons: V-Tach Inpatient Physical Therapy Treatment Note [facility] Date: 06/28/22 SUBJECTIVE:Will appears to have a much clear head today. He is alert and orientated. visiting. OBJECTIVE: [] BED MOBILITY/TRANSFERS Rolling L/R: SBA Supine-sit: CGA/min A Sit-stand: min A of 1 Stand-sit:SBA Bed-Chair: CGA GAIT Assistive Device: FWW Weight bearing: full Assist: CGA of 1 Distance: approx 65' Deviation: cues for longer strides Ther ex: performed AP x10, LAQ x10 and standing hip flex x10. ASSESSMENT: tolerated session well. He tires quickly, and does not like his to be out of sight too long. PLAN: will continue to progress his strength and endurance as well as functional mobility to tolerance. TREATMENT CODE/TIME: 25 min. [id number].
--- NOTE | 2022-06-29 09:45 | PDOC.CMPRO ---
- If Service Date Differs Date of service: 06/29/22 Time of Service: 09:45 Care Management Progress Note S/O:Kamran was sitting up in bed visiting with Chavez when CM met with him. She has been staying with him as he becomes agitated at times when she is not there. Dr. Ricks discussed the recommended plan of care to Kamran and Chavez which would include [place] [facility] [place] with possible stent placement. AICD may also be considered. They verbalized that they were unable to make a decision at this time without more information. A Palliative Care consult is scheduled for tomorrow. Pending the outcome, Kamran will likely be discharged or transferred [place] [facility] [place] Kamran stated that he feels if he could talk to a rn stars, he would get the answers he feels he needs to make the decision. CM coordinated taxi service for Chavez to be able to go home for a couple of hours to shower and change as she does not have transportation. [place] [facility] [place] a [place] and Chavez and KETURAH are working on a possible plan to enable her to make the trip. A: Kamran is a 61 year old man admitted on 06/24/22 with ventricular tachycardia P:Anticipate Kamran will discharge home with no new services or transfer [place] [facility] [place] work[place] and treatment. He will follow up with Cardiology and his PCP and plan of care as prescribed. CM will offer support to Kamran and his discharge planning needs.
[2022-06-29] MEDS: Amiodarone 200 MG TAB PO ×2 (10:25→19:46)
[2022-06-29] MEDS: Allopurinol 300 MG TAB PO (10:25)
[2022-06-29] MEDS: Metoprolol CR 50 MG TABCR PO ×2 (10:26→19:46)
[2022-06-29] MEDS: Hydroxychloroquine 200 MG TAB PO ×2 (10:26→19:46)
[2022-06-29] MEDS: Normal Saline Flush 10 ML SYR IVP (10:26)
[2022-06-29] MEDS: Tamsulosin 0.4 MG CAPCR PO (10:26)
[2022-06-29] MEDS: Cyclobenzaprine 10 MG TAB PO (10:26)
--- NOTE | 2022-06-29 11:45 | RT.EKG_ITS ---
APPROVED REPORT Exam: Resting ECG Reason for Exam: post Vtach, NSTEMI Patient Location: I HR:71 bpm ECG Measurements Heart Rate 71 AXIS DC 190 P 19 QRSd 112 QRS -36 QT 424 T 100 QTc 461 Conclusion Sinus rhythm...normal P axis, V-rate 50- 99 Abnormal R-wave progression, early transition...QRS area>0 in V2 LVH with IVCD, LAD and secondary repol abnrm...multi-criteria, wQRSd, abnr ST-T
--- NOTE | 2022-06-29 12:06 | PT.INTREAT ---
Date of service: 06/29/22 Time of Service: 10:06 PT Notes Visit Reasons: V-Tach Inpatient Physical Therapy Treatment Note [facility] Date: 06/29/2022 PRECAUTIONS: Fall, activity as tolerated, intermittent confusion SUBJECTIVE: Will is pleasant and agreeable to participating in PT this morning. He reports that he is feeling much better compared to when he was admitted. OBJECTIVE: PAIN: No c/o pain BED MOBILITY/TRANSFERS Supine-sit: SBA Sit-stand: CGA with cueing for safety Stand-sit: CGA with cueing for safety GAIT Assistive Device: FWW Weight bearing: Full Assist: CGA Distance: 80' in a.m.; 60' in p.m. Deviation: Cueing for FWW mechanics for safety, adjusted height of FWW for more appropriate fit, slow pacing THEREX: Patient declined TOILETING: Patient toileted with assist ASSESSMENT: Patient tolerated session well, without complaint. He was able to tolerate a slight progression in gait distance with FWW support and CGA. He requires cueing for FWW mechanics throughout for safety with gait training. Patient would benefit from continued global strengthening including gait and transfer training for improved mobility and ability to perform daily functional tasks. PLAN: Continue with global strengthening, gait and transfer training, and addition of stair training. TREATMENT CODE/TIME: Session 1: 24 minutes; [id number] x2 (10:06) Session 2: 15 minutes; [id number] (14:42)
--- NOTE | 2022-06-29 19:24 | W.PM.PROGNOT ---
Date of Service Date of service: 06/29/22 Time of Service: 17:30 Assessment and Plan Assessment and plan (1) Ventricular tachycardia: Status: Chronic Assessment and plan: Remains on NSR post cardioversion and load with amiodarone. Continue amiodarone + BB. Continue telemetry as tolerated. Discussed with [facility] cardiology: the patient is accepted to [facility] for ischemic and EP evaluations, given that he also had elevated troponin. Started on aspirin and statin in addition to amiodarone + BB. The patient is not on provigil but on prevagen, which should not have caused the tachycardia. (2) Dementia with behavioral disturbance: Status: Chronic Assessment and plan: Seroquel seems to do well for his behaviors. Additionally, presence of his has been very helpful. Patient is not on provigil at home - I have d/c'ed this from his outpatient med list. He was on prevagen, which should be ok to continue taking. (3) Urinary retention: Status: Acute Assessment and plan: Due to BPH. Await urology consult. Continue flomax, nice catheter. (4) Gout: Status: Acute Assessment and plan: Continue allopurinol Qualifiers: Gout site: multiple sites Chronicity: chronic (5) HTN (hypertension): Status: Chronic Assessment and plan: Continue metoprolol, amlodipine, and lisinopril. Qualifiers: Hypertension type: essential hypertension Qualified Code(s): I10 - Essential (primary) hypertension (6) Arthritis, rheumatoid: Status: Chronic Assessment and plan: Continue hydroxychloroquine. Qualifiers: Rheumatoid arthritis location: multiple sites Rheumatoid factor presence: unspecified presence Qualified Code(s): M06.9 - Rheumatoid arthritis, unspecified (7) Discharge planning issues: Status: Acute Assessment and plan: Full code await palliative care (planned for tomorrow) Accepted at [facility] w/ bed availability pending for tomorrow. Accepting MD: Dr Darling. (8) DVT prophylaxis: Status: Acute Assessment and plan: SCDs due to hematuria? SC heparin. Subjective Subjective Interval history since last seen: After several discussions today, the patient and his ended up making a decision to go ahead with the transfer for further cardiac workup and possible AICD. The patient was accepted in transfer to [facility] (accepting MD Dr Darling) with bed availability expected tomorrow. The patient states he had a short episode of shortness of breath today - his states that he sometimes breathes like that at night too. This was self-limited with stable VSS. The patient denied dizziness, chest pain, shortness of breath, nausea. Exam Narrative Exam Narrative: General: Middle-aged male who is awake in bed, A&Ox2 , calm, cooperative HEENT: EOMI, MMM Heart: RRR Lungs: CTAB Abdomen: soft, nontender, nondistended Extremities: no edema BLEs. Objective Last Vital Signs Temp 36.2 C L 06/29/22 15:17 Pulse 79 06/29/22 15:32 Resp 18 06/29/22 15:17 BP 142/90 H 06/29/22 15:17 Pulse Ox 97 06/29/22 15:17 Laboratory Results - last 24 hr 06/29/22 06/29/22 06:00 06:00 WBC 6.02 RBC 4.77 Hgb 13.9 Hct 41.6 MCV 87 MCH 29.1 MCHC 33.4 RDW 13.7 Plt Count 280 MPV 9.7 Immature Gran % 0.5 Neutrophils % 54.6 Lymphocytes % 30.1 Monocytes % 8.3 Eosinophils % 5.8 Basophils % 0.7 Nucleated RBC % 0.0 Absolute Neutrophils 3.29 Absolute Lymphocytes 1.81 Absolute Monocytes 0.50 Absolute Eosinophils 0.35 Absolute Basophils 0.04 Sodium 140 Potassium 3.8 Chloride 104 Carbon Dioxide 25.8 Anion Gap 10.2 BUN 35 H Creatinine 1.9 H Est GFR (CKD-EPI 2020) 39.15 Glucose 135 H Calcium 8.7 Magnesium 2.2 Time Spent with Patient Time Spent with Patient: 35-49 minutes Time was spent: preparing to see the patient(eg.review tests), obtaining and/or reviewing separately otained hiistory, ordering medications,tests, procedures, referring, communicating with other health medicare coordinator, indepentently interpreting results, counseling the patient and care coordination
[2022-06-29] MEDS: Atorvastatin 40 MG TAB PO (19:46)
[2022-06-29] MEDS: Aspirin E.C. 81 MG TABEC PO (19:47)
--- NOTE | 2022-06-29 20:01 | DSE_ITS ---
Date of service: 06/29/22 Time of Service: 20:01 DS: Diagnosis Discharge Diagnosis (1) Ventricular tachycardia: Status: Chronic (2) Elevated troponin: Status: Acute (3) Dementia with behavioral disturbance: Status: Chronic (4) Urinary retention: Status: Acute (5) Gout: Status: Acute (6) HTN (hypertension): Status: Chronic (7) Arthritis, rheumatoid: Status: Chronic (8) CKD (chronic kidney disease), stage III: Status: Acute Discharge Plan Disposition Patient Disposition: Transfer-Acute Inpatient Care Specific Acute Inpt Facility: [facility] Condition: Fair Discharge Details Reason For Visit: V-Tach Admit Date/Time: 06/24/22 14:45 Admit Provider: Sarmad Kahn Attending Provider: Sarmad Kahn Primary Care Provider: Viridiana Torres [facility] Course Hospital Course: Mr Quezada is a 61 year old male with PMHx of HTN, RA, CKD III, ambulatory dysfunction (wheelchair bound), dementia w/ behavioral disturbance, who was admitted to [facility] ICU on 06/24/22 after having been found unresponsive in monomorphic Vtach and being successful cardioverted by EMS to NSR. Evidently, the patient did report palpitations to the prior to becoming unresponsive. He did not have chest pain, evidence of ST elevation, but his troponin I did go up to 526 and 439 from <50 ng/L when he first presented. There were no ischemic changed on the EKG. He was started on amiodarone and metoprolol and has remained in NSR with occasional PVCs since. His echocardiogram revealed LVEF of 50-55% with no regional wall motion abnormalities and no significant valvular disease. The patient was transferred out of the ICU on 06/26/21. Cardiology evaluated the patient and recommended coronary angiography, whch is not available at our facility. The patient would also benefit from an EP evaluation given Vtach. The patient had some reservations about transfer/aggressive workup initially, but after several conversations the decision was finally made together with his to go ahead and transfer. He is started on aspirin and statin per [facility] cardiology recommendations. The patient does have a diagnosis of cognitive impairment and showed signs of sundowning and behavioral disturbance while in our facility. 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 He cannot make his healthcare decisions independently. Additionally, he was noted to have urinary retention and required placement of a nice catheter. He was evaluated by urology, initiated on tamsulosin, and should undergo a voiding trial prior to discharge home. Upon discussion with [facility] cardiology team, the patient was accepted in transfer under the care of Dr Darling. He is hemodynamically stable for transfer and is agreeable to transfer. Care for patient as well as completion of his discharge summary on day of discharge took 60 minutes. Please, look for MAR for list of inpatient medications. The list of medications below reflects his outpatient prescriptions. Home Meds and New Rx's Prescriptions: Continued amlodipine 10 mg Tablet 10 mg PO DAILY Qty: 30 0RF allopurinol 300 mg Tablet 300 mg PO DAILY Qty: 30 0RF furosemide 20 mg Tablet 20 mg PO DAILY Qty: 30 0RF hydroxychloroquine 200 mg tablet 200 mg PO BID Qty: 30 0RF lisinopril 40 mg tablet 20 mg PO DAILY Qty: 30 0RF Patient Comments: take 1 tablet by mouth once daily metoprolol tartrate 25 mg Tablet 25 mg PO BID Qty: 60 0RF cyclobenzaprine 10 mg tablet 10 mg PO 1XD Patient Comments: TAKE ONE TABLET BY MOUTH THREE TIMES A DAY NEEDED Discharge Instructions Referrals: Noel Hernández MD [ [facility] STAFF PHYSICIAN] - Linda Romero MD [ [facility] STAFF PHYSICIAN] - Viridiana Torres [Primary Care Provider] - Activity:: Activity as Tolerated Equipment/Supplies:: No Equipment Needed Diet:: As Tolerated Discharge Orders Discharge Orders: Discharge Order (Routine); Ordered 06/29/22 Ordered By: Abena Ricks DS: Summary Time Spent with Patient providing and/or coordinating discharge services: Greater than 30 minutes Status at Discharge Functional status at discharge: wheelchair bound Overall status at discharge: patient is progressing back to baseline Mental Status: mental status grossly normal (A&Ox2, calm and cooperative with at bedside) Speech and Movement: speech and movement normal Mood: congruent mood Affect: normal affect Exam Narrative Exam Narrative: General: Middle-aged male who is awake in bed, A&Ox2 , calm, cooperative HEENT: EOMI, MMM Heart: RRR Lungs: CTAB Abdomen: soft, nontender, nondistended Extremities: no edema BLEs. Psych Mental Status: mental status grossly normal (A&Ox2, calm and cooperative with at bedside) Speech and Movement: speech and movement normal Mood: congruent mood Affect: normal affect DS: Data Vitals/I&O Vitals and I&O: Vital Signs Temperature 36.4 C L 06/29/22 19:30 Temperature Source Tympanic 06/29/22 19:30 Pulse 81 06/29/22 19:30 Pulse Rhythm Regular 06/29/22 17:05 Pulse 77 06/26/22 20:00 Respiratory Rate 14 06/29/22 19:30 Respiratory Effort Normal 06/29/22 17:05 Respiratory Depth Normal 06/29/22 17:05 Respiratory Pattern Normal 06/29/22 17:05 Blood Pressure 158/100 H 06/29/22 19:30 Blood Pressure Mean 112 06/26/22 18:03 Blood Pressure Position Supine 06/26/22 21:36 Pulse Oximetry 98 06/29/22 19:30 Oxygen Delivery Method Room Air 06/29/22 19:30 Oxygen Flow Rate 0 06/29/22 19:30 Pain Level 0 06/29/22 19:30 Comment RN notified 06/26/22 20:00 Intake & Output 06/28/22 06/29/22 06/29/22 23:59 11:59 23:59 Intake Total 900 / 900 360 / 360 Output Total 500 / 1525 2100 / 3825 1725 / 3825 Balance 400 / -625 -2100 / -3465 -1365 / -3465 Weight 101.73 kg Intake: Oral 900 / 900 360 / 360 Output: Urine 500 / 1525 2100 / 3825 1725 / 3825 Other: Urine Color Yellow Yellow Pale Yellow Urine Appearance Clear Clear Clear Stool Size Moderate Moderate Stool Characteristics Soft Soft Formed Formed Data Completed and Pending Completed studies during hospitalization [Text1]: CXR 06/24/22: No acute pulmonary findings. Echo 06/25/22; Normal left ventricular wall thickness and chamber size.? Estimated ejection fraction is 50 to 55%.? There are no segmental wall motion abnormalities Normal right ventricular size and systolic function Both atria are normal in size Aortic valve is mildly sclerotic and trileaflet without stenosis or regurgitation Normal mitral valve with mild regurgitation Labs on day of discharge: Labs from last 24 hours 06/29/22 06/29/22 06:00 06:00 WBC 6.02 RBC 4.77 Hgb 13.9 Hct 41.6 MCV 87 MCH 29.1 MCHC 33.4 RDW 13.7 Plt Count 280 MPV 9.7 Immature Gran % 0.5 Neutrophils % 54.6 Lymphocytes % 30.1 Monocytes % 8.3 Eosinophils % 5.8 Basophils % 0.7 Nucleated RBC % 0.0 Absolute Neutrophils 3.29 Absolute Lymphocytes 1.81 Absolute Monocytes 0.50 Absolute Eosinophils 0.35 Absolute Basophils 0.04 Sodium 140 Potassium 3.8 Chloride 104 Carbon Dioxide 25.8 Anion Gap 10.2 BUN 35 H Creatinine 1.9 H Est GFR (CKD-EPI 2020) 39.15 Glucose 135 H Calcium 8.7 Magnesium 2.2 PFSH All Active Problems (Updated 06/29/22 @ 20:20 by Abena Ricks MD) CKD (chronic kidney disease), stage III (Acute) Elevated troponin (Acute) Dementia with behavioral disturbance (Chronic) DVT prophylaxis (Acute) Discharge planning issues (Acute) Cognitive impairment (Acute) Urinary retention (Acute) Ventricular tachycardia (Chronic) Gout (Acute) Ambulatory dysfunction (Acute) Osteoarthritis (Chronic) Arthritis, rheumatoid (Chronic) HTN (hypertension) (Chronic) Medical History Cough Surgical History History of bunionectomy of left great toe Social History Smoking/Tobacco Use Status: Former Tobacco Use Smoking risk assessment performed?: Yes Alcohol Intake: former Drug use: Never Substance use type: does not use Do you feel safe at home: Yes Do you feel safe in your relationship?: Yes Time Spent with Patient Time Spent with Patient: 45-69 minutes Time was spent: preparing to see the patient(eg.review tests), obtaining and/or reviewing separately otained hiistory, ordering medications,tests, procedures, referring, communicating with other health care program director, indepentently interpreting results, counseling the patient and care coordination
--- NOTE | 2022-06-30 15:11 | INDS_ITS ---
PT Notes Visit Reasons: V-Tach Inpatient Physical Therapy Discharge Summary Date: 06/30/22 Dates of Service: 06/26/22 through 06/29/22 This is a clinical summary of care provided for the duration of dates listed above. No charge was made in the completion of this documentation. Referring Doctor:Yifan Kahn MD PT Orders: PT CONSULT: non-urgent evaluation Precautions: Standard, fall risk Patient Profile/Admitting Diagnosis:?61-year-old male admitted for management of ventricular tachycardia now NSR status post cardioversion, with other complicating factors of urinary retention and gout. Assessment: Patient transferred to [facility] for continued cardiac management. He was able to ambulate 80 feet with FWW. Was feeling better overall, still some mobility challenges. Goals: Goals X1 week 1. Supine-Sit close supervision - SBA 2. Sit-Supine close supervision - SBA 3. Sit-Stand close supervision to RW - CGA with cues 4. Stand-Sit close supervision to RW - CGA with cues 5. Bed-Chair close supervision RW - CGA with cues 6. Chair-Bed close supervision RW - CGA with cues 7. Gait 50 feet, close supervision RW - Met, up to 80 feet 8. Stairs 5, contact-guard, 1 rail - Not tested 9. Independent with home exercise program - None assigned TREATMENT CODE/TIME: No charge Thank you for the opportunity to participate in the care of this patient.
== END 2022-06-29 21:15 | disposition short-term general hospital (02) | DRG 309 ==
LOC: ER 15:07 → ICU 15:54 → MS 06-26 23:02
PROVIDERS: Internal Medicine; Admitting Provider Family Medicine; Emergency Provider Student in an Organized Health Care Education/Training Program; PCP Physician Assistant; Visit Provider Family Medicine
DX: I47.20 Ventricular tachycardia, unspecified (principal); F03.918 Unspecified dementia, unspecified severity, with other behavioral disturbance; R33.9 Retention of urine, unspecified; M10.9 Gout, unspecified; M06.9 Rheumatoid arthritis, unspecified; N18.30 Chronic kidney disease, stage 3 unspecified; I12.9 Hypertensive chronic kidney disease with stage 1 through stage 4 chronic kidney disease, or unspecified chronic kidney disease; R26.2 Difficulty in walking, not elsewhere classified; Z87.891 Personal history of nicotine dependence; N40.1 Benign prostatic hyperplasia with lower urinary tract symptoms
CPT/HCPCS: 36415; 36416; 80048; 80053; 87635; 93005; 93306; 97163; 97530; 99221; 99222; 99285; 71045; 81003; 81015; 83735; 84439; 84443; 84484; 85025; 87086; 93010; 99223; 99232; 99239; J1630; J1644; J3490

== ENCOUNTER → 2022-06-25 07:31 | Outpatient (BNVA) | payer MEDICARE, MEDICAID, SELFPAY | PROVIDERS: PCP Nurse Practitioner Family; Referring Provider Nurse Practitioner Family; Visit Provider Internal Medicine Cardiovascular Disease ==

== ENCOUNTER → 2022-06-25 11:30 | Outpatient (BNVA) | payer MEDICARE, MEDICAID, SELFPAY | PROVIDERS: PCP Nurse Practitioner Family; Referring Provider Nurse Practitioner Family; Visit Provider Urology ==

== ENCOUNTER 2022-12-25 09:45 | Outpatient (REF) | payer MEDICARE, MEDICAID, SELFPAY ==
[2022-12-25 16:18] LABS: HGB 14.7 g/dL (13.5-17.5); MCH 29.2 pg (27.0-33.0); MCHC 33.4 % (32.0-36.0); MCV 88 fL (80-95); MPV 10.1 fL (8.0-11.0); Platelet Count 215 10^3/uL (130-400); RBC 5.03 10^6/uL (4.36-5.78); RDW 13.1 % (11.8-14.1); RDW-SD 40.8 fL; WBC 4.71 10^3/uL (4.4-10.8)
[2022-12-25 17:25] LABS: Anion Gap 10.1 mmol/L (3-11); BUN 21 mg/dL (7-18); CO2 23.9 mmol/L (21.0-32.0); CREATININE 1.4 mg/dL (0.70-1.30); Calcium 8.5 mg/dL (8.5-10.1); Calculated LDL 31 mg/dL (<100); Chloride 107 mmol/L (98-107); Cholesterol 75 mg/dL (<200); Estimated GFR 56.13 (mL/min/1.73m2); Glucose 84 mg/dL (74-106); HDL Cholesterol 39 mg/dL (40-60); Potassium 4.1 mmol/L (3.5-5.1); Sodium 141 mmol/L (136-145); Triglyceride 25 mg/dL (<150)
== END 2022-12-25 09:46 | disposition home or self-care (01) ==
LOC: NCHCN 09:45
PROVIDERS: PCP Nurse Practitioner Family; Visit Provider Physician Assistant
DX: I10 Essential (primary) hypertension (principal)
CPT/HCPCS: 80048; 80061; 85027

== ENCOUNTER 2023-08-18 15:00 | Outpatient (REF) | payer MEDICARE, SELFPAY ==
[2023-08-18 16:15] LABS: HCT 44.2 % (40.0-50.0); HGB 14.5 g/dL (13.5-17.5); MCH 29.2 pg (27.0-33.0); MCHC 32.8 % (32.0-36.0); MCV 89 fL (80-95); MPV 10.5 fL (8.0-11.0); Platelet Count 247 10^3/uL (130-400); RBC 4.96 10^6/uL (4.36-5.78); RDW 13.3 % (11.8-14.1); RDW-SD 43.7 fL; WBC 4.99 10^3/uL (4.4-10.8)
[2023-08-18 17:18] LABS: ALT 39 U/L (16-63); AST 23 U/L (15-37); Albumin 3.7 g/dL (3.4-5.0); Alkaline Phosphatase 86 U/L (46-116); Anion Gap 11.4 mmol/L (3-11); BUN 21 mg/dL (7-18); CO2 27.6 mmol/L (21.0-32.0); Calcium 9.1 mg/dL (8.5-10.1); Chloride 106 mmol/L (98-107); Cholesterol 101 mg/dL (<200); Glucose 78 mg/dL (74-106); Potassium 4.2 mmol/L (3.5-5.1); Sodium 145 mmol/L (136-145); Total Protein 6.9 g/dL (6.4-8.2); Triglyceride 31 mg/dL (<150)
[2023-08-18 17:54] LABS: Bilirubin, Total 0.5 mg/dL (0.2-1.0); CREATININE 1.2 mg/dL (0.70-1.30); Calculated LDL 47 mg/dL (<100); Estimated GFR 67.11 (mL/min/1.73m2); HDL Cholesterol 48 mg/dL (40-60)
== END 2023-08-18 15:01 | disposition home or self-care (01) ==
LOC: NCHCN 15:00
PROVIDERS: PCP Nurse Practitioner Family; Visit Provider Physician Assistant
DX: I10 Essential (primary) hypertension (principal); E78.5 Hyperlipidemia, unspecified
CPT/HCPCS: 80053; 80061; 85027

== ENCOUNTER 2024-09-05 13:12 | Outpatient (REF) | payer MEDICARE, SELFPAY ==
[2024-09-05 17:29] LABS: HCT 44.1 % (40.0-50.0); HGB 14.9 g/dL (13.5-17.5); MCH 29.6 pg (27.0-33.0); MCHC 33.8 % (32.0-36.0); MCV 88 fL (80-95); MPV 10.1 fL (8.0-11.0); Platelet Count 260 10^3/uL (130-400); RBC 5.03 10^6/uL (4.36-5.78); RDW 13.3 % (11.8-14.1); RDW-SD 42.3 fL; WBC 3.81 10^3/uL (4.4-10.8)
[2024-09-05 17:50] LABS: ALT 25 U/L (16-63); AST 19 U/L (15-37); Albumin 3.6 g/dL (3.4-5.0); Alkaline Phosphatase 69 U/L (46-116); Anion Gap 9.1 mmol/L (3-11); BUN 25 mg/dL (7-18); Bilirubin, Total 0.5 mg/dL (0.2-1.0); CO2 25.9 mmol/L (21.0-32.0); CREATININE 1.5 mg/dL (0.70-1.30); Calcium 9.2 mg/dL (8.5-10.1); Calculated LDL 116 mg/dL (<100); Chloride 106 mmol/L (98-107); Cholesterol 165 mg/dL (<200); Estimated GFR 51.03 (mL/min/1.73m2); Glucose 91 mg/dL (74-106); HDL Cholesterol 36 mg/dL (>or=40); Potassium 3.9 mmol/L (3.5-5.1); Sodium 141 mmol/L (136-145); Triglyceride 69 mg/dL (<150)
== END 2024-09-05 13:13 | disposition home or self-care (01) ==
LOC: NCHCN 13:12
PROVIDERS: PCP Nurse Practitioner Family; Visit Provider Physician Assistant
DX: I10 Essential (primary) hypertension (principal); I25.10 Atherosclerotic heart disease of native coronary artery without angina pectoris
CPT/HCPCS: 80053; 80061; 85027

== ENCOUNTER 2024-10-06 09:37 | Emergency (ER) | payer MEDICARE, SELFPAY ==
[2024-10-06] VITALS (20 sets, daily range): BP systolic 163–184; BP diastolic 87–125; PULSE 56–78; RESP 12–23; TEMP 37; O2SAT 97–99
--- NOTE | 2024-10-06 09:30 | RT.EKG_ITS ---
APPROVED REPORT Exam: Resting ECG Reason for Exam: WEAKNESS, falls Patient Location: E HR:71 bpm ECG Measurements Heart Rate 71 AXIS CO 181 P 60 QRSd 118 QRS -31 QT 434 T 46 QTc 472 Conclusion Sinus rhythm...normal P axis, V-rate 60- 99 Nonspecific intraventricular conduction delay...QRSd >115mS, not LBBB/RBBB
--- NOTE | 2024-10-06 09:45 | DI.RAD_ITS ---
Exam(s) XR CHEST 2V PA LATERAL EXAM: XR CHEST 2V PA LATERAL CLINICAL HISTORY: weakness, ?pneumonia. TECHNIQUE: 2D digital imaging was performed. COMPARISON: No exams were available for comparison FINDINGS: 2 views: Heart size is normal. The mediastinum is not widened. There is bandlike infiltrate in the right lung base. There is platelike atelectasis in the lateral left lung base. There are no pleural effusions. No pu lmonary edema. IMPRESSION: Right lung base infiltrate. No obvious pleural effusions. DATA REPOSITORY: RADIATION DOSE DELIVERED:
[2024-10-06 09:58] LABS: Abs Immature Grans 0.03 10^3/uL (0.0-0.06); Absolute Basophil Count 0.06 10^3/uL (0.0-0.2); Absolute Eosinophil Count 0.29 10^3/uL (0.0-0.7); Absolute Lymphocyte Count 1.81 10^3/uL (1.2-3.4); Absolute Monocyte Count 0.73 10^3/uL (0.1-0.8); Absolute Neutrophil Count 2.59 10^3/uL (1.2-6.7); Basophils % 1.1 %; Eosinophils % 5.3 %; HCT 46.9 % (40.0-50.0); HGB 15.6 g/dL (13.5-17.5); Immature Grans % 0.5 %; Lymphocytes % 32.8 %; MCH 28.9 pg (27.0-33.0); MCHC 33.3 % (32.0-36.0); MCV 87 fL (80-95); MPV 9.5 fL (8.0-11.0); Monocytes % 13.2 %; Neutrophils % 47.1 %; Platelet Count 279 10^3/uL (130-400); RDW 13.2 % (11.8-14.1); RDW-SD 41.9 fL; WBC 5.51 10^3/uL (4.4-10.8)
--- NOTE | 2024-10-06 09:59 | W.ED.GENAD ---
Discharge Plan Disposition Patient Disposition: Home Condition: Stable Discharge Details Clinical Impression: Weakness, Infiltrate noted on imaging study Primary Care Provider: Viridiana Torres ED Provider: Kem Kan Home Meds and New Rx's Prescriptions: New doxycycline hyclate 100 mg tablet 100 mg PO BID Qty: 14 0RF amoxicillin-pot clavulanate 875-125 mg tablet 1 tab PO BID Qty: 14 0RF Continued latanoprost 0.005 % drops 1 drp ophthalmic (eye) QPM metoprolol tartrate 100 mg tablet 150 mg PO BID magnesium oxide 400 mg (241.3 mg magnesium) tablet 400 mg PO DAILY melatonin 3 mg capsule 6 mg PO HS PRN aspirin 81 mg tablet,delayed release (DR/EC) 81 mg PO DAILY tamsulosin 0.4 mg capsule 0.4 mg PO QHS atorvastatin 80 mg tablet 80 mg PO DAILY hydroxychloroquine 200 mg tablet 200 mg PO BID Qty: 30 0RF hydrochlorothiazide 12.5 mg tablet 12.5 mg PO DAILY Patient Comments: TAKE ONE TABLET BY MOUTH EVERY DAY lisinopril 10 mg tablet 10 mg PO DAILY Discharge Instructions Additional Instructions: Your MRI did not show any signs of a new stroke. Your blood work also did not show any concerning findings. You had imaging of your blood vessels which did not show any significant findings other than you have a very small aneurysm which you probably had for a while. It is only 2 mm so no intervention is needed for this. You should let your primary care provider know that you have this when you follow-up with them. You should also follow-up with them within a week especially especially if not improving. Your xray showed signs of a pneumonia so you are being placed on antibiotics. If you feel significantly more ill or have any symptoms such as vomiting or difficulty breathing return to the emergency department for reevaluation HPI General Mode of arrival: EMS. Date/Time Provider Initiated Documentation: 10/06/24 09:49. Limitations to Documentation: no limitations. Information obtained by: patient. History of Present Illness 64 year old M presents to the emergency department with the chief complaint of general weakness, described as moderate, Patient started experiencing this day(s) (1) and it has been constant. No relieving factors improve symptom(s), No exacerbating factors reported . Patient notes denies chest pain and shortness of breath. Patient did receive the following treatments prior to arrival, none Related Data Home Medications ?Medication ?Instructions ?Recorded ?Confirmed hydroxychloroquine 200 mg tablet 200 mg PO BID #30 tabs 01/11/20 10/06/24 aspirin 81 mg tablet,delayed 81 mg PO DAILY 10/27/22 10/06/24 release atorvastatin 80 mg tablet 80 mg PO DAILY 10/27/22 10/06/24 latanoprost 0.005 % eye drops 1 drp ophthalmic (eye) QPM 10/27/22 10/06/24 magnesium oxide 400 mg (241.3 mg 400 mg PO DAILY 10/27/22 10/06/24 magnesium) tablet melatonin 3 mg capsule 6 mg PO HS PRN 10/27/22 10/06/24 metoprolol tartrate 100 mg tablet 150 mg PO BID 10/27/22 10/06/24 tamsulosin 0.4 mg capsule 0.4 mg PO QHS 10/27/22 10/06/24 amoxicillin 875 mg-potassium 1 tab PO BID #14 tabs 10/06/24 clavulanate 125 mg tablet doxycycline hyclate 100 mg tablet 100 mg PO BID #14 tabs 10/06/24 hydrochlorothiazide 12.5 mg tablet 12.5 mg PO DAILY 10/06/24 10/06/24 lisinopril 10 mg tablet 10 mg PO DAILY 10/06/24 10/06/24 Previous Rx's ?Medication ?Instructions ?Recorded hydroxychloroquine 200 mg tablet 200 mg PO BID #30 tabs 01/11/20 amoxicillin 875 mg-potassium 1 tab PO BID #14 tabs 10/06/24 clavulanate 125 mg tablet doxycycline hyclate 100 mg tablet 100 mg PO BID #14 tabs 10/06/24 Allergies Allergy/AdvReac Type Severity Reaction Status Date / Time No Known Allergies Allergy Unverified 12/30/22 09:10 General Stated Complaint: GenMedical JT: 3 Review of Systems All systems reviewed & are unremarkable except as noted in HPI and below Constitutional Constitutional: Denies chills, Denies fever(s) and Reports weakness Cardiovascular Cardiovascular: Denies chest pain and Denies dyspnea Respiratory Respiratory: Denies cough and Denies dyspnea Gastrointestinal Gastrointestinal: Denies abdominal pain, Denies nausea and Denies vomiting Neurologic Neurologic: Reports weakness Exam Const General: no acute distress Orientation: alert HENMT Head: atraumatic Ears: external ears normal General nose exam: external nose normal Mouth: moist mucous membranes Neck Neck: normal visual inspection Resp Effort & Inspection: normal respiratory effort and able to speak in complete sentences Auscultation: clear to auscultation bilaterally Cardio Rate: regular rate GI Palpation: soft and nontender Skin General skin exam: no rashes or lesions noted Neuro General: patient alert and patient oriented x3 Cranial Nerves: PERRL Extrem General: normal to inspection Psych Mental Status: mental status grossly normal Course Vital Signs Vital signs: Vital Signs Pulse 64 10/06/24 09:35 Respiratory Rate 20 10/06/24 09:35 Blood Pressure 170/89 H 10/06/24 09:35 Pulse Oximetry 98 10/06/24 09:35 Temperature 37.0 C 10/06/24 09:51 Temperature Source Oral 10/06/24 09:51 Pulse 65 10/06/24 09:51 Respiratory Rate 16 10/06/24 09:53 Respiratory Effort Normal, Non-Labored 10/06/24 09:53 Respiratory Depth Normal 10/06/24 09:53 Respiratory Pattern Normal 10/06/24 09:53 Blood Pressure 170/89 H 10/06/24 09:51 Blood Pressure Mean 116 10/06/24 09:51 Blood Pressure Position Supine 10/06/24 09:35 Pulse Oximetry 98 10/06/24 09:51 Oxygen Delivery Method Room Air 10/06/24 09:51 Oxygen Flow Rate 0 10/06/24 09:51 Pain Level 0 10/06/24 09:35 Lab/Test Results Lab/Test Results: Laboratory Tests Range/Units 10/06/24 09:29 WBC (4.4-10.8) 10^3/uL 5.51 RBC (4.36-5.78) 10^6/uL 5.40 Hgb (13.5-17.5) g/dL 15.6 Hct (40.0-50.0) % 46.9 MCV (80-95) fL 87 MCH (27.0-33.0) pg 28.9 MCHC (32.0-36.0) % 33.3 RDW (11.8-14.1) % 13.2 Plt Count (130-400) 10^3/uL 279 MPV (8.0-11.0) fL 9.5 Immature Gran % % 0.5 Neutrophils % % 47.1 Lymphocytes % % 32.8 Monocytes % % 13.2 Eosinophils % % 5.3 Basophils % % 1.1 Nucleated RBC % (0.0-0.3) % 0.0 Absolute Neutrophils (1.2-6.7) 10^3/uL 2.59 Absolute Lymphocytes (1.2-3.4) 10^3/uL 1.81 Absolute Monocytes (0.1-0.8) 10^3/uL 0.73 Absolute Eosinophils (0.0-0.7) 10^3/uL 0.29 Absolute Basophils (0.0-0.2) 10^3/uL 0.06 Medical Decision Making 64-year-old male states he had a stroke a few years ago, CKD, cognitive impairment, who comes in with EMS with feeling weak since yesterday morning. He denies any chest pain, headaches, vomiting, fevers, chills, cough. He arrives hemodynamically stable, mildly hypertensive. He does have left-sided facial droop when I ask if this is new for him he says he does not think his face usually droops. He is moving all extremities well but does have very mild drift in the right arm or right leg. No abdominal tenderness, clear lungs. NIH is 4 on my arrival due to the facial droop 2.1 for the right arm and 1 drift in the right leg. Given his presentation and concern for possible CVA, I will proceed with a CT head to start with given his CKD and if his labs are adequate we will proceed with a CTA as well. Will check a CBC, CMP and troponins as well. Patient had symptoms for 24 hours and was not a lytic or interventional candidate. Labs show no significant change from baseline and renal function adequate for CTA so I added this on. CTA results pending, CT head Noncon interpreted by radiology as no acute findings, has evidence of old CVAs. Patient is stable and feels better. He now is more able to confirm that he usually does have facial droop on the left side. He has no drift now. Will see if there is time for an MRI of the brain to be done. CTA shows a small 2 mm aneurysm that is likely a incidental finding. He has no headaches. X-ray is read as possible right lower infiltrate. He denies any cough but given the weakness I am going to initiate antibiotics. He feels that he is at his baseline and is requesting discharge home. He was able to get up and sit in a wheelchair which he says he is at most of the day. Given reassuring workup I feel he can follow-up with his PCP and return precautions given Medical Records Medical records reviewed: Yes I reviewed the patient's medical records. Lab Data Lab results reviewed: Yes I reviewed the patient's lab results. ECG Data Attestation: I personally reviewed and interpreted this ECG (s) as follows: Prior ECG tracings: available for review Interpretation: sinus rate of 71 no stemi Quality:SDOH Health Related Social Needs: No Data to Display [facility] All Active Problems (Updated 10/06/24 @ 12:43 by Kem Kan MD) Infiltrate noted on imaging study (Acute) Weakness (Acute) Pain in both feet (Acute) Venous insufficiency of both lower extremities (Acute) Onychomycosis (Acute) Nail dystrophy (Acute) Pedal edema (Acute) Long-term use of Plaquenil (Acute) CKD (chronic kidney disease), stage III (Acute) Elevated troponin (Acute) Dementia with behavioral disturbance (Chronic) mixed vascular and Alzheimer's dementia Cognitive impairment (Acute) Urinary retention (Acute) Ventricular tachycardia (Chronic) Gout (Acute) Ambulatory dysfunction (Acute) Osteoarthritis (Chronic) Arthritis, rheumatoid (Chronic) HTN (hypertension) (Chronic) Medical History CHF (congestive heart failure) Chronic alcoholism in remission Cough Glaucoma Surgical History History of bunionectomy of left great toe Social History Smoking/Tobacco Use Status: Former Tobacco Use Smoking risk assessment performed?: Yes Alcohol Intake: former Drug use: Never Substance use type: does not use Do you feel safe at home: Yes Do you feel safe in your relationship?: Yes
[2024-10-06 10:14] LABS: Prothrombin Time 10.5 sec (9.1-11.1)
[2024-10-06 10:23] LABS: ALT 19 U/L (16-63); AST 20 U/L (15-37); Albumin 3.7 g/dL (3.4-5.0); Alkaline Phosphatase 75 U/L (46-116); BUN 20 mg/dL (7-18); Bilirubin, Total 0.8 mg/dL (0.2-1.0); CREATININE 1.6 mg/dL (0.70-1.30); Calcium 9.1 mg/dL (8.5-10.1); Chloride 104 mmol/L (98-107); Estimated GFR 47.23 (mL/min/1.73m2); Glucose 84 mg/dL (74-106); NT-proBNP 220 pg/mL (<300); Potassium 3.8 mmol/L (3.5-5.1); Sodium 142 mmol/L (136-145); TSH (W/Ref FT4) 2.26 uIU/mL (0.36-3.74); Troponin I 19 ng/L (<or=76)
[2024-10-06 10:27] LABS: Procalcitonin < 0.10 ng/mL
--- NOTE | 2024-10-06 10:30 | DI.CT_ITS ---
Exam(s) CT HEAD WO EXAM: CT HEAD WO CLINICAL HISTORY: general weakness, facial droop. TECHNIQUE: Imaging Protocol: Axial computed tomography images with coronal and sagittal reformatted images were created and reviewed COMPARISON: CT CT BRAIN NECK CTA from 10/06/2024 CR XR CHEST 2V PA LATERAL from 10/06/2024 FINDINGS: There are no skull fractures. Mild mucosal thickening in the maxillary sinuses and there is partially included polyp or post inflammatory retention cyst in the medial wall the left maxillary sinus. The re are acute fluid levels. Also no mastoid effusions. There is no evidence of intracranial hemorrhage, mass effect, or shift of midline structures. There are no extra-axial fluid collections. There is calcification noted in the vertebral arteries and int ernal carotid arteries in the skull base. Small lacune is in the right cerebellar hemisphere noted. There is also evidence of prior infarct in the right occipital lobe. Establish appearing nonhemorrh agic lacunar infarct measuring 5-6 mm in the right external capsule and a smaller 3 millimeter lacune in the left basal ganglia. Also lacunar infarcts noted in bilateral periventricular white matter. Size of the lateral and 3rd ventricles somewhat prominent although there does appear to be significan t symmetrical atrophy here. IMPRESSION: Right occipital lobe infarct, probably not acute. Multiple lacunar infarcts in the bilateral periventricular white matter. No hemorrhage. Prominent lateral and 3rd ventricles. Correlation with any clinical signs of normal pressure hydroce phalus. Findings called by myself to ER physician 10/06/2024 at 11:14 a.m. RADIATION DOSE DELIVERED: 910.36mGy.cm Total DLP DATA REPOSITORY: All CT scans at this facility are submitted to the National Radiology Data Registry (NRDR) Dose Index Registry (DIR) with the [employer] ([employer]). RADIATION OPTIMIZATION: All CT scans at this facility use at least one of these dose optimization te chniques: automated exposure control; mA and/or kV adjustment per patient size (includes targeted exa ms where dose is matched to clinical indication); or iterative reconstruction.
[2024-10-06] MEDS: Omnipaque 350 MG/ML 100 ML BTL IJ (10:45)
[2024-10-06] MEDS: Normal Saline - Diluent 50 ML VIAL IJ (10:47)
--- NOTE | 2024-10-06 10:54 | DI.CT_ITS ---
Exam(s) CT BRAIN NECK CTA EXAM: CT BRAIN NECK CTA CLINICAL HISTORY: ?cva, facial droop, weakness. TECHNIQUE: Imaging Protocol: Axial CT angiography was performed with multi-slice acquisition and mu lti-planar and/or 3D reconstructions. CONTRAST MATERIAL: Intravenous: Omnipaque 350 Contrast volume:70 mL COMPARISON: CT CT HEAD WO from 10/06/2024 FINDINGS: CTA Neck W: Aortic arch anatomy: Aortic arch anatomy is bovine. No intimal flap evident. Anterior circulation: Both common carotid arteries ascend with normal luminal diameters. At the level the carotid bulbs and proximal internal carotid arteries there is small partially calcif ied plaque without hemodynamically significant stenosis evident. 10 percent stenosis bilaterally. A bradley this level the internal carotid arteries in the upper neck are nicely patent as well as in the s kull base-carotid canals. Posterior circulation: Both vertebral arteries originate in conventional fashion off of the subclavian arteries and there is no obvious stenosis at the origin of the vertebral arteries. The left vertebral artery is dominant and ascends with a luminal diameter of 4 mm without stenosis no r dissection. It exhibits some calcified plaque at the skull base level with mild stenosis. The lef t vertebral artery is the main contributor to the formation of the basilar artery. The right vertebral artery is a thin vessel throughout its length exhibiting diameter of 2 mm through out its length. At the skull base it does not contribute to the formation of the basilar artery. CTA Brain W: Anterior circulation: Both internal carotid arteries are patent in the skull base-carotid canals. There is mural calcifica tion in both intra cavernous internal carotid arteries and there appears to be a mild-moderate stenos is at the level of the junction of the supraclinoid aspect of the left ICA due to calcified plaque. 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 Both A1 segments are patent as are both anterior cerebral arteries and there is no aneurysm at the le dm the anterior communicating artery. Right middle cerebral artery is patent without significant stenosis. There is mild stenosis in the p roximal aspect of the left middle cerebral artery just beyond its origin. This is not a tight stenos is and there is no intraluminal thrombus. No dissection. There are also no aneurysms of the middle cerebral artery evident. Posterior circulation: The basilar artery ascends without evidence of significant stenosis. Distally it gives off superior cerebellar arteries. Above this level it terminates as right posterior cerebral artery. The left po sterior cerebral artery is supplied by posterior communicating artery on the left side of the [place]. There is no aneurysm at the tip of the basilar artery. CT BRAIN: See separate dictations for brain CT scan and brain MRI. There are no ring enhancing lesions in the brain and no abnormal meningeal enhancement. IMPRESSION: 1. There is mild partially calcified plaque at the carotid bifurcations and proximal ICAs in the neck but less than 10 percent stenosis bilaterally. Also no dissection. 2. Left vertebral artery is dominant with luminal diameter 4 mm. The right vertebral artery is a di minutive size vessel throughout its length and terminates at the skull base. 3. Patent intracranial arteries. 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 This is best seen on the coronal reformatted images . 4. See separate MRI dictation. Report called by myself to ER physician 10/06/2024 at 11:50 a.m. RADIATION DOSE DELIVERED: 1,533.11mGy.cm Total DLP DATA REPOSITORY: All CT scans at this facility are submitted to the National Radiology Data Registry (NRDR) Dose Index Registry (DIR) with the [employer] ([employer]). RADIATION OPTIMIZATION: All CT scans at this facility use at least one of these dose optimization te chniques: automated exposure control; mA and/or kV adjustment per patient size (includes targeted exa ms where dose is matched to clinical indication); or iterative reconstruction.
--- NOTE | 2024-10-06 11:15 | DI.MRI_ITS ---
Exam(s) MR BRAIN WO EXAM: MR BRAIN WO CLINICAL HISTORY: ?cva TECHNIQUE: Multiplanar multisequence MRI of the brain was performed. COMPARISON: No exams were available for comparison FINDINGS: CEREBRAL PARENCHYMA: There is no evidence of intracranial hemorrhage, mass effect, or shift of midline structures. There are no extra-axial fluid collections. There are small lacunar infarct in the right cerebellar hemisphere. There is a nonacute infarct in t he right occipital lobe. Also abundant bilateral periventricular signal abnormality consistent with chronic small vessel disease and multiple bilateral lacunar infarcts in the periventricular white mat ter. There is no significant focal signal abnormality evident on diffusion imaging to suggest acute ischem ic event. PITUITARY GLAND: No mass nor parasellar abnormality. No obvious abnormality in the cavernous sinuses. FLOW VOIDS: Expected flow voids are noted. Left vertebral artery is dominant. The right vertebral a rtery size is diminutive at the skull base. PARANASAL SINUSES: There is some mucosal thickening in the left maxillary sinus and there is a post i nflammatory retention cyst in the medial floor of the left maxillary sinus. No associated fluid leve l. The other paranasal sinuses are clear. ORBITS: No obvious findings. IMPRESSION: Nonacute right occipital lobe infarct. Abundant bilateral periventricular signal abnormality consistent with chronic small vessel disease an d there also nonacute lacunar infarcts in the basal ganglia and bilateral periventricular white matte r. Also small nonacute lacune noted in the right cerebellar hemisphere. No evidence of restricted diffusion. Findings called by myself to ER physician 10/06/2024 at 12:08 noon. DATA REPOSITORY:
[2024-10-06 12:19] LABS: Troponin I 20 ng/L (<or=76)
[2024-10-06] MEDS: Amoxicillin 875/Clav. 125 TAB PO (12:57)
[2024-10-06] MEDS: Doxycycline Hyclate 100 MG CAP PO (12:57)
== END 2024-10-06 13:49 | disposition home or self-care (01) ==
PROVIDERS: Emergency Provider Emergency Medicine; PCP Nurse Practitioner Family
DX: R53.1 Weakness (principal); I12.9 Hypertensive chronic kidney disease with stage 1 through stage 4 chronic kidney disease, or unspecified chronic kidney disease; N18.30 Chronic kidney disease, stage 3 unspecified; I10 Essential (primary) hypertension; G30.9 Alzheimer's disease, unspecified; F02.818 Dementia in other diseases classified elsewhere, unspecified severity, with other behavioral disturbance; Z86.73 Personal history of transient ischemic attack (TIA), and cerebral infarction without residual deficits; Z87.891 Personal history of nicotine dependence
CPT/HCPCS: 70496; 70498; 80053; 82962; 84145; 87426; 93005; 99285; 70450; 70551; 71046; 83735; 83880; 84443; 84484; 85025; 85610; 85730; 93010; J3490